=== PATIENT | female | born 1935 | race Caucasian/White ===

== ENCOUNTER 2017-03-07 18:15 | Inpatient (IN) | payer MEDICARE ==
[~2017-03-07] VITALS: Ht 165.1 cm; Wt 61.4 kg
[2017-03-07 19:37] LABS: BASO # 0.1 x10^3/uL (0.0-0.2); BASO % 1 % (0-3); EOS # 0.1 x10^3/uL (0.0-0.7); EOS % 1 % (0-3); HEMATOCRIT 38.2 % (36.0-47.0); HEMOGLOBIN 12.9 g/dL (12.0-15.5); LYMPH # 2.4 x10^3/uL (1.0-4.8); LYMPH % 31 % (24-48); MEAN CORPUSCULAR HEMOGLOBIN 35 pg (25-35); MEAN CORPUSCULAR HGB CONC 34 g/dL (31-37); MEAN CORPUSCULAR VOLUME 104 fL (79-100); MONO # 0.8 x10^3/uL (0.0-1.1); MONO % 10 % (0-9); NEUT # 4.6 x10^3uL (1.8-7.7); NEUT % 57 % (31-73); PLATELET COUNT 200 x10^3/uL (140-400); RED BLOOD COUNT 3.67 x10^6/uL (3.50-5.40); RED CELL DISTRIBUTION WIDTH 13.4 % (11.5-14.5)
[2017-03-07 19:41] LABS: ALBUMIN 3.7 g/dL (3.4-5.0); CALCIUM 8.8 mg/dL (8.5-10.1); POTASSIUM 3.9 mmol/L (3.5-5.1); TOTAL BILIRUBIN 0.3 mg/dL (0.2-1.0); TOTAL PROTEIN 7.4 g/dL (6.4-8.2)
[2017-03-07 20:15] LABS: COLOR,URINE YELLOW
[2017-03-07] MEDS ORDERED: ACETAMINOPHEN 325 MG TABLET PO PRN ×2 (20:15→22:00)
[2017-03-07 20:16] LABS: BILIRUBIN,URINE NEG (NEG); CLARITY,URINE CLEAR; GLUCOSE,URINE NEG (NEG); NITRITE,URINE NEG (NEG); UROBILINOGEN,URINE 0.2 mg/dL (0.2 mg/dL)
[2017-03-07 20:23] LABS: BACTERIA,URINE FEW /HPF (0-FEW); HYALINE CASTS, URINE OCC /HPF; RBC,URINE OCC /HPF (0-2); SQUAMOUS EPITHELIAL CELL,UR OCC /LPF; WBC,URINE OCC /HPF (0-4)
[2017-03-07] MEDS ORDERED: DONEPEZIL PO (21:42)
[2017-03-07] MEDS ORDERED: METO50TA4 PO (21:42)
[2017-03-07] MEDS ORDERED: ACET325T21 PO (21:42)
[2017-03-07] MEDS ORDERED: ALEN70TA5 PO (21:42)
[2017-03-07] MEDS ORDERED: CHOL20009 PO (21:42)
[2017-03-07] MEDS ORDERED: CYAN10002 IM (21:42)
[2017-03-07] MEDS ORDERED: LEVO150T5 PO (21:42)
[2017-03-07] MEDS ORDERED: SERT50TA PO (21:42)
[2017-03-07] MEDS ORDERED: OLAN5TAB5 PO (21:42)
[2017-03-07] MEDS ORDERED: QUET25TA5 PO (21:42)
[2017-03-07] MEDS ORDERED: ASCO10002 PO (21:42)
[2017-03-07] MEDS ORDERED: AMLO5TAB4 PO (21:42)
[2017-03-07] MEDS ORDERED: ABH CREAM TD (21:42)
[2017-03-07] MEDS ORDERED: MEMA28CA PO (21:42)
[2017-03-07] MEDS ORDERED: CALC-112 PO (21:42)
[2017-03-07] MEDS ORDERED: LOPE2TAB27 PO (21:47)
[2017-03-07] MEDS ORDERED: METHYL SALICYLATE/MENTHOL TOPICAL OINTMENT 29GM TUBE. TP PRN (22:00)
[2017-03-07] MEDS ORDERED: MAGNESIUM HYDROXIDE 2,400 MG/30 ML ORAL.SUSP. PO PRN (22:00)
[2017-03-07] MEDS ORDERED: MAG HYDROX/AL HYDROX/SIMETH 30 ML ORAL.SUSP PO PRN (22:00)
[2017-03-07 22:07] VITALS: BP 160/85
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
--- NOTE | 2017-03-08 00:10 | EKG ---
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
[2017-03-08] MEDS ORDERED: ABH TD PRN (06:00)
[2017-03-08] MEDS ORDERED: ACETAMINOPHEN 325 MG TABLET PO PRN (06:00)
[2017-03-08 06:02] VITALS: BP 129/80
[2017-03-08] MEDS ORDERED: LOPERAMIDE 2 MG CAPSULE PO PRN (07:30)
[2017-03-08] MEDS: CHOLECALCIFEROL (VITAMIN D3) 1,000 UNIT TABLET PO SCH ×2 (07:52→09:00)
[2017-03-08] MEDS: SERTRALINE 50 MG TABLET. PO SCH (07:53)
[2017-03-08] MEDS: ASCORBIC ACID 500 MG TABLET PO SCH ×2 (07:53→09:00)
[2017-03-08] MEDS: amLODIPine BESYLATE 5 MG TABLET PO SCH (07:53)
[2017-03-08] MEDS: CALCIUM CARB/VIT D3 500/200 TABLET PO SCH ×2 (07:53→09:00)
[2017-03-08] MEDS: MEMANTINE 10 MG TABLET. PO SCH ×2 (07:54→20:21)
[2017-03-08] MEDS: LEVOTHYROXINE 150 MCG TABLET PO SCH (07:54)
[2017-03-08] MEDS: METOPROLOL SUCC 24HR ER 50 MG TAB.ER.24H. PO SCH ×2 (07:54→09:00)
[2017-03-08] MEDS: QUEtiapine 25 MG TABLET. PO SCH ×3 (07:54→20:22)
[2017-03-08] MEDS ORDERED: CYANOCOBALAMIN (VITAMIN B-12) 1,000 MCG/ML VIAL IM SCH (09:00)
--- NOTE | 2017-03-08 11:27 | PDOC ---
Exam Note: Brenden Note: Please also refer to the separate dictated note~for this date of service dictated separately.~Patient seen individually. Discussed the patient with Nursing staff reviewed the chart.~Reviewed interim history and current functioning. Reviewed vital signs,~Labs/ Radiology~and current medications noted below. Continue current treatment with the changes noted in the dictated addendum note Assessment: Vital Signs: Vital Signs Date Time Temp Pulse Resp B/P (MAP) Pulse Ox O2 Delivery O2 Flow Rate FiO2 03/08/17 07:54 64 129/80 03/08/17 06:02 98.2 18 93 03/07/17 18:23 Room Air Labs: Laboratory Tests Test 03/07/17 19:00 03/07/17 20:00 White Blood Count 8.0 x10^3/uL (4.0-11.0) Red Blood Count 3.67 x10^6/uL (3.50-5.40) Hemoglobin 12.9 g/dL (12.0-15.5) Hematocrit 38.2 % (36.0-47.0) Mean Corpuscular Volume 104 fL (79-100) H Mean Corpuscular Hemoglobin 35 pg (25-35) Mean Corpuscular Hemoglobin Concent 34 g/dL (31-37) Red Cell Distribution Width 13.4 % (11.5-14.5) Platelet Count 200 x10^3/uL (140-400) Neutrophils (%) (Auto) 57 % (31-73) Lymphocytes (%) (Auto) 31 % (24-48) Monocytes (%) (Auto) 10 % (0-9) H Eosinophils (%) (Auto) 1 % (0-3) Basophils (%) (Auto) 1 % (0-3) Neutrophils # (Auto) 4.6 x10^3uL (1.8-7.7) Lymphocytes # (Auto) 2.4 x10^3/uL (1.0-4.8) Monocytes # (Auto) 0.8 x10^3/uL (0.0-1.1) Eosinophils # (Auto) 0.1 x10^3/uL (0.0-0.7) Basophils # (Auto) 0.1 x10^3/uL (0.0-0.2) Sodium Level 143 mmol/L (136-145) Potassium Level 3.9 mmol/L (3.5-5.1) Chloride Level 106 mmol/L (98-107) Carbon Dioxide Level 28 mmol/L (21-32) Anion Gap 9 (6-14) Blood Urea Nitrogen 12 mg/dL (7-20) Creatinine 1.0 mg/dL (0.6-1.0) Estimated GFR (Cockcroft-Gault) 53.0 BUN/Creatinine Ratio 12 (6-20) Glucose Level 75 mg/dL (70-99) Calcium Level 8.8 mg/dL (8.5-10.1) Magnesium Level 2.0 mg/dL (1.8-2.4) Total Bilirubin 0.3 mg/dL (0.2-1.0) Aspartate Amino Transferase (AST) 19 U/L (15-37) Alanine Aminotransferase (ALT) 21 U/L (14-59) Alkaline Phosphatase 59 U/L (46-116) Total Protein 7.4 g/dL (6.4-8.2) Albumin 3.7 g/dL (3.4-5.0) Albumin/Globulin Ratio 1.0 (1.0-1.7) Urine Collection Type Void Urine Color Yellow Urine Clarity Clear Urine pH 6.0 Urine Specific [place] 1.020 Urine Protein Neg (NEG-TRACE) Urine Glucose (UA) Neg mg/dL (NEG) Urine Ketones (Stick) Trace mg/dL (NEG) Urine Blood Neg (NEG) Urine Nitrite Neg (NEG) Urine Bilirubin Neg (NEG) Urine Urobilinogen Dipstick 0.2 mg/dL (0.2 mg/dL) Urine Leukocyte Esterase Neg (NEG) Urine RBC Occ /HPF (0-2) Urine WBC Occ /HPF (0-4) Urine Squamous Epithelial Cells Occ /LPF Urine Bacteria Few /HPF (0-FEW) Urine Hyaline Casts Occ /HPF Urine Mucus Slight /LPF Current Medications: Meds: Current Medications Acetaminophen (Tylenol) 650 mg PRN Q6HRS PRN PO PAIN / TEMP; Start 03/07/17 at 20:15; Stop 03/07/17 at 22:01; Status DC Acetaminophen (Tylenol) 650 mg PRN Q6HRS PRN PO PAIN / TEMP; Start 03/07/17 at 22:00 Multi-Ingredient Ointment (Analgesic [place]) 1 pillo PRN QID PRN TP MUSCLE PAIN; Start 03/07/17 at 22:00 Al Hydroxide/Mg Hydroxide (Mylanta Plus Xs) 15 ml PRN AFTMEALHC PRN PO DYSPEPSIA; Start 03/07/17 at 22:00 Magnesium Hydroxide (Milk Of Magnesia) 2,400 mg PRN QHS PRN PO CONSTIPATION; Start 03/07/17 at 22:00 Olanzapine (ZyPREXA ZYDIS) 2.5 mg PRN Q2HR PRN PO PSYCHOSIS Last administered on 03/08/17at 06:36; Start 03/07/17 at 22:15 Quetiapine Fumarate (SEROquel) 25 mg TID PO Last administered on 03/08/17at 07: 54; Start 03/08/17 at 09:00 Sertraline HCl (Zoloft) 50 mg DAILY PO Last administered on 03/08/17at 07:53; Start 03/08/17 at 09:00 Acetaminophen (Tylenol) 325 mg PRN Q6HRS PRN PO PAIN / TEMP; Start 03/08/17 at 06:00 Amlodipine Besylate (Norvasc) 5 mg DAILY PO Last administered on 03/08/17at 07: 53; Start 03/08/17 at 09:00 Cyanocobalamin (Vitamin B-12) 1,000 mcg QMONTH IM ; Start 03/08/17 at 09:00 Levothyroxine Sodium (Synthroid) 150 mcg DAILY06 PO Last administered on at 07:54; Start 03/08/17 at 07:30 Metoprolol Succinate (Toprol Xl) 50 mg DAILY PO Last administered on 03/08/17at 07:54; Start 03/08/17 at 09:00 Alendronate Sodium (Fosamax) 70 mg Q7D PO ; Start 03/09/17 at 06:00 Ascorbic Acid (Vitamin C) 1,000 mg DAILY PO Last administered on 03/08/17at 07: 53; Start 03/08/17 at 09:00 Calcium/Vitamin D (Oscal D 500mg/ 200uts) 1 tab DAILY PO Last administered on at 07:53; Start 03/08/17 at 09:00 Vitamin D (Vitamin D3) 2,000 unit DAILY PO Last administered on 03/08/17at 07:52 ; Start 03/08/17 at 09:00 Loperamide HCl (Imodium) 4 mg PRN DAILY PRN PO LOOSE STOOL; Start 03/08/17 at 07:30 Memantine (Namenda) 10 mg BID PO Last administered on 03/08/17at 07:54; Start at 09:00 Non-Formulary Medication 1 ml PRN TID PRN TD ANXIETY / AGITATION; Start at 06:00; Status UNV Donepezil HCl (Aricept) 23 mg QHS PO ; Start 03/08/17 at 21:00 Active Scripts Active Reported Loperamide (Loperamide Hcl) 2 Mg Tablet 4 Mg PO PRN DAILY PRN Acetaminophen 325 Mg Tablet 325 Mg PO PRN Q6HRS PRN [Abh Cream] 1 Ml TD PRN TID PRN Vitamin D3 (Cholecalciferol (Vitamin D3)) 2,000 Unit Capsule 2,000 Unit PO DAILY Vitamin C (Ascorbic Acid) 1,000 Mg Tablet 1,000 Mg PO DAILY Zoloft (Sertraline Hcl) 50 Mg Tablet 50 Mg PO DAILY Seroquel (Quetiapine Fumarate) 25 Mg Tablet 25 Mg PO TID Namenda Xr (Memantine Hcl) 28 Mg Cap.spr.24 28 Mg PO DAILY Toprol Xl (Metoprolol Succinate) 50 Mg Tab.er.24h 50 Mg PO DAILY Levothyroxine Sodium 150 Mcg Tablet 150 Mcg PO DAILYAC Zyprexa Zydis (Olanzapine) 5 Mg Tab.rapdis 2.5 Mg PO PRN Q2HR PRN MDD 7.5 [Donepezil] 23 Mg PO QHS Cyanocobalamin Injection (Cyanocobalamin (Vitamin B-12)) 1,000 Mcg/1 Ml Vial 1, 000 Mcg IJ QMONTH Citracal + D Er Tablet (Calcium Carb & Cit/Vitamin D3) 1 Each Tablet.er 1 Each PO DAILY Norvasc (Amlodipine Besylate) 5 Mg Tablet 5 Mg PO DAILY Alendronate Sodium 70 Mg Tablet 70 Mg PO QFR I have reviewed the current psychotropics carefully including drug interactions. Risk benefit ratio favors no change other than as noted in my dictated progress note. Diagnosis: Problems: (1) Anxiety disorder (2) Dementia in Alzheimer's disease with delusions (3) Dementia in Alzheimer's disease with depression (4) Dementia, vascular, with delusions (5) Dementia, vascular, with depression (6) Impulse control disorder FALGUNI RUBIO MD Mar 08, 2017 11:27
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
[2017-03-08 12:44] LABS: THYROID STIM HORMONE (TSH) 69.972 uIU/mL (0.358-3.740)
--- NOTE | 2017-03-08 14:33 | HP ---
ADMIT DATE: 03/07/2017 PSYCHIATRIC ADMISSION HISTORY AND EVALUATION This note covers the elements not covered in my initial note of 03/08/2017. This patient is at [facility], but the telephone line is down at the hospital and I am dictating at the [facility] system. IDENTIFYING DATA: The patient is an 81-year-old female referred to us from [facility] in [place], [place] by Dr. Asif Sanders, her primary care physician, on account of worsening confusion, violent outbursts, being destructive to property, combative with staff and making suicidal statements and exit seeking. She has also been aggressive and combative with patience. She has failed outpatient psychiatric interventions, referred for inpatient psychiatric stabilization. CHIEF COMPLAINT: "No, I won't do that". The patient is quite disorganized, walking up and down the hallway, paranoid about anything I talk to her, refused her physical exam with Dr. Beauchamp. Nursing staff informed me earlier in the day that they already had to administer Zyprexa p.r.n. on 2 or 3 occasions on account of her agitation and psychosis. HISTORY OF PRESENT ILLNESS: The patient has a history of dementia and Alzheimer's, vascular type. She has been residing at the above group home for some time, but over the recent past, she has been extremely agitated, aggressive, paranoid and delusional. She presented to the Emergency Room at [facility] and the code pope had to be called in the Emergency Room and the patient had arrived in restraints. She was agitated, irritable with marked mood lability. No clear history of bipolar disorder or homicidal ideation. She is disorganized, unable to describe to me any specific suicidal plans. PAST PSYCHIATRIC HISTORY: As above. PAST MEDICAL HISTORY: Hypothyroidism and hypertension. ALLERGIES: SULFA. CODE STATUS: Full. ACCU-CHEKS: None. DIET: Regular. Takes her medications hidden, ambulates ad olya. U/A is negative. CURRENT PSYCHOTROPICS: Aricept 23 mg p.o. at bedtime, Namenda XR 28 mg a day, Seroquel 25 mg 3 times a day, Zoloft 50 mg a day, Ativan, Benadryl, haloperidol cream 1 mL a.m. and p.r.n. Zyprexa p.r.n. was added. FAMILY HISTORY: Noncontributory. SOCIAL HISTORY: No history of alcohol or drug abuse. No physical, sexual or elder abuse history is noted. Not known to be a perpetrator. MENTAL STATUS EXAMINATION: The patient was seen individually on the morning of 03/08/2017. She is ambulating up and down the hallway, quite paranoid, suspicious, confused. Insight, judgment, recent and remote memory, attention, concentration and fund of knowledge poor, consistent with her diagnosis. REACTION TO HOSPITALIZATION: The patient is oblivious of this. ASSETS: Stable living at the above group home. IMPRESSION: Major neurocognitive disorder; Alzheimer, vascular with depression, delusion and behavioral disturbance; anxiety disorder, unspecified and impulse control disorder, unspecified. Rest diagnoses as above. PLAN: Admit to Geropsychiatry Unit at [facility]. I will see the patient daily individually. Request medical followup with Dr. Beauchamp/Dr. Canales. Change the Namenda XR 28 mg a day to Namenda 10 mg twice a day, though I am not sure what benefit she would have with Aricept and Namenda at this stage of dementia, and we will reassess this. Maintain Seroquel and Zoloft and we do not have the ABH cream; we will use Zyprexa instead. Consider Depakote as a mood stabilizer, but I would like to give it another day for assessment before deciding. MAN Minna RUBIO MD DR: JAMEE/rachael JOB#: [id number] / [id number]
[2017-03-08 15:49] VITALS: BP 159/81
--- NOTE | 2017-03-08 20:00 | PDOC ---
Exam Note: Brenden Note: Please also refer to the separate dictated note~for this date of service dictated separately.~Patient seen individually. Discussed the patient with Nursing staff reviewed the chart.~Reviewed interim history and current functioning. Reviewed vital signs,~Labs/ Radiology~and current medications noted below. Continue current treatment with the changes noted in the dictated addendum note Assessment: Vital Signs: Vital Signs Date Time Temp Pulse Resp B/P (MAP) Pulse Ox O2 Delivery O2 Flow Rate FiO2 03/08/17 15:49 97.8 81 16 159/81 (107) 96 03/07/17 18:23 Room Air Current Medications: Meds: Current Medications Acetaminophen (Tylenol) 650 mg PRN Q6HRS PRN PO PAIN / TEMP; Start 03/07/17 at 20:15; Stop 03/07/17 at 22:01; Status DC Acetaminophen (Tylenol) 650 mg PRN Q6HRS PRN PO PAIN / TEMP; Start 03/07/17 at 22:00 Multi-Ingredient Ointment (Analgesic [place]) 1 pillo PRN QID PRN TP MUSCLE PAIN; Start 03/07/17 at 22:00 Al Hydroxide/Mg Hydroxide (Mylanta Plus Xs) 15 ml PRN AFTMEALHC PRN PO DYSPEPSIA; Start 03/07/17 at 22:00 Magnesium Hydroxide (Milk Of Magnesia) 2,400 mg PRN QHS PRN PO CONSTIPATION; Start 03/07/17 at 22:00 Olanzapine (ZyPREXA ZYDIS) 2.5 mg PRN Q2HR PRN PO PSYCHOSIS Last administered on 03/08/17at 06:36; Start 03/07/17 at 22:15 Quetiapine Fumarate (SEROquel) 25 mg TID PO Last administered on 03/08/17at 15: 31; Start 03/08/17 at 09:00 Sertraline HCl (Zoloft) 50 mg DAILY PO Last administered on 03/08/17at 07:53; Start 03/08/17 at 09:00 Acetaminophen (Tylenol) 325 mg PRN Q6HRS PRN PO PAIN / TEMP; Start 03/08/17 at 06:00 Amlodipine Besylate (Norvasc) 5 mg DAILY PO Last administered on 03/08/17at 07: 53; Start 03/08/17 at 09:00 Cyanocobalamin (Vitamin B-12) 1,000 mcg QMONTH IM ; Start 03/08/17 at 09:00; Stop 03/08/17 at 11:44; Status DC Levothyroxine Sodium (Synthroid) 150 mcg DAILY06 PO Last administered on at 07:54; Start 03/08/17 at 07:30 Metoprolol Succinate (Toprol Xl) 50 mg DAILY PO ; Start 03/08/17 at 09:00 Alendronate Sodium (Fosamax) 70 mg Q7D PO ; Start 03/09/17 at 06:00 Ascorbic Acid (Vitamin C) 1,000 mg DAILY PO ; Start 03/08/17 at 09:00 Calcium/Vitamin D (Oscal D 500mg/ 200uts) 1 tab DAILY PO ; Start 03/08/17 at 09: 00 Vitamin D (Vitamin D3) 2,000 unit DAILY PO ; Start 03/08/17 at 09:00 Loperamide HCl (Imodium) 4 mg PRN DAILY PRN PO LOOSE STOOL; Start 03/08/17 at 07:30 Memantine (Namenda) 10 mg BID PO Last administered on 03/08/17at 07:54; Start at 09:00 Non-Formulary Medication 1 ml PRN TID PRN TD ANXIETY / AGITATION; Start at 06:00; Stop 03/08/17 at 16:34; Status DC Donepezil HCl (Aricept) 23 mg QHS PO ; Start 03/08/17 at 21:00 Cyanocobalamin (Vitamin B-12) 1,000 mcg QMONTH IM ; Start 03/17/17 at 09:00 Active Scripts Active Reported Loperamide (Loperamide Hcl) 2 Mg Tablet 4 Mg PO PRN DAILY PRN Acetaminophen 325 Mg Tablet 325 Mg PO PRN Q6HRS PRN [Abh Cream] 1 Ml TD PRN TID PRN Vitamin D3 (Cholecalciferol (Vitamin D3)) 2,000 Unit Capsule 2,000 Unit PO DAILY Vitamin C (Ascorbic Acid) 1,000 Mg Tablet 1,000 Mg PO DAILY Zoloft (Sertraline Hcl) 50 Mg Tablet 50 Mg PO DAILY Seroquel (Quetiapine Fumarate) 25 Mg Tablet 25 Mg PO TID Namenda Xr (Memantine Hcl) 28 Mg Cap.spr.24 28 Mg PO DAILY Toprol Xl (Metoprolol Succinate) 50 Mg Tab.er.24h 50 Mg PO DAILY Levothyroxine Sodium 150 Mcg Tablet 150 Mcg PO DAILYAC Zyprexa Zydis (Olanzapine) 5 Mg Tab.rapdis 2.5 Mg PO PRN Q2HR PRN MDD 7.5 [Donepezil] 23 Mg PO QHS Cyanocobalamin Injection (Cyanocobalamin (Vitamin B-12)) 1,000 Mcg/1 Ml Vial 1, 000 Mcg IJ QMONTH Citracal + D Er Tablet (Calcium Carb & Cit/Vitamin D3) 1 Each Tablet.er 1 Each PO DAILY Norvasc (Amlodipine Besylate) 5 Mg Tablet 5 Mg PO DAILY Alendronate Sodium 70 Mg Tablet 70 Mg PO QFR I have reviewed the current psychotropics carefully including drug interactions. Risk benefit ratio favors no change other than as noted in my dictated progress note. Diagnosis: Problems: (1) Dementia with behavioral disturbance (2) Anxiety disorder (3) Impulse control disorder (4) Dementia, vascular, with depression (5) Dementia, vascular, with delusions (6) Dementia in Alzheimer's disease with depression (7) Dementia in Alzheimer's disease with delusions (8) Suicidal ideation FALGUNI RUBIO MD Mar 08, 2017 20:00
[2017-03-08] MEDS: DONEPEZIL 23 MG TABLET PO SCH (20:22)
[2017-03-08 22:11] LABS: T3 TOTAL 67 ng/dL (71-180); THYROXINE 3.3 ug/dL (4.5-12.0)
[2017-03-09 02:08] LABS: HEMOGLOBIN A1C 5.2 % (4.8-5.6)
[2017-03-09] MEDS: LEVOTHYROXINE 150 MCG TABLET PO SCH (06:27)
[2017-03-09] MEDS: ALENDRONATE SODIUM 35 MG TABLET PO SCH (06:32)
[2017-03-09] MEDS: METOPROLOL SUCC 24HR ER 50 MG TAB.ER.24H. PO SCH (08:17)
[2017-03-09] MEDS: QUEtiapine 25 MG TABLET. PO SCH ×3 (08:17→19:48)
[2017-03-09] MEDS: amLODIPine BESYLATE 5 MG TABLET PO SCH (08:17)
[2017-03-09] MEDS: CALCIUM CARB/VIT D3 500/200 TABLET PO SCH (08:17)
[2017-03-09] MEDS: ASCORBIC ACID 500 MG TABLET PO SCH (08:17)
[2017-03-09] MEDS: MEMANTINE 10 MG TABLET. PO SCH ×2 (08:17→19:48)
[2017-03-09] MEDS: SERTRALINE 50 MG TABLET. PO SCH (08:17)
[2017-03-09] MEDS: CHOLECALCIFEROL (VITAMIN D3) 1,000 UNIT TABLET PO SCH (08:18)
[2017-03-09 15:58] VITALS: BP 114/63
[2017-03-09] MEDS: DONEPEZIL 23 MG TABLET PO SCH (19:48)
--- NOTE | 2017-03-09 20:01 | PDOC ---
Exam Note: Brenden Note: Please also refer to the separate dictated note~for this date of service dictated separately.~Patient seen individually. Discussed the patient with Nursing staff reviewed the chart.~Reviewed interim history and current functioning. Reviewed vital signs,~Labs/ Radiology~and current medications noted below. Continue current treatment with the changes noted in the dictated addendum note Assessment: Vital Signs: Vital Signs Date Time Temp Pulse Resp B/P (MAP) Pulse Ox O2 Delivery O2 Flow Rate FiO2 03/09/17 15:58 98.3 83 20 114/63 (80) 03/08/17 15:49 96 03/07/17 18:23 Room Air I&O Intake and Output 03/09/17 07:00 Intake Total 1200 ml Balance 1200 ml Intake Oral 1200 ml Current Medications: Meds: Current Medications Acetaminophen (Tylenol) 650 mg PRN Q6HRS PRN PO PAIN / TEMP; Start 03/07/17 at 20:15; Stop 03/07/17 at 22:01; Status DC Acetaminophen (Tylenol) 650 mg PRN Q6HRS PRN PO PAIN / TEMP; Start 03/07/17 at 22:00 Multi-Ingredient Ointment (Analgesic [place]) 1 pillo PRN QID PRN TP MUSCLE PAIN; Start 03/07/17 at 22:00 Al Hydroxide/Mg Hydroxide (Mylanta Plus Xs) 15 ml PRN AFTMEALHC PRN PO DYSPEPSIA; Start 03/07/17 at 22:00 Magnesium Hydroxide (Milk Of Magnesia) 2,400 mg PRN QHS PRN PO CONSTIPATION; Start 03/07/17 at 22:00 Olanzapine (ZyPREXA ZYDIS) 2.5 mg PRN Q2HR PRN PO PSYCHOSIS Last administered on 03/09/17at 15:05; Start 03/07/17 at 22:15 Quetiapine Fumarate (SEROquel) 25 mg TID PO Last administered on 03/09/17at 13: 15; Start 03/08/17 at 09:00; Stop 03/09/17 at 18:21; Status DC Sertraline HCl (Zoloft) 50 mg DAILY PO Last administered on 03/09/17at 08:17; Start 03/08/17 at 09:00 Acetaminophen (Tylenol) 325 mg PRN Q6HRS PRN PO PAIN / TEMP; Start 03/08/17 at 06:00 Amlodipine Besylate (Norvasc) 5 mg DAILY PO Last administered on 03/09/17at 08: 17; Start 03/08/17 at 09:00 Cyanocobalamin (Vitamin B-12) 1,000 mcg QMONTH IM ; Start 03/08/17 at 09:00; Stop 03/08/17 at 11:44; Status DC Levothyroxine Sodium (Synthroid) 150 mcg DAILY06 PO Last administered on at 06:27; Start 03/08/17 at 07:30 Metoprolol Succinate (Toprol Xl) 50 mg DAILY PO Last administered on 03/09/17at 08:17; Start 03/08/17 at 09:00 Alendronate Sodium (Fosamax) 70 mg Q7D PO Last administered on 03/09/17at 06:32 ; Start 03/09/17 at 06:00 Ascorbic Acid (Vitamin C) 1,000 mg DAILY PO Last administered on 03/09/17at 08: 17; Start 03/08/17 at 09:00 Calcium/Vitamin D (Oscal D 500mg/ 200uts) 1 tab DAILY PO Last administered on 08:17; Start 03/08/17 at 09:00 Vitamin D (Vitamin D3) 2,000 unit DAILY PO Last administered on 03/09/17at 08:18 ; Start 03/08/17 at 09:00 Loperamide HCl (Imodium) 4 mg PRN DAILY PRN PO LOOSE STOOL; Start 03/08/17 at 07:30 Memantine (Namenda) 10 mg BID PO Last administered on 03/09/17at 19:48; Start at 09:00 Non-Formulary Medication 1 ml PRN TID PRN TD ANXIETY / AGITATION; Start at 06:00; Stop 03/08/17 at 16:34; Status DC Donepezil HCl (Aricept) 23 mg QHS PO Last administered on 03/09/17at 19:48; Start 03/08/17 at 21:00 Cyanocobalamin (Vitamin B-12) 1,000 mcg QMONTH IM ; Start 03/17/17 at 09:00 Quetiapine Fumarate (SEROquel) 37.5 mg TID PO Last administered on 03/09/17at 19 :48; Start 03/09/17 at 21:00 Active Scripts Active Reported Loperamide (Loperamide Hcl) 2 Mg Tablet 4 Mg PO PRN DAILY PRN Acetaminophen 325 Mg Tablet 325 Mg PO PRN Q6HRS PRN [Abh Cream] 1 Ml TD PRN TID PRN Vitamin D3 (Cholecalciferol (Vitamin D3)) 2,000 Unit Capsule 2,000 Unit PO DAILY Vitamin C (Ascorbic Acid) 1,000 Mg Tablet 1,000 Mg PO DAILY Zoloft (Sertraline Hcl) 50 Mg Tablet 50 Mg PO DAILY Seroquel (Quetiapine Fumarate) 25 Mg Tablet 25 Mg PO TID Namenda Xr (Memantine Hcl) 28 Mg Cap.spr.24 28 Mg PO DAILY Toprol Xl (Metoprolol Succinate) 50 Mg Tab.er.24h 50 Mg PO DAILY Levothyroxine Sodium 150 Mcg Tablet 150 Mcg PO DAILYAC Zyprexa Zydis (Olanzapine) 5 Mg Tab.rapdis 2.5 Mg PO PRN Q2HR PRN MDD 7.5 [Donepezil] 23 Mg PO QHS Cyanocobalamin Injection (Cyanocobalamin (Vitamin B-12)) 1,000 Mcg/1 Ml Vial 1, 000 Mcg IJ QMONTH Citracal + D Er Tablet (Calcium Carb & Cit/Vitamin D3) 1 Each Tablet.er 1 Each PO DAILY Norvasc (Amlodipine Besylate) 5 Mg Tablet 5 Mg PO DAILY Alendronate Sodium 70 Mg Tablet 70 Mg PO QFR I have reviewed the current psychotropics carefully including drug interactions. Risk benefit ratio favors no change other than as noted in my dictated progress note. Diagnosis: Problems: (1) Anxiety disorder (2) Impulse control disorder (3) Dementia, vascular, with depression (4) Dementia, vascular, with delusions (5) Dementia in Alzheimer's disease with depression (6) Dementia in Alzheimer's disease with delusions (7) Suicidal ideation (8) Dementia with behavioral disturbance FALGUNI RUBIO MD Mar 09, 2017 20:01
[2017-03-10] MEDS: LEVOTHYROXINE 150 MCG TABLET PO SCH (05:15)
[2017-03-10] MEDS: CALCIUM CARB/VIT D3 500/200 TABLET PO SCH (07:40)
[2017-03-10] MEDS: QUEtiapine 25 MG TABLET. PO SCH ×3 (07:40→19:36)
[2017-03-10] MEDS: CHOLECALCIFEROL (VITAMIN D3) 1,000 UNIT TABLET PO SCH (07:40)
[2017-03-10] MEDS: amLODIPine BESYLATE 5 MG TABLET PO SCH (07:41)
[2017-03-10] MEDS: MEMANTINE 10 MG TABLET. PO SCH ×2 (07:41→19:35)
[2017-03-10] MEDS: SERTRALINE 50 MG TABLET. PO SCH (07:41)
[2017-03-10] MEDS: METOPROLOL SUCC 24HR ER 50 MG TAB.ER.24H. PO SCH (07:42)
[2017-03-10] MEDS: ASCORBIC ACID 500 MG TABLET PO SCH (07:42)
[2017-03-10 15:43] VITALS: BP 112/67
[2017-03-10] MEDS: DONEPEZIL 23 MG TABLET PO SCH (19:35)
--- NOTE | 2017-03-10 20:04 | PDOC ---
Exam Note: Brenden Note: Please also refer to the separate dictated note~for this date of service dictated separately.~Patient seen individually. Discussed the patient with Nursing staff reviewed the chart.~Reviewed interim history and current functioning. Reviewed vital signs,~Labs/ Radiology~and current medications noted below. Continue current treatment with the changes noted in the dictated addendum note Assessment: Vital Signs: Vital Signs Date Time Temp Pulse Resp B/P (MAP) Pulse Ox O2 Delivery O2 Flow Rate FiO2 03/10/17 15:43 96.8 67 18 112/67 (82) 96 03/07/17 18:23 Room Air I&O Intake and Output 03/10/17 07:00 Intake Total 600 ml Balance 600 ml Intake Oral 600 ml Current Medications: Meds: Current Medications Acetaminophen (Tylenol) 650 mg PRN Q6HRS PRN PO PAIN / TEMP; Start 03/07/17 at 20:15; Stop 03/07/17 at 22:01; Status DC Acetaminophen (Tylenol) 650 mg PRN Q6HRS PRN PO PAIN / TEMP; Start 03/07/17 at 22:00 Multi-Ingredient Ointment (Analgesic [place]) 1 pillo PRN QID PRN TP MUSCLE PAIN; Start 03/07/17 at 22:00 Al Hydroxide/Mg Hydroxide (Mylanta Plus Xs) 15 ml PRN AFTMEALHC PRN PO DYSPEPSIA; Start 03/07/17 at 22:00 Magnesium Hydroxide (Milk Of Magnesia) 2,400 mg PRN QHS PRN PO CONSTIPATION; Start 03/07/17 at 22:00 Olanzapine (ZyPREXA ZYDIS) 2.5 mg PRN Q2HR PRN PO PSYCHOSIS Last administered on 03/10/17at 19:38; Start 03/07/17 at 22:15 Quetiapine Fumarate (SEROquel) 25 mg TID PO Last administered on 03/09/17at 13: 15; Start 03/08/17 at 09:00; Stop 03/09/17 at 18:21; Status DC Sertraline HCl (Zoloft) 50 mg DAILY PO Last administered on 03/10/17at 07:41; Start 03/08/17 at 09:00 Acetaminophen (Tylenol) 325 mg PRN Q6HRS PRN PO PAIN / TEMP; Start 03/08/17 at 06:00; Stop 03/10/17 at 14:41; Status DC Amlodipine Besylate (Norvasc) 5 mg DAILY PO Last administered on 03/10/17at 07: 41; Start 03/08/17 at 09:00 Cyanocobalamin (Vitamin B-12) 1,000 mcg QMONTH IM ; Start 03/08/17 at 09:00; Stop 03/08/17 at 11:44; Status DC Levothyroxine Sodium (Synthroid) 150 mcg DAILY06 PO Last administered on at 05:15; Start 03/08/17 at 07:30 Metoprolol Succinate (Toprol Xl) 50 mg DAILY PO Last administered on 03/10/17at 07:42; Start 03/08/17 at 09:00 Alendronate Sodium (Fosamax) 70 mg Q7D PO Last administered on 03/09/17at 06:32 ; Start 03/09/17 at 06:00 Ascorbic Acid (Vitamin C) 1,000 mg DAILY PO Last administered on 03/10/17at 07: 42; Start 03/08/17 at 09:00 Calcium/Vitamin D (Oscal D 500mg/ 200uts) 1 tab DAILY PO Last administered on at 07:40; Start 03/08/17 at 09:00 Vitamin D (Vitamin D3) 2,000 unit DAILY PO Last administered on 03/10/17at 07:40 ; Start 03/08/17 at 09:00 Loperamide HCl (Imodium) 4 mg PRN DAILY PRN PO LOOSE STOOL; Start 03/08/17 at 07:30 Memantine (Namenda) 10 mg BID PO Last administered on 03/10/17at 19:35; Start at 09:00 Non-Formulary Medication 1 ml PRN TID PRN TD ANXIETY / AGITATION; Start at 06:00; Stop 03/08/17 at 16:34; Status DC Donepezil HCl (Aricept) 23 mg QHS PO Last administered on 03/10/17at 19:35; Start 03/08/17 at 21:00 Cyanocobalamin (Vitamin B-12) 1,000 mcg QMONTH IM ; Start 03/17/17 at 09:00 Quetiapine Fumarate (SEROquel) 37.5 mg TID PO Last administered on 03/10/17at 19 :36; Start 03/09/17 at 21:00 Active Scripts Active Reported Loperamide (Loperamide Hcl) 2 Mg Tablet 4 Mg PO PRN DAILY PRN Acetaminophen 325 Mg Tablet 325 Mg PO PRN Q6HRS PRN [Abh Cream] 1 Ml TD PRN TID PRN Vitamin D3 (Cholecalciferol (Vitamin D3)) 2,000 Unit Capsule 2,000 Unit PO DAILY Vitamin C (Ascorbic Acid) 1,000 Mg Tablet 1,000 Mg PO DAILY Zoloft (Sertraline Hcl) 50 Mg Tablet 50 Mg PO DAILY Seroquel (Quetiapine Fumarate) 25 Mg Tablet 25 Mg PO TID Namenda Xr (Memantine Hcl) 28 Mg Cap.spr.24 28 Mg PO DAILY Toprol Xl (Metoprolol Succinate) 50 Mg Tab.er.24h 50 Mg PO DAILY Levothyroxine Sodium 150 Mcg Tablet 150 Mcg PO DAILYAC Zyprexa Zydis (Olanzapine) 5 Mg Tab.rapdis 2.5 Mg PO PRN Q2HR PRN MDD 7.5 [Donepezil] 23 Mg PO QHS Cyanocobalamin Injection (Cyanocobalamin (Vitamin B-12)) 1,000 Mcg/1 Ml Vial 1, 000 Mcg IJ QMONTH Citracal + D Er Tablet (Calcium Carb & Cit/Vitamin D3) 1 Each Tablet.er 1 Each PO DAILY Norvasc (Amlodipine Besylate) 5 Mg Tablet 5 Mg PO DAILY Alendronate Sodium 70 Mg Tablet 70 Mg PO QFR I have reviewed the current psychotropics carefully including drug interactions. Risk benefit ratio favors no change other than as noted in my dictated progress note. Diagnosis: Problems: (1) Anxiety disorder (2) Impulse control disorder (3) Dementia, vascular, with depression (4) Dementia, vascular, with delusions (5) Dementia in Alzheimer's disease with depression (6) Dementia in Alzheimer's disease with delusions (7) Suicidal ideation (8) Dementia with behavioral disturbance FALGUNI RUBIO MD Mar 10, 2017 20:04
[2017-03-11] MEDS: CHOLECALCIFEROL (VITAMIN D3) 1,000 UNIT TABLET PO SCH (07:22)
[2017-03-11] MEDS: CALCIUM CARB/VIT D3 500/200 TABLET PO SCH (07:22)
[2017-03-11] MEDS: MEMANTINE 10 MG TABLET. PO SCH ×2 (07:22→19:39)
[2017-03-11] MEDS: SERTRALINE 50 MG TABLET. PO SCH (07:22)
[2017-03-11] MEDS: amLODIPine BESYLATE 5 MG TABLET PO SCH (07:22)
[2017-03-11] MEDS: METOPROLOL SUCC 24HR ER 50 MG TAB.ER.24H. PO SCH (07:23)
[2017-03-11] MEDS: LEVOTHYROXINE 150 MCG TABLET PO SCH (07:23)
[2017-03-11] MEDS: QUEtiapine 25 MG TABLET. PO SCH ×3 (07:24→19:39)
[2017-03-11] MEDS: ASCORBIC ACID 500 MG TABLET PO SCH (07:24)
[2017-03-11] MEDS: hydrOXYzine HCL 25 MG TABLET PO PRN ×2 (15:19→19:42)
[2017-03-11 16:45] VITALS: BP 107/58
[2017-03-11] MEDS: DONEPEZIL 23 MG TABLET PO SCH (19:39)
--- NOTE | 2017-03-11 19:49 | PDOC ---
Exam Note: Brenden Note: Please also refer to the separate dictated note~for this date of service dictated separately.~Patient seen individually. Discussed the patient with Nursing staff reviewed the chart.~Reviewed interim history and current functioning. Reviewed vital signs,~Labs/ Radiology~and current medications noted below. Continue current treatment with the changes noted in the dictated addendum note Assessment: Vital Signs: Vital Signs Date Time Temp Pulse Resp B/P (MAP) Pulse Ox O2 Delivery O2 Flow Rate FiO2 03/11/17 16:45 97.5 71 18 107/58 (74) 96 03/07/17 18:23 Room Air I&O Intake and Output 03/11/17 07:00 Intake Total 480 ml Balance 480 ml Intake Oral 480 ml Current Medications: Meds: Current Medications Acetaminophen (Tylenol) 650 mg PRN Q6HRS PRN PO PAIN / TEMP; Start 03/07/17 at 20:15; Stop 03/07/17 at 22:01; Status DC Acetaminophen (Tylenol) 650 mg PRN Q6HRS PRN PO PAIN / TEMP; Start 03/07/17 at 22:00 Multi-Ingredient Ointment (Analgesic [place]) 1 pillo PRN QID PRN TP MUSCLE PAIN; Start 03/07/17 at 22:00 Al Hydroxide/Mg Hydroxide (Mylanta Plus Xs) 15 ml PRN AFTMEALHC PRN PO DYSPEPSIA; Start 03/07/17 at 22:00 Magnesium Hydroxide (Milk Of Magnesia) 2,400 mg PRN QHS PRN PO CONSTIPATION; Start 03/07/17 at 22:00 Olanzapine (ZyPREXA ZYDIS) 2.5 mg PRN Q2HR PRN PO PSYCHOSIS Last administered on 03/11/17at 19:42; Start 03/07/17 at 22:15 Quetiapine Fumarate (SEROquel) 25 mg TID PO Last administered on 03/09/17at 13: 15; Start 03/08/17 at 09:00; Stop 03/09/17 at 18:21; Status DC Sertraline HCl (Zoloft) 50 mg DAILY PO Last administered on 03/11/17at 07:22; Start 03/08/17 at 09:00 Acetaminophen (Tylenol) 325 mg PRN Q6HRS PRN PO PAIN / TEMP; Start 03/08/17 at 06:00; Stop 03/10/17 at 14:41; Status DC Amlodipine Besylate (Norvasc) 5 mg DAILY PO Last administered on 03/11/17at 07: 22; Start 03/08/17 at 09:00 Cyanocobalamin (Vitamin B-12) 1,000 mcg QMONTH IM ; Start 03/08/17 at 09:00; Stop 03/08/17 at 11:44; Status DC Levothyroxine Sodium (Synthroid) 150 mcg DAILY06 PO Last administered on at 07:23; Start 03/08/17 at 07:30 Metoprolol Succinate (Toprol Xl) 50 mg DAILY PO Last administered on 03/11/17at 07:23; Start 03/08/17 at 09:00 Alendronate Sodium (Fosamax) 70 mg Q7D PO Last administered on 03/09/17at 06:32 ; Start 03/09/17 at 06:00 Ascorbic Acid (Vitamin C) 1,000 mg DAILY PO Last administered on 03/11/17at 07: 24; Start 03/08/17 at 09:00 Calcium/Vitamin D (Oscal D 500mg/ 200uts) 1 tab DAILY PO Last administered on at 07:22; Start 03/08/17 at 09:00 Vitamin D (Vitamin D3) 2,000 unit DAILY PO Last administered on 03/11/17at 07:22 ; Start 03/08/17 at 09:00 Loperamide HCl (Imodium) 4 mg PRN DAILY PRN PO LOOSE STOOL; Start 03/08/17 at 07:30 Memantine (Namenda) 10 mg BID PO Last administered on 03/11/17at 19:39; Start at 09:00 Non-Formulary Medication 1 ml PRN TID PRN TD ANXIETY / AGITATION; Start at 06:00; Stop 03/08/17 at 16:34; Status DC Donepezil HCl (Aricept) 23 mg QHS PO Last administered on 03/11/17at 19:39; Start 03/08/17 at 21:00 Cyanocobalamin (Vitamin B-12) 1,000 mcg QMONTH IM ; Start 03/17/17 at 09:00 Quetiapine Fumarate (SEROquel) 37.5 mg TID PO Last administered on 03/11/17at 19 :39; Start 03/09/17 at 21:00 Hydroxyzine HCl (Atarax) 25 mg PRN TID PRN PO ANXIETY / AGITATION Last administered on 03/11/17at 19:42; Start 03/11/17 at 07:45 Lorazepam (Ativan) 0.25 mg PRN Q2HR PRN TP ANXIETY / AGITATION; Start 03/11/17 at 07:45; Status UNV Valproic Acid (Depakene) 125 mg BIDWMEALS PEG ; Start 03/12/17 at 08:00 Active Scripts Active Reported Loperamide (Loperamide Hcl) 2 Mg Tablet 4 Mg PO PRN DAILY PRN Acetaminophen 325 Mg Tablet 325 Mg PO PRN Q6HRS PRN [Abh Cream] 1 Ml TD PRN TID PRN Vitamin D3 (Cholecalciferol (Vitamin D3)) 2,000 Unit Capsule 2,000 Unit PO DAILY Vitamin C (Ascorbic Acid) 1,000 Mg Tablet 1,000 Mg PO DAILY Zoloft (Sertraline Hcl) 50 Mg Tablet 50 Mg PO DAILY Seroquel (Quetiapine Fumarate) 25 Mg Tablet 25 Mg PO TID Namenda Xr (Memantine Hcl) 28 Mg Cap.spr.24 28 Mg PO DAILY Toprol Xl (Metoprolol Succinate) 50 Mg Tab.er.24h 50 Mg PO DAILY Levothyroxine Sodium 150 Mcg Tablet 150 Mcg PO DAILYAC Zyprexa Zydis (Olanzapine) 5 Mg Tab.rapdis 2.5 Mg PO PRN Q2HR PRN MDD 7.5 [Donepezil] 23 Mg PO QHS Cyanocobalamin Injection (Cyanocobalamin (Vitamin B-12)) 1,000 Mcg/1 Ml Vial 1, 000 Mcg IJ QMONTH Citracal + D Er Tablet (Calcium Carb & Cit/Vitamin D3) 1 Each Tablet.er 1 Each PO DAILY Norvasc (Amlodipine Besylate) 5 Mg Tablet 5 Mg PO DAILY Alendronate Sodium 70 Mg Tablet 70 Mg PO QFR I have reviewed the current psychotropics carefully including drug interactions. Risk benefit ratio favors no change other than as noted in my dictated progress note. Diagnosis: Problems: (1) Anxiety disorder (2) Impulse control disorder (3) Dementia, vascular, with depression (4) Dementia, vascular, with delusions (5) Dementia in Alzheimer's disease with depression (6) Dementia in Alzheimer's disease with delusions (7) Suicidal ideation (8) Dementia with behavioral disturbance FALGUNI RUBIO MD Mar 11, 2017 19:49
--- NOTE | 2017-03-12 01:09 | PN ---
DATE: 03/09/2017 This is a late entry 03/09/2017 covers elements not covered in my initial note 03/09/2017. Met with the patient on the evening of 03/09/2017. The patient remains quite confused, spit out her medications at night. Took her meds and Boost on 03/09/2017, quite paranoid. No CV, , pulmonary, eye, ENT system symptoms on review. Reliability poor. MENTAL STATUS EXAM: Oriented to herself. Insight, judgment, recent and remote memory, attention, concentration, fund of knowledge poor, consistent with her diagnosis mentioned in my initial note. IMPRESSION: Major neurocognitive disorder, Alzheimer, vascular with depression, delusion, behavioral disturbance. PLAN: Increase Seroquel from 25 mg t.i.d. to 37.5 mg t.i.d. Continue rest psychotropics unchanged, Namenda, Aricept, Zoloft. FALGUNI RUBIO MD DR: JAMEE/rachael JOB#: [id number] / [id number]
--- NOTE | 2017-03-12 01:11 | PN ---
DATE: 03/10/2017 This note covers elements not covered in my initial note of 03/10/2017. I met with the patient in the evening of 03/10. The patient slept 6-3/4 hours previous evening, anxious, but less agitated. Her son came to visit and she did not follow him or get aggressive once he was leaving. REVIEW OF SYSTEMS: No CV, , pulmonary, eye, ENT system symptoms on review. Reliability poor. MENTAL STATUS EXAM: Oriented to herself. Insight, judgment, recent and remote memory, attention, concentration, fund of knowledge poor, consistent with her diagnosis mentioned in my initial note. IMPRESSION: Major neurocognitive disorder, Alzheimer, vascular with depression, delusion, behavioral disturbance. PLAN: Continue psychotropics mentioned in my initial note, Aricept, Namenda and Seroquel was increased and Zoloft for now. MAN Minna RUBIO MD DR: JAMEE/rachael JOB#: [id number] / [id number]
[2017-03-12] MEDS: LEVOTHYROXINE 150 MCG TABLET PO SCH (07:36)
[2017-03-12] MEDS: MEMANTINE 10 MG TABLET. PO SCH ×2 (07:37→20:29)
[2017-03-12] MEDS: CALCIUM CARB/VIT D3 500/200 TABLET PO SCH (07:37)
[2017-03-12] MEDS: ASCORBIC ACID 500 MG TABLET PO SCH (07:37)
[2017-03-12] MEDS: CHOLECALCIFEROL (VITAMIN D3) 1,000 UNIT TABLET PO SCH (07:37)
[2017-03-12] MEDS: QUEtiapine 25 MG TABLET. PO SCH ×3 (07:38→20:28)
[2017-03-12] MEDS: SERTRALINE 50 MG TABLET. PO SCH (07:39)
[2017-03-12] MEDS: VALPROATE ACID 250 MG/5 ML ORAL SOLUTION PEG SCH ×2 (07:45→17:00)
[2017-03-12 09:16] VITALS: BP 114/65
[2017-03-12] MEDS: METOPROLOL SUCC 24HR ER 50 MG TAB.ER.24H. PO SCH (09:43)
[2017-03-12] MEDS: amLODIPine BESYLATE 5 MG TABLET PO SCH (09:44)
[2017-03-12] MEDS: hydrOXYzine HCL 25 MG TABLET PO PRN (15:44)
[2017-03-12 16:02] VITALS: BP 130/65
--- NOTE | 2017-03-12 20:07 | PDOC ---
Exam Note: Brenden Note: Please also refer to the separate dictated note~for this date of service dictated separately.~Patient seen individually. Discussed the patient with Nursing staff reviewed the chart.~Reviewed interim history and current functioning. Reviewed vital signs,~Labs/ Radiology~and current medications noted below. Continue current treatment with the changes noted in the dictated addendum note Assessment: Vital Signs: Vital Signs Date Time Temp Pulse Resp B/P (MAP) Pulse Ox O2 Delivery O2 Flow Rate FiO2 03/12/17 16:02 98.1 76 18 130/65 (86) 99 03/12/17 09:16 Room Air I&O Intake and Output 03/12/17 07:00 Intake Total 720 ml Balance 720 ml Intake Oral 720 ml Current Medications: Meds: Current Medications Acetaminophen (Tylenol) 650 mg PRN Q6HRS PRN PO PAIN / TEMP; Start 03/07/17 at 20:15; Stop 03/07/17 at 22:01; Status DC Acetaminophen (Tylenol) 650 mg PRN Q6HRS PRN PO PAIN / TEMP; Start 03/07/17 at 22:00 Multi-Ingredient Ointment (Analgesic [place]) 1 pillo PRN QID PRN TP MUSCLE PAIN; Start 03/07/17 at 22:00 Al Hydroxide/Mg Hydroxide (Mylanta Plus Xs) 15 ml PRN AFTMEALHC PRN PO DYSPEPSIA; Start 03/07/17 at 22:00 Magnesium Hydroxide (Milk Of Magnesia) 2,400 mg PRN QHS PRN PO CONSTIPATION; Start 03/07/17 at 22:00 Olanzapine (ZyPREXA ZYDIS) 2.5 mg PRN Q2HR PRN PO PSYCHOSIS Last administered on 03/12/17at 15:44; Start 03/07/17 at 22:15 Quetiapine Fumarate (SEROquel) 25 mg TID PO Last administered on 03/09/17at 13: 15; Start 03/08/17 at 09:00; Stop 03/09/17 at 18:21; Status DC Sertraline HCl (Zoloft) 50 mg DAILY PO Last administered on 03/12/17at 07:39; Start 03/08/17 at 09:00 Acetaminophen (Tylenol) 325 mg PRN Q6HRS PRN PO PAIN / TEMP; Start 03/08/17 at 06:00; Stop 03/10/17 at 14:41; Status DC Amlodipine Besylate (Norvasc) 5 mg DAILY PO Last administered on 03/12/17at 09: 44; Start 03/08/17 at 09:00 Cyanocobalamin (Vitamin B-12) 1,000 mcg QMONTH IM ; Start 03/08/17 at 09:00; Stop 03/08/17 at 11:44; Status DC Levothyroxine Sodium (Synthroid) 150 mcg DAILY06 PO Last administered on at 07:36; Start 03/08/17 at 07:30 Metoprolol Succinate (Toprol Xl) 50 mg DAILY PO Last administered on 03/12/17at 09:43; Start 03/08/17 at 09:00 Alendronate Sodium (Fosamax) 70 mg Q7D PO Last administered on 03/09/17at 06:32 ; Start 03/09/17 at 06:00 Ascorbic Acid (Vitamin C) 1,000 mg DAILY PO Last administered on 03/12/17at 07: 37; Start 03/08/17 at 09:00 Calcium/Vitamin D (Oscal D 500mg/ 200uts) 1 tab DAILY PO Last administered on at 07:37; Start 03/08/17 at 09:00 Vitamin D (Vitamin D3) 2,000 unit DAILY PO Last administered on 03/12/17at 07:37 ; Start 03/08/17 at 09:00 Loperamide HCl (Imodium) 4 mg PRN DAILY PRN PO LOOSE STOOL; Start 03/08/17 at 07:30 Memantine (Namenda) 10 mg BID PO Last administered on 03/12/17at 07:37; Start at 09:00 Non-Formulary Medication 1 ml PRN TID PRN TD ANXIETY / AGITATION; Start at 06:00; Stop 03/08/17 at 16:34; Status DC Donepezil HCl (Aricept) 23 mg QHS PO Last administered on 03/11/17at 19:39; Start 03/08/17 at 21:00 Cyanocobalamin (Vitamin B-12) 1,000 mcg QMONTH IM ; Start 03/17/17 at 09:00 Quetiapine Fumarate (SEROquel) 37.5 mg TID PO Last administered on 03/12/17at 14 :00; Start 03/09/17 at 21:00 Hydroxyzine HCl (Atarax) 25 mg PRN TID PRN PO ANXIETY / AGITATION Last administered on 03/12/17at 15:44; Start 03/11/17 at 07:45 Lorazepam (Ativan) 0.25 mg PRN Q2HR PRN TP ANXIETY / AGITATION; Start 03/11/17 at 07:45 Valproic Acid (Depakene) 125 mg BIDWMEALS PEG Last administered on 03/12/17at 17 :00; Start 03/12/17 at 08:00 Active Scripts Active Reported Loperamide (Loperamide Hcl) 2 Mg Tablet 4 Mg PO PRN DAILY PRN Acetaminophen 325 Mg Tablet 325 Mg PO PRN Q6HRS PRN [Abh Cream] 1 Ml TD PRN TID PRN Vitamin D3 (Cholecalciferol (Vitamin D3)) 2,000 Unit Capsule 2,000 Unit PO DAILY Vitamin C (Ascorbic Acid) 1,000 Mg Tablet 1,000 Mg PO DAILY Zoloft (Sertraline Hcl) 50 Mg Tablet 50 Mg PO DAILY Seroquel (Quetiapine Fumarate) 25 Mg Tablet 25 Mg PO TID Namenda Xr (Memantine Hcl) 28 Mg Cap.spr.24 28 Mg PO DAILY Toprol Xl (Metoprolol Succinate) 50 Mg Tab.er.24h 50 Mg PO DAILY Levothyroxine Sodium 150 Mcg Tablet 150 Mcg PO DAILYAC Zyprexa Zydis (Olanzapine) 5 Mg Tab.rapdis 2.5 Mg PO PRN Q2HR PRN MDD 7.5 [Donepezil] 23 Mg PO QHS Cyanocobalamin Injection (Cyanocobalamin (Vitamin B-12)) 1,000 Mcg/1 Ml Vial 1, 000 Mcg IJ QMONTH Citracal + D Er Tablet (Calcium Carb & Cit/Vitamin D3) 1 Each Tablet.er 1 Each PO DAILY Norvasc (Amlodipine Besylate) 5 Mg Tablet 5 Mg PO DAILY Alendronate Sodium 70 Mg Tablet 70 Mg PO QFR I have reviewed the current psychotropics carefully including drug interactions. Risk benefit ratio favors no change other than as noted in my dictated progress note. Diagnosis: Problems: (1) Anxiety disorder (2) Impulse control disorder (3) Dementia, vascular, with depression (4) Dementia, vascular, with delusions (5) Dementia in Alzheimer's disease with depression (6) Dementia in Alzheimer's disease with delusions (7) Suicidal ideation (8) Dementia with behavioral disturbance FALGUNI RUBIO MD Mar 12, 2017 20:07
[2017-03-12] MEDS: DONEPEZIL 23 MG TABLET PO SCH (20:28)
[2017-03-13] MEDS: LEVOTHYROXINE 150 MCG TABLET PO SCH (06:28)
[2017-03-13 06:37] VITALS: BP 151/63
[2017-03-13] MEDS: VALPROATE ACID 250 MG/5 ML ORAL SOLUTION PEG SCH ×2 (07:43→16:46)
[2017-03-13] MEDS: MEMANTINE 10 MG TABLET. PO SCH ×2 (07:43→20:20)
[2017-03-13] MEDS: SERTRALINE 50 MG TABLET. PO SCH (07:43)
[2017-03-13] MEDS: QUEtiapine 25 MG TABLET. PO SCH ×2 (07:44→13:14)
[2017-03-13] MEDS: METOPROLOL SUCC 24HR ER 50 MG TAB.ER.24H. PO SCH (07:44)
[2017-03-13] MEDS: amLODIPine BESYLATE 5 MG TABLET PO SCH (07:44)
[2017-03-13] MEDS: CHOLECALCIFEROL (VITAMIN D3) 1,000 UNIT TABLET PO SCH (08:45)
[2017-03-13] MEDS: CALCIUM CARB/VIT D3 500/200 TABLET PO SCH (08:45)
[2017-03-13] MEDS: ASCORBIC ACID 500 MG TABLET PO SCH (08:45)
[2017-03-13] MEDS: QUEtiapine 50 MG TABLET. PO SCH ×2 (14:00→20:20)
[2017-03-13 16:19] VITALS: BP 106/57
--- NOTE | 2017-03-13 20:08 | PDOC ---
Exam Note: Brenden Note: Please also refer to the separate dictated note~for this date of service dictated separately.~Patient seen individually. Discussed the patient with Nursing staff reviewed the chart.~Reviewed interim history and current functioning. Reviewed vital signs,~Labs/ Radiology~and current medications noted below. Continue current treatment with the changes noted in the dictated addendum note Assessment: Vital Signs: Vital Signs Date Time Temp Pulse Resp B/P (MAP) Pulse Ox O2 Delivery O2 Flow Rate FiO2 03/13/17 16:19 98.1 61 20 106/57 (73) 98 03/12/17 09:16 Room Air I&O Intake and Output 03/13/17 07:00 Intake Total 920 ml Balance 920 ml Intake Oral 920 ml # Bowel Movements 2 Current Medications: Meds: Current Medications Acetaminophen (Tylenol) 650 mg PRN Q6HRS PRN PO PAIN / TEMP; Start 03/07/17 at 20:15; Stop 03/07/17 at 22:01; Status DC Acetaminophen (Tylenol) 650 mg PRN Q6HRS PRN PO PAIN / TEMP; Start 03/07/17 at 22:00 Multi-Ingredient Ointment (Analgesic [place]) 1 pillo PRN QID PRN TP MUSCLE PAIN; Start 03/07/17 at 22:00 Al Hydroxide/Mg Hydroxide (Mylanta Plus Xs) 15 ml PRN AFTMEALHC PRN PO DYSPEPSIA; Start 03/07/17 at 22:00 Magnesium Hydroxide (Milk Of Magnesia) 2,400 mg PRN QHS PRN PO CONSTIPATION; Start 03/07/17 at 22:00 Olanzapine (ZyPREXA ZYDIS) 2.5 mg PRN Q2HR PRN PO PSYCHOSIS Last administered on 03/12/17at 15:44; Start 03/07/17 at 22:15 Quetiapine Fumarate (SEROquel) 25 mg TID PO Last administered on 03/09/17at 13: 15; Start 03/08/17 at 09:00; Stop 03/09/17 at 18:21; Status DC Sertraline HCl (Zoloft) 50 mg DAILY PO Last administered on 03/13/17at 07:43; Start 03/08/17 at 09:00 Acetaminophen (Tylenol) 325 mg PRN Q6HRS PRN PO PAIN / TEMP; Start 03/08/17 at 06:00; Stop 03/10/17 at 14:41; Status DC Amlodipine Besylate (Norvasc) 5 mg DAILY PO Last administered on 03/13/17at 07: 44; Start 03/08/17 at 09:00 Cyanocobalamin (Vitamin B-12) 1,000 mcg QMONTH IM ; Start 03/08/17 at 09:00; Stop 03/08/17 at 11:44; Status DC Levothyroxine Sodium (Synthroid) 150 mcg DAILY06 PO Last administered on at 06:28; Start 03/08/17 at 07:30 Metoprolol Succinate (Toprol Xl) 50 mg DAILY PO Last administered on 03/13/17at 07:44; Start 03/08/17 at 09:00 Alendronate Sodium (Fosamax) 70 mg Q7D PO Last administered on 03/09/17at 06:32 ; Start 03/09/17 at 06:00 Ascorbic Acid (Vitamin C) 1,000 mg DAILY PO Last administered on 03/13/17at 08: 45; Start 03/08/17 at 09:00 Calcium/Vitamin D (Oscal D 500mg/ 200uts) 1 tab DAILY PO Last administered on at 08:45; Start 03/08/17 at 09:00 Vitamin D (Vitamin D3) 2,000 unit DAILY PO Last administered on 03/13/17at 08:45 ; Start 03/08/17 at 09:00 Loperamide HCl (Imodium) 4 mg PRN DAILY PRN PO LOOSE STOOL; Start 03/08/17 at 07:30 Memantine (Namenda) 10 mg BID PO Last administered on 03/13/17at 07:43; Start at 09:00 Non-Formulary Medication 1 ml PRN TID PRN TD ANXIETY / AGITATION; Start at 06:00; Stop 03/08/17 at 16:34; Status DC Donepezil HCl (Aricept) 23 mg QHS PO Last administered on 03/12/17at 20:28; Start 03/08/17 at 21:00 Cyanocobalamin (Vitamin B-12) 1,000 mcg QMONTH IM ; Start 03/17/17 at 09:00 Quetiapine Fumarate (SEROquel) 37.5 mg TID PO Last administered on 03/13/17at 13 :14; Start 03/09/17 at 21:00; Stop 03/13/17 at 13:55; Status DC Hydroxyzine HCl (Atarax) 25 mg PRN TID PRN PO ANXIETY / AGITATION Last administered on 03/12/17at 15:44; Start 03/11/17 at 07:45 Lorazepam (Ativan) 0.25 mg PRN Q2HR PRN TP ANXIETY / AGITATION; Start 03/11/17 at 07:45 Valproic Acid (Depakene) 125 mg BIDWMEALS PEG Last administered on 03/13/17at 16 :46; Start 03/12/17 at 08:00 Quetiapine Fumarate (SEROquel) 50 mg TID PO ; Start 03/13/17 at 14:00 Mirtazapine (Remeron) 7.5 mg QHS PO ; Start 03/13/17 at 21:00 Active Scripts Active Reported Loperamide (Loperamide Hcl) 2 Mg Tablet 4 Mg PO PRN DAILY PRN Acetaminophen 325 Mg Tablet 325 Mg PO PRN Q6HRS PRN [Abh Cream] 1 Ml TD PRN TID PRN Vitamin D3 (Cholecalciferol (Vitamin D3)) 2,000 Unit Capsule 2,000 Unit PO DAILY Vitamin C (Ascorbic Acid) 1,000 Mg Tablet 1,000 Mg PO DAILY Zoloft (Sertraline Hcl) 50 Mg Tablet 50 Mg PO DAILY Seroquel (Quetiapine Fumarate) 25 Mg Tablet 25 Mg PO TID Namenda Xr (Memantine Hcl) 28 Mg Cap.spr.24 28 Mg PO DAILY Toprol Xl (Metoprolol Succinate) 50 Mg Tab.er.24h 50 Mg PO DAILY Levothyroxine Sodium 150 Mcg Tablet 150 Mcg PO DAILYAC Zyprexa Zydis (Olanzapine) 5 Mg Tab.rapdis 2.5 Mg PO PRN Q2HR PRN MDD 7.5 [Donepezil] 23 Mg PO QHS Cyanocobalamin Injection (Cyanocobalamin (Vitamin B-12)) 1,000 Mcg/1 Ml Vial 1, 000 Mcg IJ QMONTH Citracal + D Er Tablet (Calcium Carb & Cit/Vitamin D3) 1 Each Tablet.er 1 Each PO DAILY Norvasc (Amlodipine Besylate) 5 Mg Tablet 5 Mg PO DAILY Alendronate Sodium 70 Mg Tablet 70 Mg PO QFR I have reviewed the current psychotropics carefully including drug interactions. Risk benefit ratio favors no change other than as noted in my dictated progress note. Diagnosis: Problems: (1) Anxiety disorder (2) Impulse control disorder (3) Dementia, vascular, with depression (4) Dementia, vascular, with delusions (5) Dementia in Alzheimer's disease with depression (6) Dementia in Alzheimer's disease with delusions (7) Suicidal ideation (8) Dementia with behavioral disturbance FALGUNI RUBIO MD Mar 13, 2017 20:08
[2017-03-13] MEDS: DONEPEZIL 23 MG TABLET PO SCH (20:20)
[2017-03-13] MEDS: MIRTAZAPINE 7.5 MG TABLET. PO SCH (20:22)
--- NOTE | 2017-03-14 03:06 | PN ---
DATE: 03/11/2017 SUBJECTIVE: This note covers elements not covered in my initial note, 03/11, seen individually evening of 03/11. Per nursing report, the patient had a "bad night." She was agitated, aggressive, disruptive, had to be in a hold. As nursing staff tried to contain her, she was screaming. She woke up around 10:00 a.m. Quite labile in her mood, confused. Nursing staff had called me as an emergency. We did add hydroxyzine p.r.n. for anxiety. REVIEW OF SYSTEMS: No CV, , pulmonary, eye, ENT system symptoms on review. RELIABILITY: Poor. MENTAL STATUS EXAMINATION: Oriented to herself. Insight, judgment, recent and remote memory, attention, concentration, fund of knowledge poor, consistent with her diagnosis mentioned in my initial note. IMPRESSION: Major neurocognitive disorder, Alzheimer's, vascular with depression, delusion, behavioral disturbance. Rest unchanged. PLAN: Start Depakote Sprinkles 125 mg b.i.d. Check CBC, CMP, valproic acid level in 3 days. Continue rest of the psychotropics unchanged. MAN Minna RUBIO MD DR: JAMEE/rachael JOB#: [id number] / [id number]
--- NOTE | 2017-03-14 05:57 | PN ---
DATE: 03/12/2017 This late entry 03/12/2017 covers elements not covered in my initial note 03/12/2017, met with the patient evening of 03/12/2017. The patient was combative with ADLs on night filler, was hitting, scratching biting, combative with day staff as she was being escorted to the shower, calmer at breakfast: Major outburst after lunch. PRNs given. She was placed in the West hallway in a quiet area. She is quiet and calm for dinner. Slept 5 hours in quiet room. REVIEW OF SYSTEMS: No CV, , pulmonary, eye, ENT system symptoms on review. Reliability poor. MENTAL STATUS EXAM: Oriented to herself. Insight, judgment, recent and remote memory, attention, concentration, fund of knowledge poor, consistent with her diagnosis mentioned in my initial note. IMPRESSION: Major neurocognitive disorder, Alzheimer, vascular with depression, delusion, behavioral disturbance. PLAN: Continue psychotropics mentioned in my initial note, Aricept, Namenda, Seroquel, Zoloft, Ativan p.r.n., Depakene is 125 mg twice a day. Check CBC, CMP, valproic acid level on 03/15/2017. Adjust to reach a therapeutic level thereafter. Seroquel is 37.5 mg t.i.d. given her marked mood lability. We will increase it to 50 mg t.i.d. to help with anxiety, irritability psychotic symptoms and aggression. FALGUNI RUBIO MD DR: JAMEE/rachael JOB#: [id number] / [id number]
[2017-03-14 06:03] VITALS: BP 161/93
[2017-03-14] MEDS: LEVOTHYROXINE 150 MCG TABLET PO SCH (06:09)
[2017-03-14] MEDS: SERTRALINE 50 MG TABLET. PO SCH (07:32)
[2017-03-14] MEDS: VALPROATE ACID 250 MG/5 ML ORAL SOLUTION PEG SCH ×2 (07:32→16:48)
[2017-03-14] MEDS: METOPROLOL SUCC 24HR ER 50 MG TAB.ER.24H. PO SCH (07:32)
[2017-03-14] MEDS: ASCORBIC ACID 500 MG TABLET PO SCH (07:33)
[2017-03-14] MEDS: amLODIPine BESYLATE 5 MG TABLET PO SCH (07:33)
[2017-03-14] MEDS: QUEtiapine 50 MG TABLET. PO SCH ×3 (07:33→21:04)
[2017-03-14] MEDS: MEMANTINE 10 MG TABLET. PO SCH ×2 (07:33→21:02)
[2017-03-14] MEDS: CALCIUM CARB/VIT D3 500/200 TABLET PO SCH (07:34)
[2017-03-14] MEDS: CHOLECALCIFEROL (VITAMIN D3) 1,000 UNIT TABLET PO SCH (07:34)
[2017-03-14] MEDS: hydrOXYzine HCL 25 MG TABLET PO PRN ×2 (09:23→16:10)
[2017-03-14 15:54] VITALS: BP 188/75
--- NOTE | 2017-03-14 19:59 | PDOC ---
Exam Note: Brenden Note: Please also refer to the separate dictated note~for this date of service dictated separately.~Patient seen individually. Discussed the patient with Nursing staff reviewed the chart.~Reviewed interim history and current functioning. Reviewed vital signs,~Labs/ Radiology~and current medications noted below. Continue current treatment with the changes noted in the dictated addendum note Assessment: Vital Signs: Vital Signs Date Time Temp Pulse Resp B/P (MAP) Pulse Ox O2 Delivery O2 Flow Rate FiO2 03/14/17 15:54 97.1 64 18 188/75 (112) 97 Room Air I&O Intake and Output 03/14/17 07:00 Intake Total 1280 ml Balance 1280 ml Intake Oral 1280 ml # Voids 1 Current Medications: Meds: Current Medications Acetaminophen (Tylenol) 650 mg PRN Q6HRS PRN PO PAIN / TEMP; Start 03/07/17 at 20:15; Stop 03/07/17 at 22:01; Status DC Acetaminophen (Tylenol) 650 mg PRN Q6HRS PRN PO PAIN / TEMP; Start 03/07/17 at 22:00 Multi-Ingredient Ointment (Analgesic [place]) 1 pillo PRN QID PRN TP MUSCLE PAIN; Start 03/07/17 at 22:00 Al Hydroxide/Mg Hydroxide (Mylanta Plus Xs) 15 ml PRN AFTMEALHC PRN PO DYSPEPSIA; Start 03/07/17 at 22:00 Magnesium Hydroxide (Milk Of Magnesia) 2,400 mg PRN QHS PRN PO CONSTIPATION; Start 03/07/17 at 22:00 Olanzapine (ZyPREXA ZYDIS) 2.5 mg PRN Q2HR PRN PO PSYCHOSIS Last administered on 03/14/17at 16:10; Start 03/07/17 at 22:15 Quetiapine Fumarate (SEROquel) 25 mg TID PO Last administered on 03/09/17at 13: 15; Start 03/08/17 at 09:00; Stop 03/09/17 at 18:21; Status DC Sertraline HCl (Zoloft) 50 mg DAILY PO Last administered on 03/14/17at 07:32; Start 03/08/17 at 09:00 Acetaminophen (Tylenol) 325 mg PRN Q6HRS PRN PO PAIN / TEMP; Start 03/08/17 at 06:00; Stop 03/10/17 at 14:41; Status DC Amlodipine Besylate (Norvasc) 5 mg DAILY PO Last administered on 03/14/17at 07: 33; Start 03/08/17 at 09:00 Cyanocobalamin (Vitamin B-12) 1,000 mcg QMONTH IM ; Start 03/08/17 at 09:00; Stop 03/08/17 at 11:44; Status DC Levothyroxine Sodium (Synthroid) 150 mcg DAILY06 PO Last administered on at 06:09; Start 03/08/17 at 07:30 Metoprolol Succinate (Toprol Xl) 50 mg DAILY PO Last administered on 03/14/17at 07:32; Start 03/08/17 at 09:00 Alendronate Sodium (Fosamax) 70 mg Q7D PO Last administered on 03/09/17at 06:32 ; Start 03/09/17 at 06:00 Ascorbic Acid (Vitamin C) 1,000 mg DAILY PO Last administered on 03/14/17at 07: 33; Start 03/08/17 at 09:00 Calcium/Vitamin D (Oscal D 500mg/ 200uts) 1 tab DAILY PO Last administered on at 07:34; Start 03/08/17 at 09:00 Vitamin D (Vitamin D3) 2,000 unit DAILY PO Last administered on 03/14/17at 07:34 ; Start 03/08/17 at 09:00 Loperamide HCl (Imodium) 4 mg PRN DAILY PRN PO LOOSE STOOL; Start 03/08/17 at 07:30 Memantine (Namenda) 10 mg BID PO Last administered on 03/14/17at 07:33; Start at 09:00 Non-Formulary Medication 1 ml PRN TID PRN TD ANXIETY / AGITATION; Start at 06:00; Stop 03/08/17 at 16:34; Status DC Donepezil HCl (Aricept) 23 mg QHS PO Last administered on 03/13/17at 20:20; Start 03/08/17 at 21:00 Cyanocobalamin (Vitamin B-12) 1,000 mcg QMONTH IM ; Start 03/17/17 at 09:00 Quetiapine Fumarate (SEROquel) 37.5 mg TID PO Last administered on 03/13/17at 13 :14; Start 03/09/17 at 21:00; Stop 03/13/17 at 13:55; Status DC Hydroxyzine HCl (Atarax) 25 mg PRN TID PRN PO ANXIETY / AGITATION Last administered on 03/14/17at 16:10; Start 03/11/17 at 07:45 Lorazepam (Ativan) 0.25 mg PRN Q2HR PRN TP ANXIETY / AGITATION; Start 03/11/17 at 07:45 Valproic Acid (Depakene) 125 mg BIDWMEALS PEG Last administered on 03/14/17at 16 :48; Start 03/12/17 at 08:00 Quetiapine Fumarate (SEROquel) 50 mg TID PO Last administered on 03/14/17at 14: 55; Start 03/13/17 at 14:00; Stop 03/14/17 at 17:41; Status DC Mirtazapine (Remeron) 7.5 mg QHS PO Last administered on 03/13/17at 20:22; Start 03/13/17 at 21:00 Quetiapine Fumarate (SEROquel) 62.5 mg TID PO ; Start 03/14/17 at 21:00 Active Scripts Active Reported Loperamide (Loperamide Hcl) 2 Mg Tablet 4 Mg PO PRN DAILY PRN Acetaminophen 325 Mg Tablet 325 Mg PO PRN Q6HRS PRN [Abh Cream] 1 Ml TD PRN TID PRN Vitamin D3 (Cholecalciferol (Vitamin D3)) 2,000 Unit Capsule 2,000 Unit PO DAILY Vitamin C (Ascorbic Acid) 1,000 Mg Tablet 1,000 Mg PO DAILY Zoloft (Sertraline Hcl) 50 Mg Tablet 50 Mg PO DAILY Seroquel (Quetiapine Fumarate) 25 Mg Tablet 25 Mg PO TID Namenda Xr (Memantine Hcl) 28 Mg Cap.spr.24 28 Mg PO DAILY Toprol Xl (Metoprolol Succinate) 50 Mg Tab.er.24h 50 Mg PO DAILY Levothyroxine Sodium 150 Mcg Tablet 150 Mcg PO DAILYAC Zyprexa Zydis (Olanzapine) 5 Mg Tab.rapdis 2.5 Mg PO PRN Q2HR PRN MDD 7.5 [Donepezil] 23 Mg PO QHS Cyanocobalamin Injection (Cyanocobalamin (Vitamin B-12)) 1,000 Mcg/1 Ml Vial 1, 000 Mcg IJ QMONTH Citracal + D Er Tablet (Calcium Carb & Cit/Vitamin D3) 1 Each Tablet.er 1 Each PO DAILY Norvasc (Amlodipine Besylate) 5 Mg Tablet 5 Mg PO DAILY Alendronate Sodium 70 Mg Tablet 70 Mg PO QFR I have reviewed the current psychotropics carefully including drug interactions. Risk benefit ratio favors no change other than as noted in my dictated progress note. Diagnosis: Problems: (1) Anxiety disorder (2) Impulse control disorder (3) Dementia, vascular, with depression (4) Dementia, vascular, with delusions (5) Dementia in Alzheimer's disease with depression (6) Dementia in Alzheimer's disease with delusions (7) Suicidal ideation (8) Dementia with behavioral disturbance FALGUNI RUBIO MD Mar 14, 2017 19:59
[2017-03-14] MEDS: MIRTAZAPINE 7.5 MG TABLET. PO SCH (21:04)
[2017-03-14] MEDS: DONEPEZIL 23 MG TABLET PO SCH (21:04)
--- NOTE | 2017-03-15 03:26 | PN ---
DATE: 03/13/2017 PSYCHIATRIC PROGRESS NOTE This is a late entry on 03/13/2017, covers elements, not covered in my initial note 03/13/2017, met with the patient evening of 03/13/2017. The patient slept 4-3/4 hours previous evening. She has had a better day on 03/13/2017, less agitated. No PRNs noted. Takes her medications and some pudding, wandering,1 she has moments of clarity, smiling as I met with her. Otherwise, quite paranoid still. REVIEW OF SYSTEMS: No CV, , pulmonary, eye, ENT system symptoms on review. Reliability poor. MENTAL STATUS EXAM: Oriented to herself. Insight, judgment, recent and remote memory, attention, concentration, fund of knowledge poor, consistent with her diagnosis mentioned in my initial note. IMPRESSION: Major neurocognitive disorder, Alzheimer vascular, depression, delusion, behavioral disturbance. Rest unchanged. PLAN: Start Remeron 7.5 mg at bedtime, continue. Rest unchanged per the initial note. MAN Minna RUBIO MD DR: JAMEE/rachael JOB#: [id number] / [id number]
[2017-03-15 05:53] VITALS: BP 161/83
[2017-03-15] MEDS: LEVOTHYROXINE 150 MCG TABLET PO SCH (06:10)
[2017-03-15 07:42] LABS: BASO # 0.1 x10^3/uL (0.0-0.2); BASO % 1 % (0-3); EOS # 0.1 x10^3/uL (0.0-0.7); EOS % 1 % (0-3); HEMOGLOBIN 12.8 g/dL (12.0-15.5); LYMPH # 1.8 x10^3/uL (1.0-4.8); LYMPH % 27 % (24-48); MEAN CORPUSCULAR HEMOGLOBIN 35 pg (25-35); MEAN CORPUSCULAR HGB CONC 34 g/dL (31-37); MEAN CORPUSCULAR VOLUME 104 fL (79-100); MONO # 0.6 x10^3/uL (0.0-1.1); MONO % 9 % (0-9); NEUT # 4.3 x10^3uL (1.8-7.7); NEUT % 62 % (31-73); PLATELET COUNT 174 x10^3/uL (140-400); RED BLOOD COUNT 3.68 x10^6/uL (3.50-5.40); RED CELL DISTRIBUTION WIDTH 13.2 % (11.5-14.5); WHITE BLOOD COUNT 6.9 x10^3/uL (4.0-11.0)
[2017-03-15] MEDS: VALPROATE ACID 250 MG/5 ML ORAL SOLUTION PEG SCH (07:57)
[2017-03-15] MEDS: CHOLECALCIFEROL (VITAMIN D3) 1,000 UNIT TABLET PO SCH (07:58)
[2017-03-15] MEDS: SERTRALINE 50 MG TABLET. PO SCH (07:58)
[2017-03-15] MEDS: QUEtiapine 50 MG TABLET. PO SCH ×3 (07:58→20:44)
[2017-03-15] MEDS: ASCORBIC ACID 500 MG TABLET PO SCH (07:58)
[2017-03-15 07:59] LABS: ALBUMIN 3.3 g/dL (3.4-5.0); ALBUMIN/GLOBULIN RATIO 0.8 (1.0-1.7); ALK PHOS 77 U/L (46-116); ALT (SGPT) 59 U/L (14-59); ANION GAP 8 (6-14); AST (SGOT) 66 U/L (15-37); BLOOD UREA NITROGEN 21 mg/dL (7-20); BUN/CREATININE RATIO 30 (6-20); CALCIUM 8.8 mg/dL (8.5-10.1); CARBON DIOXIDE 30 mmol/L (21-32); CHLORIDE 107 mmol/L (98-107); CREATININE 0.7 mg/dL (0.6-1.0); GFR 79.9; GLUCOSE 85 mg/dL (70-99); SODIUM 145 mmol/L (136-145); TOTAL BILIRUBIN 0.4 mg/dL (0.2-1.0); TOTAL PROTEIN 7.2 g/dL (6.4-8.2)
[2017-03-15] MEDS: MEMANTINE 10 MG TABLET. PO SCH ×2 (07:59→20:45)
[2017-03-15] MEDS: amLODIPine BESYLATE 5 MG TABLET PO SCH (07:59)
[2017-03-15] MEDS: CALCIUM CARB/VIT D3 500/200 TABLET PO SCH (07:59)
[2017-03-15] MEDS: METOPROLOL SUCC 24HR ER 50 MG TAB.ER.24H. PO SCH (07:59)
[2017-03-15 08:43] LABS: VAL ACID 26 mcg/mL (50-100)
[2017-03-15 15:57] VITALS: BP 111/62
[2017-03-15] MEDS: VALPROATE ACID 250 MG/5 ML ORAL SOLUTION PO SCH ×2 (17:14→20:57)
--- NOTE | 2017-03-15 20:15 | PDOC ---
Exam Note: Brenden Note: Please also refer to the separate dictated note~for this date of service dictated separately.~Patient seen individually. Discussed the patient with Nursing staff reviewed the chart.~Reviewed interim history and current functioning. Reviewed vital signs,~Labs/ Radiology~and current medications noted below. Continue current treatment with the changes noted in the dictated addendum note Assessment: Vital Signs: Vital Signs Date Time Temp Pulse Resp B/P (MAP) Pulse Ox O2 Delivery O2 Flow Rate FiO2 03/15/17 15:57 97.8 67 20 111/62 (78) 97 Room Air I&O Intake and Output 03/15/17 07:00 Intake Total 1080 ml Balance 1080 ml Intake Oral 1080 ml # Bowel Movements 1 Labs: Laboratory Tests Test 03/15/17 07:21 White Blood Count 6.9 x10^3/uL (4.0-11.0) Red Blood Count 3.68 x10^6/uL (3.50-5.40) Hemoglobin 12.8 g/dL (12.0-15.5) Hematocrit 38.0 % (36.0-47.0) Mean Corpuscular Volume 104 fL (79-100) H Mean Corpuscular Hemoglobin 35 pg (25-35) Mean Corpuscular Hemoglobin Concent 34 g/dL (31-37) Red Cell Distribution Width 13.2 % (11.5-14.5) Platelet Count 174 x10^3/uL (140-400) Neutrophils (%) (Auto) 62 % (31-73) Lymphocytes (%) (Auto) 27 % (24-48) Monocytes (%) (Auto) 9 % (0-9) Eosinophils (%) (Auto) 1 % (0-3) Basophils (%) (Auto) 1 % (0-3) Neutrophils # (Auto) 4.3 x10^3uL (1.8-7.7) Lymphocytes # (Auto) 1.8 x10^3/uL (1.0-4.8) Monocytes # (Auto) 0.6 x10^3/uL (0.0-1.1) Eosinophils # (Auto) 0.1 x10^3/uL (0.0-0.7) Basophils # (Auto) 0.1 x10^3/uL (0.0-0.2) Sodium Level 145 mmol/L (136-145) Potassium Level 4.0 mmol/L (3.5-5.1) Chloride Level 107 mmol/L (98-107) Carbon Dioxide Level 30 mmol/L (21-32) Anion Gap 8 (6-14) Blood Urea Nitrogen 21 mg/dL (7-20) H Creatinine 0.7 mg/dL (0.6-1.0) Estimated GFR (Cockcroft-Gault) 79.9 BUN/Creatinine Ratio 30 (6-20) H Glucose Level 85 mg/dL (70-99) Calcium Level 8.8 mg/dL (8.5-10.1) Total Bilirubin 0.4 mg/dL (0.2-1.0) Aspartate Amino Transferase (AST) 66 U/L (15-37) H Alanine Aminotransferase (ALT) 59 U/L (14-59) Alkaline Phosphatase 77 U/L (46-116) Total Protein 7.2 g/dL (6.4-8.2) Albumin 3.3 g/dL (3.4-5.0) L Albumin/Globulin Ratio 0.8 (1.0-1.7) L Valproic Acid Level 26 mcg/mL (50-100) L Valproic Acid Last Dose Date 03/14/17 Valproic Acid Last Dose Time 2100 Current Medications: Meds: Current Medications Acetaminophen (Tylenol) 650 mg PRN Q6HRS PRN PO PAIN / TEMP; Start 03/07/17 at 20:15; Stop 03/07/17 at 22:01; Status DC Acetaminophen (Tylenol) 650 mg PRN Q6HRS PRN PO PAIN / TEMP; Start 03/07/17 at 22:00 Multi-Ingredient Ointment (Analgesic [place]) 1 pillo PRN QID PRN TP MUSCLE PAIN; Start 03/07/17 at 22:00 Al Hydroxide/Mg Hydroxide (Mylanta Plus Xs) 15 ml PRN AFTMEALHC PRN PO DYSPEPSIA; Start 03/07/17 at 22:00 Magnesium Hydroxide (Milk Of Magnesia) 2,400 mg PRN QHS PRN PO CONSTIPATION; Start 03/07/17 at 22:00 Olanzapine (ZyPREXA ZYDIS) 2.5 mg PRN Q2HR PRN PO PSYCHOSIS Last administered on 03/14/17at 16:10; Start 03/07/17 at 22:15 Quetiapine Fumarate (SEROquel) 25 mg TID PO Last administered on 03/09/17at 13: 15; Start 03/08/17 at 09:00; Stop 03/09/17 at 18:21; Status DC Sertraline HCl (Zoloft) 50 mg DAILY PO Last administered on 03/15/17at 07:58; Start 03/08/17 at 09:00 Acetaminophen (Tylenol) 325 mg PRN Q6HRS PRN PO PAIN / TEMP; Start 03/08/17 at 06:00; Stop 03/10/17 at 14:41; Status DC Amlodipine Besylate (Norvasc) 5 mg DAILY PO Last administered on 03/15/17at 07: 59; Start 03/08/17 at 09:00 Cyanocobalamin (Vitamin B-12) 1,000 mcg QMONTH IM ; Start 03/08/17 at 09:00; Stop 03/08/17 at 11:44; Status DC Levothyroxine Sodium (Synthroid) 150 mcg DAILY06 PO Last administered on at 06:10; Start 03/08/17 at 07:30 Metoprolol Succinate (Toprol Xl) 50 mg DAILY PO Last administered on 03/15/17at 07:59; Start 03/08/17 at 09:00 Alendronate Sodium (Fosamax) 70 mg Q7D PO Last administered on 03/09/17at 06:32 ; Start 03/09/17 at 06:00 Ascorbic Acid (Vitamin C) 1,000 mg DAILY PO Last administered on 03/15/17at 07: 58; Start 03/08/17 at 09:00 Calcium/Vitamin D (Oscal D 500mg/ 200uts) 1 tab DAILY PO Last administered on at 07:59; Start 03/08/17 at 09:00 Vitamin D (Vitamin D3) 2,000 unit DAILY PO Last administered on 03/15/17at 07:58 ; Start 03/08/17 at 09:00 Loperamide HCl (Imodium) 4 mg PRN DAILY PRN PO LOOSE STOOL; Start 03/08/17 at 07:30 Memantine (Namenda) 10 mg BID PO Last administered on 03/15/17at 07:59; Start at 09:00 Non-Formulary Medication 1 ml PRN TID PRN TD ANXIETY / AGITATION; Start at 06:00; Stop 03/08/17 at 16:34; Status DC Donepezil HCl (Aricept) 23 mg QHS PO Last administered on 03/14/17at 21:04; Start 03/08/17 at 21:00 Cyanocobalamin (Vitamin B-12) 1,000 mcg QMONTH IM ; Start 03/17/17 at 09:00 Quetiapine Fumarate (SEROquel) 37.5 mg TID PO Last administered on 03/13/17at 13 :14; Start 03/09/17 at 21:00; Stop 03/13/17 at 13:55; Status DC Hydroxyzine HCl (Atarax) 25 mg PRN TID PRN PO ANXIETY / AGITATION Last administered on 03/14/17at 16:10; Start 03/11/17 at 07:45 Lorazepam (Ativan) 0.25 mg PRN Q2HR PRN TP ANXIETY / AGITATION; Start 03/11/17 at 07:45 Valproic Acid (Depakene) 125 mg BIDWMEALS PEG Last administered on 03/15/17at 07 :57; Start 03/12/17 at 08:00; Stop 03/15/17 at 11:10; Status DC Quetiapine Fumarate (SEROquel) 50 mg TID PO Last administered on 03/14/17at 14: 55; Start 03/13/17 at 14:00; Stop 03/14/17 at 17:41; Status DC Mirtazapine (Remeron) 7.5 mg QHS PO Last administered on 03/14/17at 21:04; Start 03/13/17 at 21:00 Quetiapine Fumarate (SEROquel) 62.5 mg TID PO Last administered on 03/15/17at 13 :56; Start 03/14/17 at 21:00 Valproic Acid (Depakene) 125 mg TID@0900,1700,2100 PO Last administered on 03/15at 17:14; Start 03/15/17 at 17:00 Active Scripts Active Reported Loperamide (Loperamide Hcl) 2 Mg Tablet 4 Mg PO PRN DAILY PRN Acetaminophen 325 Mg Tablet 325 Mg PO PRN Q6HRS PRN [Abh Cream] 1 Ml TD PRN TID PRN Vitamin D3 (Cholecalciferol (Vitamin D3)) 2,000 Unit Capsule 2,000 Unit PO DAILY Vitamin C (Ascorbic Acid) 1,000 Mg Tablet 1,000 Mg PO DAILY Zoloft (Sertraline Hcl) 50 Mg Tablet 50 Mg PO DAILY Seroquel (Quetiapine Fumarate) 25 Mg Tablet 25 Mg PO TID Namenda Xr (Memantine Hcl) 28 Mg Cap.spr.24 28 Mg PO DAILY Toprol Xl (Metoprolol Succinate) 50 Mg Tab.er.24h 50 Mg PO DAILY Levothyroxine Sodium 150 Mcg Tablet 150 Mcg PO DAILYAC Zyprexa Zydis (Olanzapine) 5 Mg Tab.rapdis 2.5 Mg PO PRN Q2HR PRN MDD 7.5 [Donepezil] 23 Mg PO QHS Cyanocobalamin Injection (Cyanocobalamin (Vitamin B-12)) 1,000 Mcg/1 Ml Vial 1, 000 Mcg IJ QMONTH Citracal + D Er Tablet (Calcium Carb & Cit/Vitamin D3) 1 Each Tablet.er 1 Each PO DAILY Norvasc (Amlodipine Besylate) 5 Mg Tablet 5 Mg PO DAILY Alendronate Sodium 70 Mg Tablet 70 Mg PO QFR I have reviewed the current psychotropics carefully including drug interactions. Risk benefit ratio favors no change other than as noted in my dictated progress note. Diagnosis: Problems: (1) Anxiety disorder (2) Impulse control disorder (3) Dementia, vascular, with depression (4) Dementia, vascular, with delusions (5) Dementia in Alzheimer's disease with depression (6) Dementia in Alzheimer's disease with delusions (7) Suicidal ideation (8) Dementia with behavioral disturbance FALGUNI RUBIO MD Mar 15, 2017 20:15
[2017-03-15] MEDS: MIRTAZAPINE 7.5 MG TABLET. PO SCH (20:43)
[2017-03-15] MEDS: DONEPEZIL 23 MG TABLET PO SCH (20:45)
[2017-03-16 05:46] VITALS: BP 143/67
[2017-03-16] MEDS: ALENDRONATE SODIUM 35 MG TABLET PO SCH (05:54)
[2017-03-16] MEDS: LEVOTHYROXINE 150 MCG TABLET PO SCH (05:55)
[2017-03-16] MEDS: CALCIUM CARB/VIT D3 500/200 TABLET PO SCH (07:27)
[2017-03-16] MEDS: VALPROATE ACID 250 MG/5 ML ORAL SOLUTION PO SCH ×3 (07:27→19:45)
[2017-03-16] MEDS: amLODIPine BESYLATE 5 MG TABLET PO SCH (07:27)
[2017-03-16] MEDS: SERTRALINE 50 MG TABLET. PO SCH (07:27)
[2017-03-16] MEDS: ASCORBIC ACID 500 MG TABLET PO SCH (07:27)
[2017-03-16] MEDS: METOPROLOL SUCC 24HR ER 50 MG TAB.ER.24H. PO SCH (07:28)
[2017-03-16] MEDS: QUEtiapine 50 MG TABLET. PO SCH ×3 (07:28→19:42)
[2017-03-16] MEDS: CHOLECALCIFEROL (VITAMIN D3) 1,000 UNIT TABLET PO SCH (07:28)
[2017-03-16] MEDS: MEMANTINE 10 MG TABLET. PO SCH ×2 (07:28→19:41)
[2017-03-16 16:12] VITALS: BP 110/51
[2017-03-16] MEDS: MIRTAZAPINE 7.5 MG TABLET. PO SCH (19:41)
[2017-03-16] MEDS: DONEPEZIL 23 MG TABLET PO SCH (19:42)
--- NOTE | 2017-03-16 20:11 | PDOC ---
Exam Note: Brenden Note: Please also refer to the separate dictated note~for this date of service dictated separately.~Patient seen individually. Discussed the patient with Nursing staff reviewed the chart.~Reviewed interim history and current functioning. Reviewed vital signs,~Labs/ Radiology~and current medications noted below. Continue current treatment with the changes noted in the dictated addendum note Assessment: Vital Signs: Vital Signs Date Time Temp Pulse Resp B/P (MAP) Pulse Ox O2 Delivery O2 Flow Rate FiO2 03/16/17 16:12 98.2 56 20 110/51 (70) 96 Room Air I&O Intake and Output 03/16/17 07:00 Intake Total 1280 ml Balance 1280 ml Intake Oral 1280 ml Current Medications: Meds: Current Medications Acetaminophen (Tylenol) 650 mg PRN Q6HRS PRN PO PAIN / TEMP; Start 03/07/17 at 20:15; Stop 03/07/17 at 22:01; Status DC Acetaminophen (Tylenol) 650 mg PRN Q6HRS PRN PO PAIN / TEMP; Start 03/07/17 at 22:00 Multi-Ingredient Ointment (Analgesic [place]) 1 pillo PRN QID PRN TP MUSCLE PAIN; Start 03/07/17 at 22:00 Al Hydroxide/Mg Hydroxide (Mylanta Plus Xs) 15 ml PRN AFTMEALHC PRN PO DYSPEPSIA; Start 03/07/17 at 22:00 Magnesium Hydroxide (Milk Of Magnesia) 2,400 mg PRN QHS PRN PO CONSTIPATION; Start 03/07/17 at 22:00 Olanzapine (ZyPREXA ZYDIS) 2.5 mg PRN Q2HR PRN PO PSYCHOSIS Last administered on 03/14/17at 16:10; Start 03/07/17 at 22:15 Quetiapine Fumarate (SEROquel) 25 mg TID PO Last administered on 03/09/17at 13: 15; Start 03/08/17 at 09:00; Stop 03/09/17 at 18:21; Status DC Sertraline HCl (Zoloft) 50 mg DAILY PO Last administered on 03/16/17at 07:27; Start 03/08/17 at 09:00 Acetaminophen (Tylenol) 325 mg PRN Q6HRS PRN PO PAIN / TEMP; Start 03/08/17 at 06:00; Stop 03/10/17 at 14:41; Status DC Amlodipine Besylate (Norvasc) 5 mg DAILY PO Last administered on 03/16/17at 07: 27; Start 03/08/17 at 09:00 Cyanocobalamin (Vitamin B-12) 1,000 mcg QMONTH IM ; Start 03/08/17 at 09:00; Stop 03/08/17 at 11:44; Status DC Levothyroxine Sodium (Synthroid) 150 mcg DAILY06 PO Last administered on at 05:55; Start 03/08/17 at 07:30 Metoprolol Succinate (Toprol Xl) 50 mg DAILY PO Last administered on 03/16/17at 07:28; Start 03/08/17 at 09:00 Alendronate Sodium (Fosamax) 70 mg Q7D PO Last administered on 03/16/17at 05:54 ; Start 03/09/17 at 06:00 Ascorbic Acid (Vitamin C) 1,000 mg DAILY PO Last administered on 03/16/17at 07: 27; Start 03/08/17 at 09:00 Calcium/Vitamin D (Oscal D 500mg/ 200uts) 1 tab DAILY PO Last administered on 07:27; Start 03/08/17 at 09:00 Vitamin D (Vitamin D3) 2,000 unit DAILY PO Last administered on 03/16/17at 07:28 ; Start 03/08/17 at 09:00 Loperamide HCl (Imodium) 4 mg PRN DAILY PRN PO LOOSE STOOL; Start 03/08/17 at 07:30 Memantine (Namenda) 10 mg BID PO Last administered on 03/16/17at 19:41; Start at 09:00 Non-Formulary Medication 1 ml PRN TID PRN TD ANXIETY / AGITATION; Start at 06:00; Stop 03/08/17 at 16:34; Status DC Donepezil HCl (Aricept) 23 mg QHS PO Last administered on 03/16/17at 19:42; Start 03/08/17 at 21:00 Cyanocobalamin (Vitamin B-12) 1,000 mcg QMONTH IM ; Start 03/17/17 at 09:00 Quetiapine Fumarate (SEROquel) 37.5 mg TID PO Last administered on 03/13/17at 13 :14; Start 03/09/17 at 21:00; Stop 03/13/17 at 13:55; Status DC Hydroxyzine HCl (Atarax) 25 mg PRN TID PRN PO ANXIETY / AGITATION Last administered on 03/14/17at 16:10; Start 03/11/17 at 07:45 Lorazepam (Ativan) 0.25 mg PRN Q2HR PRN TP ANXIETY / AGITATION; Start 03/11/17 at 07:45 Valproic Acid (Depakene) 125 mg BIDWMEALS PEG Last administered on 03/15/17at 07 :57; Start 03/12/17 at 08:00; Stop 03/15/17 at 11:10; Status DC Quetiapine Fumarate (SEROquel) 50 mg TID PO Last administered on 03/14/17at 14: 55; Start 03/13/17 at 14:00; Stop 03/14/17 at 17:41; Status DC Mirtazapine (Remeron) 7.5 mg QHS PO Last administered on 03/16/17at 19:41; Start 03/13/17 at 21:00 Quetiapine Fumarate (SEROquel) 62.5 mg TID PO Last administered on 03/16/17at 19 :42; Start 03/14/17 at 21:00 Valproic Acid (Depakene) 125 mg TID@0900,1700,2100 PO Last administered on 03/16at 19:45; Start 03/15/17 at 17:00 Active Scripts Active Reported Loperamide (Loperamide Hcl) 2 Mg Tablet 4 Mg PO PRN DAILY PRN Acetaminophen 325 Mg Tablet 325 Mg PO PRN Q6HRS PRN [Abh Cream] 1 Ml TD PRN TID PRN Vitamin D3 (Cholecalciferol (Vitamin D3)) 2,000 Unit Capsule 2,000 Unit PO DAILY Vitamin C (Ascorbic Acid) 1,000 Mg Tablet 1,000 Mg PO DAILY Zoloft (Sertraline Hcl) 50 Mg Tablet 50 Mg PO DAILY Seroquel (Quetiapine Fumarate) 25 Mg Tablet 25 Mg PO TID Namenda Xr (Memantine Hcl) 28 Mg Cap.spr.24 28 Mg PO DAILY Toprol Xl (Metoprolol Succinate) 50 Mg Tab.er.24h 50 Mg PO DAILY Levothyroxine Sodium 150 Mcg Tablet 150 Mcg PO DAILYAC Zyprexa Zydis (Olanzapine) 5 Mg Tab.rapdis 2.5 Mg PO PRN Q2HR PRN MDD 7.5 [Donepezil] 23 Mg PO QHS Cyanocobalamin Injection (Cyanocobalamin (Vitamin B-12)) 1,000 Mcg/1 Ml Vial 1, 000 Mcg IJ QMONTH Citracal + D Er Tablet (Calcium Carb & Cit/Vitamin D3) 1 Each Tablet.er 1 Each PO DAILY Norvasc (Amlodipine Besylate) 5 Mg Tablet 5 Mg PO DAILY Alendronate Sodium 70 Mg Tablet 70 Mg PO QFR I have reviewed the current psychotropics carefully including drug interactions. Risk benefit ratio favors no change other than as noted in my dictated progress note. Diagnosis: Problems: (1) Anxiety disorder (2) Impulse control disorder (3) Dementia, vascular, with depression (4) Dementia, vascular, with delusions (5) Dementia in Alzheimer's disease with depression (6) Dementia in Alzheimer's disease with delusions (7) Suicidal ideation (8) Dementia with behavioral disturbance FALGUNI RUBIO MD Mar 16, 2017 20:11
--- NOTE | 2017-03-17 03:20 | PN ---
DATE: 03/14/2017 This is a late entry for 03/14/2017 covers elements not covered in my initial note of 03/14/2017. SUBJECTIVE: I met with the patient in the evening of 03/14/2017. The patient slept 5 hours previous evenings. No PRNs were given on 03/13/2017, but on 03/14/2017, she was anxious, agitated, restless, somewhat delusional, received Atarax and Zyprexa at 09:00 a.m. and 04:00 p.m. Takes her medications crushed in pudding, exit seeking, anxious, shaking the door, handles, rattling the doors, was quite agitated during shower time. REVIEW OF SYSTEMS: No CV, , pulmonary, eye, ENT system symptoms on review. Reliability poor. MENTAL STATUS EXAM: Oriented to herself. Insight, judgment, recent and remote memory, attention, concentration, fund of knowledge poor, consistent with her diagnosis mentioned in my initial note. IMPRESSION: Major neurocognitive disorder, Alzheimer, vascular with depression, delusion, behavioral disturbance. Rest unchanged. PLAN: Seroquel is currently 50 mg t.i.d. We will increase it to 62.5 mg 3 times a day. Maintain rest of the psychotropics mentioned in my initial note for now. FALGUNI RUBIO MD DR: JAMEE/rachael JOB#: [id number] / [id number]
[2017-03-17] MEDS: LEVOTHYROXINE 150 MCG TABLET PO SCH (05:39)
[2017-03-17] MEDS: CALCIUM CARB/VIT D3 500/200 TABLET PO SCH (08:02)
[2017-03-17] MEDS: VALPROATE ACID 250 MG/5 ML ORAL SOLUTION PO SCH ×3 (08:02→19:31)
[2017-03-17] MEDS: CHOLECALCIFEROL (VITAMIN D3) 1,000 UNIT TABLET PO SCH (08:02)
[2017-03-17] MEDS: QUEtiapine 50 MG TABLET. PO SCH ×3 (08:03→19:32)
[2017-03-17] MEDS: SERTRALINE 50 MG TABLET. PO SCH (08:03)
[2017-03-17] MEDS: ASCORBIC ACID 500 MG TABLET PO SCH (08:03)
[2017-03-17] MEDS: MEMANTINE 10 MG TABLET. PO SCH ×2 (08:03→19:32)
[2017-03-17] MEDS: amLODIPine BESYLATE 5 MG TABLET PO SCH (08:04)
[2017-03-17] MEDS: METOPROLOL SUCC 24HR ER 50 MG TAB.ER.24H. PO SCH (08:04)
[2017-03-17] MEDS ORDERED: CYANOCOBALAMIN (VITAMIN B-12) 1,000 MCG/ML VIAL IM SCH (09:00)
--- NOTE | 2017-03-17 11:51 | PN ---
DATE: 03/15/2017 PSYCHIATRIC PROGRESS NOTE This late entry 03/15/2017 covers elements, not covered in my initial note of 03/15/2017. SUBJECTIVE: The patient was staffed at treatment team meeting with entire team morning of 03/15/2017, seen individually evening of 03/15/2017. She remains quite paranoid, suspicious at times, refused her Synthroid in the morning. At the treatment team meeting, reviewed her history, diagnosis, progress at some length, took meds whole in the morning, ate her breakfast, at times noncompliant. REVIEW OF SYSTEMS: No CV, , pulmonary, eye, ENT system symptoms on review. Reliability poor. MENTAL STATUS EXAM: Oriented to herself. Insight, judgment, recent and remote memory, attention, concentration, fund of knowledge poor, consistent with her diagnosis mentioned in my initial note. IMPRESSION: Major neurocognitive disorder, Alzheimer, vascular with depression, delusion, behavioral disturbance. Rest unchanged. PLAN: Continue current psychotropics. Increase Depakene from 125 mg b.i.d. to 125 mg 3 times a day. Check CBC, CMP, valproic acid level in 3 days. Continue rest unchanged. MAN Minna RUBIO MD DR: JAMEE/rachael JOB#: [id number] / [id number]
[2017-03-17 16:16] VITALS: BP 114/62
[2017-03-17] MEDS: DONEPEZIL 23 MG TABLET PO SCH (19:31)
[2017-03-17] MEDS: MIRTAZAPINE 7.5 MG TABLET. PO SCH (19:31)
--- NOTE | 2017-03-17 20:33 | PDOC ---
Exam Note: Brenden Note: Please also refer to the separate dictated note~for this date of service dictated separately.~Patient seen individually. Discussed the patient with Nursing staff reviewed the chart.~Reviewed interim history and current functioning. Reviewed vital signs,~Labs/ Radiology~and current medications noted below. Continue current treatment with the changes noted in the dictated addendum note Assessment: Vital Signs: Vital Signs Date Time Temp Pulse Resp B/P (MAP) Pulse Ox O2 Delivery O2 Flow Rate FiO2 03/17/17 16:16 98.4 62 18 114/62 (79) 97 03/16/17 16:12 Room Air I&O Intake and Output 03/17/17 07:00 Intake Total 960 ml Balance 960 ml Intake Oral 960 ml # Bowel Movements 2 Current Medications: Meds: Current Medications Acetaminophen (Tylenol) 650 mg PRN Q6HRS PRN PO PAIN / TEMP; Start 03/07/17 at 20:15; Stop 03/07/17 at 22:01; Status DC Acetaminophen (Tylenol) 650 mg PRN Q6HRS PRN PO PAIN / TEMP; Start 03/07/17 at 22:00 Multi-Ingredient Ointment (Analgesic [place]) 1 pillo PRN QID PRN TP MUSCLE PAIN; Start 03/07/17 at 22:00 Al Hydroxide/Mg Hydroxide (Mylanta Plus Xs) 15 ml PRN AFTMEALHC PRN PO DYSPEPSIA; Start 03/07/17 at 22:00 Magnesium Hydroxide (Milk Of Magnesia) 2,400 mg PRN QHS PRN PO CONSTIPATION; Start 03/07/17 at 22:00 Olanzapine (ZyPREXA ZYDIS) 2.5 mg PRN Q2HR PRN PO PSYCHOSIS Last administered on 03/14/17at 16:10; Start 03/07/17 at 22:15 Quetiapine Fumarate (SEROquel) 25 mg TID PO Last administered on 03/09/17at 13: 15; Start 03/08/17 at 09:00; Stop 03/09/17 at 18:21; Status DC Sertraline HCl (Zoloft) 50 mg DAILY PO Last administered on 03/17/17at 08:03; Start 03/08/17 at 09:00 Acetaminophen (Tylenol) 325 mg PRN Q6HRS PRN PO PAIN / TEMP; Start 03/08/17 at 06:00; Stop 03/10/17 at 14:41; Status DC Amlodipine Besylate (Norvasc) 5 mg DAILY PO Last administered on 03/16/17at 07: 27; Start 03/08/17 at 09:00 Cyanocobalamin (Vitamin B-12) 1,000 mcg QMONTH IM ; Start 03/08/17 at 09:00; Stop 03/08/17 at 11:44; Status DC Levothyroxine Sodium (Synthroid) 150 mcg DAILY06 PO Last administered on at 05:39; Start 03/08/17 at 07:30 Metoprolol Succinate (Toprol Xl) 50 mg DAILY PO Last administered on 03/16/17at 07:28; Start 03/08/17 at 09:00 Alendronate Sodium (Fosamax) 70 mg Q7D PO Last administered on 03/16/17at 05:54 ; Start 03/09/17 at 06:00 Ascorbic Acid (Vitamin C) 1,000 mg DAILY PO Last administered on 03/17/17at 08: 03; Start 03/08/17 at 09:00 Calcium/Vitamin D (Oscal D 500mg/ 200uts) 1 tab DAILY PO Last administered on at 08:02; Start 03/08/17 at 09:00 Vitamin D (Vitamin D3) 2,000 unit DAILY PO Last administered on 03/17/17at 08:02 ; Start 03/08/17 at 09:00 Loperamide HCl (Imodium) 4 mg PRN DAILY PRN PO LOOSE STOOL; Start 03/08/17 at 07:30 Memantine (Namenda) 10 mg BID PO Last administered on 03/17/17at 19:32; Start at 09:00 Non-Formulary Medication 1 ml PRN TID PRN TD ANXIETY / AGITATION; Start at 06:00; Stop 03/08/17 at 16:34; Status DC Donepezil HCl (Aricept) 23 mg QHS PO Last administered on 03/17/17at 19:31; Start 03/08/17 at 21:00 Cyanocobalamin (Vitamin B-12) 1,000 mcg QMONTH IM Last administered on at 08:06; Start 03/17/17 at 09:00 Quetiapine Fumarate (SEROquel) 37.5 mg TID PO Last administered on 03/13/17at 13 :14; Start 03/09/17 at 21:00; Stop 03/13/17 at 13:55; Status DC Hydroxyzine HCl (Atarax) 25 mg PRN TID PRN PO ANXIETY / AGITATION Last administered on 03/14/17at 16:10; Start 03/11/17 at 07:45 Lorazepam (Ativan) 0.25 mg PRN Q2HR PRN TP ANXIETY / AGITATION; Start 03/11/17 at 07:45 Valproic Acid (Depakene) 125 mg BIDWMEALS PEG Last administered on 03/15/17at 07 :57; Start 03/12/17 at 08:00; Stop 03/15/17 at 11:10; Status DC Quetiapine Fumarate (SEROquel) 50 mg TID PO Last administered on 03/14/17at 14: 55; Start 03/13/17 at 14:00; Stop 03/14/17 at 17:41; Status DC Mirtazapine (Remeron) 7.5 mg QHS PO Last administered on 03/17/17at 19:31; Start 03/13/17 at 21:00 Quetiapine Fumarate (SEROquel) 62.5 mg TID PO Last administered on 03/17/17at 19 :32; Start 03/14/17 at 21:00 Valproic Acid (Depakene) 125 mg TID@0900,1700,2100 PO Last administered on 03/17at 19:31; Start 03/15/17 at 17:00 Active Scripts Active Reported Loperamide (Loperamide Hcl) 2 Mg Tablet 4 Mg PO PRN DAILY PRN Acetaminophen 325 Mg Tablet 325 Mg PO PRN Q6HRS PRN [Abh Cream] 1 Ml TD PRN TID PRN Vitamin D3 (Cholecalciferol (Vitamin D3)) 2,000 Unit Capsule 2,000 Unit PO DAILY Vitamin C (Ascorbic Acid) 1,000 Mg Tablet 1,000 Mg PO DAILY Zoloft (Sertraline Hcl) 50 Mg Tablet 50 Mg PO DAILY Seroquel (Quetiapine Fumarate) 25 Mg Tablet 25 Mg PO TID Namenda Xr (Memantine Hcl) 28 Mg Cap.spr.24 28 Mg PO DAILY Toprol Xl (Metoprolol Succinate) 50 Mg Tab.er.24h 50 Mg PO DAILY Levothyroxine Sodium 150 Mcg Tablet 150 Mcg PO DAILYAC Zyprexa Zydis (Olanzapine) 5 Mg Tab.rapdis 2.5 Mg PO PRN Q2HR PRN MDD 7.5 [Donepezil] 23 Mg PO QHS Cyanocobalamin Injection (Cyanocobalamin (Vitamin B-12)) 1,000 Mcg/1 Ml Vial 1, 000 Mcg IJ QMONTH Citracal + D Er Tablet (Calcium Carb & Cit/Vitamin D3) 1 Each Tablet.er 1 Each PO DAILY Norvasc (Amlodipine Besylate) 5 Mg Tablet 5 Mg PO DAILY Alendronate Sodium 70 Mg Tablet 70 Mg PO QFR I have reviewed the current psychotropics carefully including drug interactions. Risk benefit ratio favors no change other than as noted in my dictated progress note. Diagnosis: Problems: (1) Anxiety disorder (2) Impulse control disorder (3) Dementia, vascular, with depression (4) Dementia, vascular, with delusions (5) Dementia in Alzheimer's disease with depression (6) Dementia in Alzheimer's disease with delusions (7) Suicidal ideation (8) Dementia with behavioral disturbance FALGUNI RUBIO MD Mar 17, 2017 20:33
[2017-03-18 05:41] VITALS: BP 189/75
[2017-03-18] MEDS: QUEtiapine 50 MG TABLET. PO SCH ×3 (07:34→19:26)
[2017-03-18] MEDS: LEVOTHYROXINE 150 MCG TABLET PO SCH (07:34)
[2017-03-18] MEDS: MEMANTINE 10 MG TABLET. PO SCH ×2 (07:35→19:26)
[2017-03-18] MEDS: METOPROLOL SUCC 24HR ER 50 MG TAB.ER.24H. PO SCH (07:35)
[2017-03-18] MEDS: CHOLECALCIFEROL (VITAMIN D3) 1,000 UNIT TABLET PO SCH (07:35)
[2017-03-18] MEDS: CALCIUM CARB/VIT D3 500/200 TABLET PO SCH (07:35)
[2017-03-18] MEDS: amLODIPine BESYLATE 5 MG TABLET PO SCH (07:35)
[2017-03-18] MEDS: ASCORBIC ACID 500 MG TABLET PO SCH (07:36)
[2017-03-18] MEDS: SERTRALINE 50 MG TABLET. PO SCH (07:36)
[2017-03-18] MEDS: VALPROATE ACID 250 MG/5 ML ORAL SOLUTION PO SCH ×3 (07:36→19:35)
[2017-03-18 10:05] LABS: BASO # 0.1 x10^3/uL (0.0-0.2); BASO % 1 % (0-3); EOS # 0.1 x10^3/uL (0.0-0.7); EOS % 1 % (0-3); HEMATOCRIT 36.9 % (36.0-47.0); HEMOGLOBIN 12.4 g/dL (12.0-15.5); LYMPH # 1.8 x10^3/uL (1.0-4.8); LYMPH % 28 % (24-48); MEAN CORPUSCULAR HEMOGLOBIN 35 pg (25-35); MEAN CORPUSCULAR HGB CONC 34 g/dL (31-37); MEAN CORPUSCULAR VOLUME 103 fL (79-100); MONO # 0.4 x10^3/uL (0.0-1.1); MONO % 7 % (0-9); NEUT % 63 % (31-73); PLATELET COUNT 209 x10^3/uL (140-400); RED BLOOD COUNT 3.57 x10^6/uL (3.50-5.40); RED CELL DISTRIBUTION WIDTH 13.5 % (11.5-14.5); WHITE BLOOD COUNT 6.3 x10^3/uL (4.0-11.0)
[2017-03-18 10:20] LABS: ALBUMIN 3.2 g/dL (3.4-5.0); ALBUMIN/GLOBULIN RATIO 0.9 (1.0-1.7); ALK PHOS 71 U/L (46-116); ALT (SGPT) 40 U/L (14-59); ANION GAP 7 (6-14); AST (SGOT) 31 U/L (15-37); BLOOD UREA NITROGEN 15 mg/dL (7-20); BUN/CREATININE RATIO 21 (6-20); CALCIUM 8.9 mg/dL (8.5-10.1); CARBON DIOXIDE 29 mmol/L (21-32); CHLORIDE 108 mmol/L (98-107); CREATININE 0.7 mg/dL (0.6-1.0); GFR 79.9; GLUCOSE 103 mg/dL (70-99); POTASSIUM 4.1 mmol/L (3.5-5.1); SODIUM 144 mmol/L (136-145); TOTAL BILIRUBIN 0.3 mg/dL (0.2-1.0); TOTAL PROTEIN 6.9 g/dL (6.4-8.2)
[2017-03-18 10:24] LABS: VAL ACID 51 mcg/mL (50-100)
[2017-03-18] MEDS: LORazepam TOPICAL 0.5 MG/ML GEL TP PRN (11:00)
[2017-03-18 16:19] VITALS: BP 109/76
--- NOTE | 2017-03-18 18:44 | PN ---
DATE: 03/16/2017 This late entry 03/16/2017 covers elements not covered in my initial note 03/16/2017. SUBJECTIVE: I met with the patient evening of 03/16/2017. Per nursing report, the patient had a good day, agitated after 7:00 p.m., who repeatedly states she wants to go home, does get redirected, takes some meds in [place]. REVIEW OF SYSTEMS: Ambulation impaired, in wheelchair. No CV, , pulmonary, eye, ENT system symptoms on review. Reliability poor. MENTAL STATUS EXAM: Oriented to herself. Insight, judgment, recent and remote memory, attention, concentration, fund of knowledge poor, consistent with her diagnosis mentioned in my initial note. IMPRESSION: Major neurocognitive disorder, Alzheimer, vascular with depression, delusion, behavioral disturbance. Rest unchanged. PLAN: Continue psychotropics mentioned in my initial note. MAN Minna RUBIO MD DR: JAMEE/rachael JOB#: [id number] / [id number]
[2017-03-18] MEDS: DONEPEZIL 23 MG TABLET PO SCH (19:26)
[2017-03-18] MEDS: traZODone 50 MG TABLET. PO PRN (19:28)
[2017-03-18] MEDS: MIRTAZAPINE 15 MG TABLET PO SCH (19:33)
--- NOTE | 2017-03-18 20:09 | PDOC ---
Exam Note: Brenden Note: Please also refer to the separate dictated note~for this date of service dictated separately.~Patient seen individually. Discussed the patient with Nursing staff reviewed the chart.~Reviewed interim history and current functioning. Reviewed vital signs,~Labs/ Radiology~and current medications noted below. Continue current treatment with the changes noted in the dictated addendum note Assessment: Vital Signs: Vital Signs Date Time Temp Pulse Resp B/P (MAP) Pulse Ox O2 Delivery O2 Flow Rate FiO2 03/18/17 16:19 97.9 75 20 109/76 (87) 94 03/16/17 16:12 Room Air I&O Intake and Output 03/18/17 07:00 Intake Total 800 ml Balance 800 ml Intake Oral 800 ml Labs: Laboratory Tests Test 03/18/17 09:39 White Blood Count 6.3 x10^3/uL (4.0-11.0) Red Blood Count 3.57 x10^6/uL (3.50-5.40) Hemoglobin 12.4 g/dL (12.0-15.5) Hematocrit 36.9 % (36.0-47.0) Mean Corpuscular Volume 103 fL (79-100) H Mean Corpuscular Hemoglobin 35 pg (25-35) Mean Corpuscular Hemoglobin Concent 34 g/dL (31-37) Red Cell Distribution Width 13.5 % (11.5-14.5) Platelet Count 209 x10^3/uL (140-400) Neutrophils (%) (Auto) 63 % (31-73) Lymphocytes (%) (Auto) 28 % (24-48) Monocytes (%) (Auto) 7 % (0-9) Eosinophils (%) (Auto) 1 % (0-3) Basophils (%) (Auto) 1 % (0-3) Neutrophils # (Auto) 4.0 x10^3uL (1.8-7.7) Lymphocytes # (Auto) 1.8 x10^3/uL (1.0-4.8) Monocytes # (Auto) 0.4 x10^3/uL (0.0-1.1) Eosinophils # (Auto) 0.1 x10^3/uL (0.0-0.7) Basophils # (Auto) 0.1 x10^3/uL (0.0-0.2) Sodium Level 144 mmol/L (136-145) Potassium Level 4.1 mmol/L (3.5-5.1) Chloride Level 108 mmol/L (98-107) H Carbon Dioxide Level 29 mmol/L (21-32) Anion Gap 7 (6-14) Blood Urea Nitrogen 15 mg/dL (7-20) Creatinine 0.7 mg/dL (0.6-1.0) Estimated GFR (Cockcroft-Gault) 79.9 BUN/Creatinine Ratio 21 (6-20) H Glucose Level 103 mg/dL (70-99) H Calcium Level 8.9 mg/dL (8.5-10.1) Total Bilirubin 0.3 mg/dL (0.2-1.0) Aspartate Amino Transferase (AST) 31 U/L (15-37) Alanine Aminotransferase (ALT) 40 U/L (14-59) Alkaline Phosphatase 71 U/L (46-116) Total Protein 6.9 g/dL (6.4-8.2) Albumin 3.2 g/dL (3.4-5.0) L Albumin/Globulin Ratio 0.9 (1.0-1.7) L Valproic Acid Level 51 mcg/mL (50-100) Valproic Acid Last Dose Date 03/17/2017 Valproic Acid Last Dose Time 2100 Current Medications: Meds: Current Medications Acetaminophen (Tylenol) 650 mg PRN Q6HRS PRN PO PAIN / TEMP; Start 03/07/17 at 20:15; Stop 03/07/17 at 22:01; Status DC Acetaminophen (Tylenol) 650 mg PRN Q6HRS PRN PO PAIN / TEMP; Start 03/07/17 at 22:00 Multi-Ingredient Ointment (Analgesic [place]) 1 pillo PRN QID PRN TP MUSCLE PAIN; Start 03/07/17 at 22:00 Al Hydroxide/Mg Hydroxide (Mylanta Plus Xs) 15 ml PRN AFTMEALHC PRN PO DYSPEPSIA; Start 03/07/17 at 22:00 Magnesium Hydroxide (Milk Of Magnesia) 2,400 mg PRN QHS PRN PO CONSTIPATION; Start 03/07/17 at 22:00 Olanzapine (ZyPREXA ZYDIS) 2.5 mg PRN Q2HR PRN PO PSYCHOSIS Last administered on 03/14/17at 16:10; Start 03/07/17 at 22:15 Quetiapine Fumarate (SEROquel) 25 mg TID PO Last administered on 03/09/17at 13: 15; Start 03/08/17 at 09:00; Stop 03/09/17 at 18:21; Status DC Sertraline HCl (Zoloft) 50 mg DAILY PO Last administered on 03/18/17at 07:36; Start 03/08/17 at 09:00 Acetaminophen (Tylenol) 325 mg PRN Q6HRS PRN PO PAIN / TEMP; Start 03/08/17 at 06:00; Stop 03/10/17 at 14:41; Status DC Amlodipine Besylate (Norvasc) 5 mg DAILY PO Last administered on 03/18/17at 07: 35; Start 03/08/17 at 09:00 Cyanocobalamin (Vitamin B-12) 1,000 mcg QMONTH IM ; Start 03/08/17 at 09:00; Stop 03/08/17 at 11:44; Status DC Levothyroxine Sodium (Synthroid) 150 mcg DAILY06 PO Last administered on at 07:34; Start 03/08/17 at 07:30 Metoprolol Succinate (Toprol Xl) 50 mg DAILY PO Last administered on 03/18/17at 07:35; Start 03/08/17 at 09:00 Alendronate Sodium (Fosamax) 70 mg Q7D PO Last administered on 03/16/17at 05:54 ; Start 03/09/17 at 06:00 Ascorbic Acid (Vitamin C) 1,000 mg DAILY PO Last administered on 03/18/17at 07: 36; Start 03/08/17 at 09:00 Calcium/Vitamin D (Oscal D 500mg/ 200uts) 1 tab DAILY PO Last administered on at 07:35; Start 03/08/17 at 09:00 Vitamin D (Vitamin D3) 2,000 unit DAILY PO Last administered on 03/18/17at 07:35 ; Start 03/08/17 at 09:00 Loperamide HCl (Imodium) 4 mg PRN DAILY PRN PO LOOSE STOOL; Start 03/08/17 at 07:30 Memantine (Namenda) 10 mg BID PO Last administered on 03/18/17at 19:26; Start at 09:00 Non-Formulary Medication 1 ml PRN TID PRN TD ANXIETY / AGITATION; Start at 06:00; Stop 03/08/17 at 16:34; Status DC Donepezil HCl (Aricept) 23 mg QHS PO Last administered on 03/18/17at 19:26; Start 03/08/17 at 21:00 Cyanocobalamin (Vitamin B-12) 1,000 mcg QMONTH IM Last administered on at 08:06; Start 03/17/17 at 09:00 Quetiapine Fumarate (SEROquel) 37.5 mg TID PO Last administered on 03/13/17at 13 :14; Start 03/09/17 at 21:00; Stop 03/13/17 at 13:55; Status DC Hydroxyzine HCl (Atarax) 25 mg PRN TID PRN PO ANXIETY / AGITATION Last administered on 03/14/17at 16:10; Start 03/11/17 at 07:45 Lorazepam (Ativan) 0.25 mg PRN Q2HR PRN TP ANXIETY / AGITATION Last administered on 03/18/17at 11:00; Start 03/11/17 at 07:45 Valproic Acid (Depakene) 125 mg BIDWMEALS PEG Last administered on 03/15/17at 07 :57; Start 03/12/17 at 08:00; Stop 03/15/17 at 11:10; Status DC Quetiapine Fumarate (SEROquel) 50 mg TID PO Last administered on 03/14/17at 14: 55; Start 03/13/17 at 14:00; Stop 03/14/17 at 17:41; Status DC Mirtazapine (Remeron) 7.5 mg QHS PO Last administered on 03/17/17at 19:31; Start 03/13/17 at 21:00; Stop 03/18/17 at 18:53; Status DC Quetiapine Fumarate (SEROquel) 62.5 mg TID PO Last administered on 03/18/17at 19 :26; Start 03/14/17 at 21:00 Valproic Acid (Depakene) 125 mg TID@0900,1700,2100 PO Last administered on 03/18at 19:35; Start 03/15/17 at 17:00 Mirtazapine (Remeron) 15 mg QHS PO Last administered on 03/18/17at 19:33; Start 03/18/17 at 21:00 Trazodone HCl (Desyrel) 25 mg PRN QHS PRN PO INSOMNIA, MAY REPEAT X1 Last administered on 03/18/17at 19:28; Start 03/18/17 at 19:00 Active Scripts Active Reported Loperamide (Loperamide Hcl) 2 Mg Tablet 4 Mg PO PRN DAILY PRN Acetaminophen 325 Mg Tablet 325 Mg PO PRN Q6HRS PRN [Abh Cream] 1 Ml TD PRN TID PRN Vitamin D3 (Cholecalciferol (Vitamin D3)) 2,000 Unit Capsule 2,000 Unit PO DAILY Vitamin C (Ascorbic Acid) 1,000 Mg Tablet 1,000 Mg PO DAILY Zoloft (Sertraline Hcl) 50 Mg Tablet 50 Mg PO DAILY Seroquel (Quetiapine Fumarate) 25 Mg Tablet 25 Mg PO TID Namenda Xr (Memantine Hcl) 28 Mg Cap.spr.24 28 Mg PO DAILY Toprol Xl (Metoprolol Succinate) 50 Mg Tab.er.24h 50 Mg PO DAILY Levothyroxine Sodium 150 Mcg Tablet 150 Mcg PO DAILYAC Zyprexa Zydis (Olanzapine) 5 Mg Tab.rapdis 2.5 Mg PO PRN Q2HR PRN MDD 7.5 [Donepezil] 23 Mg PO QHS Cyanocobalamin Injection (Cyanocobalamin (Vitamin B-12)) 1,000 Mcg/1 Ml Vial 1, 000 Mcg IJ QMONTH Citracal + D Er Tablet (Calcium Carb & Cit/Vitamin D3) 1 Each Tablet.er 1 Each PO DAILY Norvasc (Amlodipine Besylate) 5 Mg Tablet 5 Mg PO DAILY Alendronate Sodium 70 Mg Tablet 70 Mg PO QFR I have reviewed the current psychotropics carefully including drug interactions. Risk benefit ratio favors no change other than as noted in my dictated progress note. Diagnosis: Problems: (1) Anxiety disorder (2) Impulse control disorder (3) Dementia, vascular, with depression (4) Dementia, vascular, with delusions (5) Dementia in Alzheimer's disease with depression (6) Dementia in Alzheimer's disease with delusions (7) Suicidal ideation (8) Dementia with behavioral disturbance FALGUNI RUBIO MD Mar 18, 2017 20:09
[2017-03-19 06:19] VITALS: BP 153/73
[2017-03-19] MEDS: LEVOTHYROXINE 150 MCG TABLET PO SCH (07:48)
[2017-03-19] MEDS: MEMANTINE 10 MG TABLET. PO SCH ×2 (07:49→20:07)
[2017-03-19] MEDS: VALPROATE ACID 250 MG/5 ML ORAL SOLUTION PO SCH ×3 (07:49→20:07)
[2017-03-19] MEDS: CALCIUM CARB/VIT D3 500/200 TABLET PO SCH ×2 (07:50→09:00)
[2017-03-19] MEDS: amLODIPine BESYLATE 5 MG TABLET PO SCH (07:50)
[2017-03-19] MEDS: QUEtiapine 50 MG TABLET. PO SCH ×3 (07:50→20:07)
[2017-03-19] MEDS: SERTRALINE 50 MG TABLET. PO SCH (07:51)
[2017-03-19] MEDS: ASCORBIC ACID 500 MG TABLET PO SCH ×2 (07:51→09:00)
[2017-03-19] MEDS: CHOLECALCIFEROL (VITAMIN D3) 1,000 UNIT TABLET PO SCH ×2 (07:51→09:00)
[2017-03-19] MEDS: METOPROLOL SUCC 24HR ER 50 MG TAB.ER.24H. PO SCH (07:51)
[2017-03-19 16:03] VITALS: BP 95/57
[2017-03-19] MEDS: DONEPEZIL 23 MG TABLET PO SCH (20:06)
[2017-03-19] MEDS: MIRTAZAPINE 15 MG TABLET PO SCH (20:07)
--- NOTE | 2017-03-19 20:12 | PDOC ---
Exam Note: Brenden Note: Please also refer to the separate dictated note~for this date of service dictated separately.~Patient seen individually. Discussed the patient with Nursing staff reviewed the chart.~Reviewed interim history and current functioning. Reviewed vital signs,~Labs/ Radiology~and current medications noted below. Continue current treatment with the changes noted in the dictated addendum note Assessment: Vital Signs: Vital Signs Date Time Temp Pulse Resp B/P (MAP) Pulse Ox O2 Delivery O2 Flow Rate FiO2 03/19/17 16:03 97.9 64 18 95/57 (70) 94 03/19/17 06:19 Room Air I&O Intake and Output 03/19/17 07:00 Intake Total 1800 ml Balance 1800 ml Intake Oral 1800 ml # Voids 1 Current Medications: Meds: Current Medications Acetaminophen (Tylenol) 650 mg PRN Q6HRS PRN PO PAIN / TEMP; Start 03/07/17 at 20:15; Stop 03/07/17 at 22:01; Status DC Acetaminophen (Tylenol) 650 mg PRN Q6HRS PRN PO PAIN / TEMP; Start 03/07/17 at 22:00 Multi-Ingredient Ointment (Analgesic [place]) 1 pillo PRN QID PRN TP MUSCLE PAIN; Start 03/07/17 at 22:00 Al Hydroxide/Mg Hydroxide (Mylanta Plus Xs) 15 ml PRN AFTMEALHC PRN PO DYSPEPSIA; Start 03/07/17 at 22:00 Magnesium Hydroxide (Milk Of Magnesia) 2,400 mg PRN QHS PRN PO CONSTIPATION; Start 03/07/17 at 22:00 Olanzapine (ZyPREXA ZYDIS) 2.5 mg PRN Q2HR PRN PO PSYCHOSIS Last administered on 03/14/17at 16:10; Start 03/07/17 at 22:15 Quetiapine Fumarate (SEROquel) 25 mg TID PO Last administered on 03/09/17at 13: 15; Start 03/08/17 at 09:00; Stop 03/09/17 at 18:21; Status DC Sertraline HCl (Zoloft) 50 mg DAILY PO Last administered on 03/19/17at 07:51; Start 03/08/17 at 09:00 Acetaminophen (Tylenol) 325 mg PRN Q6HRS PRN PO PAIN / TEMP; Start 03/08/17 at 06:00; Stop 03/10/17 at 14:41; Status DC Amlodipine Besylate (Norvasc) 5 mg DAILY PO Last administered on 03/19/17at 07: 50; Start 03/08/17 at 09:00 Cyanocobalamin (Vitamin B-12) 1,000 mcg QMONTH IM ; Start 03/08/17 at 09:00; Stop 03/08/17 at 11:44; Status DC Levothyroxine Sodium (Synthroid) 150 mcg DAILY06 PO Last administered on at 07:48; Start 03/08/17 at 07:30 Metoprolol Succinate (Toprol Xl) 50 mg DAILY PO Last administered on 03/19/17at 07:51; Start 03/08/17 at 09:00 Alendronate Sodium (Fosamax) 70 mg Q7D PO Last administered on 03/16/17at 05:54 ; Start 03/09/17 at 06:00 Ascorbic Acid (Vitamin C) 1,000 mg DAILY PO Last administered on 03/18/17at 07: 36; Start 03/08/17 at 09:00 Calcium/Vitamin D (Oscal D 500mg/ 200uts) 1 tab DAILY PO Last administered on at 07:35; Start 03/08/17 at 09:00 Vitamin D (Vitamin D3) 2,000 unit DAILY PO Last administered on 03/18/17at 07:35 ; Start 03/08/17 at 09:00 Loperamide HCl (Imodium) 4 mg PRN DAILY PRN PO LOOSE STOOL; Start 03/08/17 at 07:30 Memantine (Namenda) 10 mg BID PO Last administered on 03/19/17at 20:07; Start at 09:00 Non-Formulary Medication 1 ml PRN TID PRN TD ANXIETY / AGITATION; Start at 06:00; Stop 03/08/17 at 16:34; Status DC Donepezil HCl (Aricept) 23 mg QHS PO Last administered on 03/19/17at 20:06; Start 03/08/17 at 21:00 Cyanocobalamin (Vitamin B-12) 1,000 mcg QMONTH IM Last administered on at 08:06; Start 03/17/17 at 09:00 Quetiapine Fumarate (SEROquel) 37.5 mg TID PO Last administered on 03/13/17at 13 :14; Start 03/09/17 at 21:00; Stop 03/13/17 at 13:55; Status DC Hydroxyzine HCl (Atarax) 25 mg PRN TID PRN PO ANXIETY / AGITATION Last administered on 03/14/17at 16:10; Start 03/11/17 at 07:45 Lorazepam (Ativan) 0.25 mg PRN Q2HR PRN TP ANXIETY / AGITATION Last administered on 03/18/17at 11:00; Start 03/11/17 at 07:45 Valproic Acid (Depakene) 125 mg BIDWMEALS PEG Last administered on 03/15/17at 07 :57; Start 03/12/17 at 08:00; Stop 03/15/17 at 11:10; Status DC Quetiapine Fumarate (SEROquel) 50 mg TID PO Last administered on 03/14/17at 14: 55; Start 03/13/17 at 14:00; Stop 03/14/17 at 17:41; Status DC Mirtazapine (Remeron) 7.5 mg QHS PO Last administered on 03/17/17at 19:31; Start 03/13/17 at 21:00; Stop 03/18/17 at 18:53; Status DC Quetiapine Fumarate (SEROquel) 62.5 mg TID PO Last administered on 03/19/17at 20 :07; Start 03/14/17 at 21:00 Valproic Acid (Depakene) 125 mg TID@0900,1700,2100 PO Last administered on 03/19at 20:07; Start 03/15/17 at 17:00 Mirtazapine (Remeron) 15 mg QHS PO Last administered on 03/19/17at 20:07; Start 03/18/17 at 21:00 Trazodone HCl (Desyrel) 25 mg PRN QHS PRN PO INSOMNIA, MAY REPEAT X1 Last administered on 03/18/17at 19:28; Start 03/18/17 at 19:00 Active Scripts Active Reported Loperamide (Loperamide Hcl) 2 Mg Tablet 4 Mg PO PRN DAILY PRN Acetaminophen 325 Mg Tablet 325 Mg PO PRN Q6HRS PRN [Abh Cream] 1 Ml TD PRN TID PRN Vitamin D3 (Cholecalciferol (Vitamin D3)) 2,000 Unit Capsule 2,000 Unit PO DAILY Vitamin C (Ascorbic Acid) 1,000 Mg Tablet 1,000 Mg PO DAILY Zoloft (Sertraline Hcl) 50 Mg Tablet 50 Mg PO DAILY Seroquel (Quetiapine Fumarate) 25 Mg Tablet 25 Mg PO TID Namenda Xr (Memantine Hcl) 28 Mg Cap.spr.24 28 Mg PO DAILY Toprol Xl (Metoprolol Succinate) 50 Mg Tab.er.24h 50 Mg PO DAILY Levothyroxine Sodium 150 Mcg Tablet 150 Mcg PO DAILYAC Zyprexa Zydis (Olanzapine) 5 Mg Tab.rapdis 2.5 Mg PO PRN Q2HR PRN MDD 7.5 [Donepezil] 23 Mg PO QHS Cyanocobalamin Injection (Cyanocobalamin (Vitamin B-12)) 1,000 Mcg/1 Ml Vial 1, 000 Mcg IJ QMONTH Citracal + D Er Tablet (Calcium Carb & Cit/Vitamin D3) 1 Each Tablet.er 1 Each PO DAILY Norvasc (Amlodipine Besylate) 5 Mg Tablet 5 Mg PO DAILY Alendronate Sodium 70 Mg Tablet 70 Mg PO QFR I have reviewed the current psychotropics carefully including drug interactions. Risk benefit ratio favors no change other than as noted in my dictated progress note. Diagnosis: Problems: (1) Anxiety disorder (2) Impulse control disorder (3) Dementia, vascular, with depression (4) Dementia, vascular, with delusions (5) Dementia in Alzheimer's disease with depression (6) Dementia in Alzheimer's disease with delusions (7) Suicidal ideation (8) Dementia with behavioral disturbance FALGUNI RUBIO MD Mar 19, 2017 20:12
--- NOTE | 2017-03-20 00:22 | PN ---
DATE: 03/17/2017 PSYCHIATRIC PROGRESS NOTE HISTORY OF PRESENT ILLNESS: This is a late entry of 03/17/2017, covers elements not covered in my initial note of 03/17/2017. I met with the patient on the evening of 03/17/2017. Overall, the patient remains confused, had a better day, not sleeping very well. We will see how she does another day before changing something for insomnia. REVIEW OF SYSTEMS: No CV, , pulmonary, eye, ENT system symptoms on review. Reliability poor. MENTAL STATUS EXAM: Oriented to herself. Insight, judgment, recent and remote memory, attention, concentration, fund of knowledge poor, consistent with her diagnosis mentioned in my initial note. IMPRESSION: Major neurocognitive disorder, Alzheimer, vascular with depression, delusion, behavioral disturbance. PLAN: Continue current psychotropics, increase Seroquel if mood lability resurfaces. MAN Minna RUBIO MD DR: JAMEE/rachael JOB#: [id number] / [id number]
--- NOTE | 2017-03-20 00:36 | PN ---
DATE: 03/18/2017 PSYCHIATRIC PROGRESS NOTE HISTORY OF PRESENT ILLNESS: This is a late entry of 03/18/2017 covers elements not covered in my initial note of 03/18/2017. The patient was seen individually evening of 03/18/2017. Slept 5-3/4 hours previous evening, had a good day, takes meds and drinks. Confused. REVIEW OF SYSTEMS: No CV, , pulmonary, eye system symptoms on review. Reliability poor. Gait unsteady, in wheelchair. MENTAL STATUS EXAM: Oriented to herself. Insight, judgment, recent and remote memory, attention, concentration, fund of knowledge poor, consistent with her diagnosis mentioned in my initial note. IMPRESSION: Major neurocognitive disorder, Alzheimer, vascular with depression, delusion, behavioral disturbance. PLAN: Continue psychotropics mentioned in my initial note. Increase Remeron to 15 mg at bedtime, trazodone will be started 25 mg at bedtime p.r.n., may repeat x 1 for insomnia. Valproic acid level is therapeutic at 51. MAN Minna RUBIO MD DR: JAMEE/rachael JOB#: [id number] / [id number]
[2017-03-20] MEDS: LEVOTHYROXINE 150 MCG TABLET PO SCH (05:14)
[2017-03-20 06:18] VITALS: BP 141/58
[2017-03-20] MEDS: amLODIPine BESYLATE 5 MG TABLET PO SCH (09:13)
[2017-03-20] MEDS: METOPROLOL SUCC 24HR ER 50 MG TAB.ER.24H. PO SCH (09:14)
[2017-03-20] MEDS: CHOLECALCIFEROL (VITAMIN D3) 1,000 UNIT TABLET PO SCH (09:14)
[2017-03-20] MEDS: QUEtiapine 50 MG TABLET. PO SCH ×3 (09:14→19:19)
[2017-03-20] MEDS: ASCORBIC ACID 500 MG TABLET PO SCH (09:14)
[2017-03-20] MEDS: SERTRALINE 50 MG TABLET. PO SCH (09:15)
[2017-03-20] MEDS: VALPROATE ACID 250 MG/5 ML ORAL SOLUTION PO SCH ×3 (09:15→19:21)
[2017-03-20] MEDS: CALCIUM CARB/VIT D3 500/200 TABLET PO SCH (09:15)
[2017-03-20] MEDS: MEMANTINE 10 MG TABLET. PO SCH ×2 (09:15→19:19)
[2017-03-20 16:31] VITALS: BP 110/61
[2017-03-20] MEDS: MIRTAZAPINE 15 MG TABLET PO SCH (19:19)
[2017-03-20] MEDS: DONEPEZIL 23 MG TABLET PO SCH (19:19)
--- NOTE | 2017-03-20 20:12 | PDOC ---
Exam Note: Brenden Note: Please also refer to the separate dictated note~for this date of service dictated separately.~Patient seen individually. Discussed the patient with Nursing staff reviewed the chart.~Reviewed interim history and current functioning. Reviewed vital signs,~Labs/ Radiology~and current medications noted below. Continue current treatment with the changes noted in the dictated addendum note Assessment: Vital Signs: Vital Signs Date Time Temp Pulse Resp B/P (MAP) Pulse Ox O2 Delivery O2 Flow Rate FiO2 03/20/17 16:31 98.0 68 16 110/61 (77) 95 Room Air I&O Intake and Output 03/20/17 07:00 Intake Total 960 ml Balance 960 ml Intake Oral 960 ml # Voids 1 Current Medications: Meds: Current Medications Acetaminophen (Tylenol) 650 mg PRN Q6HRS PRN PO PAIN / TEMP; Start 03/07/17 at 20:15; Stop 03/07/17 at 22:01; Status DC Acetaminophen (Tylenol) 650 mg PRN Q6HRS PRN PO PAIN / TEMP; Start 03/07/17 at 22:00 Multi-Ingredient Ointment (Analgesic [place]) 1 pillo PRN QID PRN TP MUSCLE PAIN; Start 03/07/17 at 22:00 Al Hydroxide/Mg Hydroxide (Mylanta Plus Xs) 15 ml PRN AFTMEALHC PRN PO DYSPEPSIA; Start 03/07/17 at 22:00 Magnesium Hydroxide (Milk Of Magnesia) 2,400 mg PRN QHS PRN PO CONSTIPATION; Start 03/07/17 at 22:00 Olanzapine (ZyPREXA ZYDIS) 2.5 mg PRN Q2HR PRN PO PSYCHOSIS Last administered on 03/14/17at 16:10; Start 03/07/17 at 22:15 Quetiapine Fumarate (SEROquel) 25 mg TID PO Last administered on 03/09/17at 13: 15; Start 03/08/17 at 09:00; Stop 03/09/17 at 18:21; Status DC Sertraline HCl (Zoloft) 50 mg DAILY PO Last administered on 03/20/17at 09:15; Start 03/08/17 at 09:00 Acetaminophen (Tylenol) 325 mg PRN Q6HRS PRN PO PAIN / TEMP; Start 03/08/17 at 06:00; Stop 03/10/17 at 14:41; Status DC Amlodipine Besylate (Norvasc) 5 mg DAILY PO Last administered on 03/20/17at 09: 13; Start 03/08/17 at 09:00 Cyanocobalamin (Vitamin B-12) 1,000 mcg QMONTH IM ; Start 03/08/17 at 09:00; Stop 03/08/17 at 11:44; Status DC Levothyroxine Sodium (Synthroid) 150 mcg DAILY06 PO Last administered on at 05:14; Start 03/08/17 at 07:30 Metoprolol Succinate (Toprol Xl) 50 mg DAILY PO Last administered on 03/20/17 09:14; Start 03/08/17 at 09:00 Alendronate Sodium (Fosamax) 70 mg Q7D PO Last administered on 03/16/17at 05:54 ; Start 03/09/17 at 06:00 Ascorbic Acid (Vitamin C) 1,000 mg DAILY PO Last administered on 03/20/17at 09: 14; Start 03/08/17 at 09:00 Calcium/Vitamin D (Oscal D 500mg/ 200uts) 1 tab DAILY PO Last administered on at 09:15; Start 03/08/17 at 09:00 Vitamin D (Vitamin D3) 2,000 unit DAILY PO Last administered on 03/20/17at 09:14 ; Start 03/08/17 at 09:00 Loperamide HCl (Imodium) 4 mg PRN DAILY PRN PO LOOSE STOOL; Start 03/08/17 at 07:30 Memantine (Namenda) 10 mg BID PO Last administered on 03/20/17at 19:19; Start at 09:00 Non-Formulary Medication 1 ml PRN TID PRN TD ANXIETY / AGITATION; Start at 06:00; Stop 03/08/17 at 16:34; Status DC Donepezil HCl (Aricept) 23 mg QHS PO Last administered on 03/20/17at 19:19; Start 03/08/17 at 21:00 Cyanocobalamin (Vitamin B-12) 1,000 mcg QMONTH IM Last administered on at 08:06; Start 03/17/17 at 09:00 Quetiapine Fumarate (SEROquel) 37.5 mg TID PO Last administered on 03/13/17at 13 :14; Start 03/09/17 at 21:00; Stop 03/13/17 at 13:55; Status DC Hydroxyzine HCl (Atarax) 25 mg PRN TID PRN PO ANXIETY / AGITATION Last administered on 03/14/17at 16:10; Start 03/11/17 at 07:45 Lorazepam (Ativan) 0.25 mg PRN Q2HR PRN TP ANXIETY / AGITATION Last administered on 03/18/17at 11:00; Start 03/11/17 at 07:45 Valproic Acid (Depakene) 125 mg BIDWMEALS PEG Last administered on 03/15/17at 07 :57; Start 03/12/17 at 08:00; Stop 03/15/17 at 11:10; Status DC Quetiapine Fumarate (SEROquel) 50 mg TID PO Last administered on 03/14/17at 14: 55; Start 03/13/17 at 14:00; Stop 03/14/17 at 17:41; Status DC Mirtazapine (Remeron) 7.5 mg QHS PO Last administered on 03/17/17at 19:31; Start 03/13/17 at 21:00; Stop 03/18/17 at 18:53; Status DC Quetiapine Fumarate (SEROquel) 62.5 mg TID PO Last administered on 03/20/17at 19 :19; Start 03/14/17 at 21:00 Valproic Acid (Depakene) 125 mg TID@0900,1700,2100 PO Last administered on 03/20at 19:21; Start 03/15/17 at 17:00 Mirtazapine (Remeron) 15 mg QHS PO Last administered on 03/20/17at 19:19; Start 03/18/17 at 21:00 Trazodone HCl (Desyrel) 25 mg PRN QHS PRN PO INSOMNIA, MAY REPEAT X1 Last administered on 03/18/17at 19:28; Start 03/18/17 at 19:00 Active Scripts Active Reported Loperamide (Loperamide Hcl) 2 Mg Tablet 4 Mg PO PRN DAILY PRN Acetaminophen 325 Mg Tablet 325 Mg PO PRN Q6HRS PRN [Abh Cream] 1 Ml TD PRN TID PRN Vitamin D3 (Cholecalciferol (Vitamin D3)) 2,000 Unit Capsule 2,000 Unit PO DAILY Vitamin C (Ascorbic Acid) 1,000 Mg Tablet 1,000 Mg PO DAILY Zoloft (Sertraline Hcl) 50 Mg Tablet 50 Mg PO DAILY Seroquel (Quetiapine Fumarate) 25 Mg Tablet 25 Mg PO TID Namenda Xr (Memantine Hcl) 28 Mg Cap.spr.24 28 Mg PO DAILY Toprol Xl (Metoprolol Succinate) 50 Mg Tab.er.24h 50 Mg PO DAILY Levothyroxine Sodium 150 Mcg Tablet 150 Mcg PO DAILYAC Zyprexa Zydis (Olanzapine) 5 Mg Tab.rapdis 2.5 Mg PO PRN Q2HR PRN MDD 7.5 [Donepezil] 23 Mg PO QHS Cyanocobalamin Injection (Cyanocobalamin (Vitamin B-12)) 1,000 Mcg/1 Ml Vial 1, 000 Mcg IJ QMONTH Citracal + D Er Tablet (Calcium Carb & Cit/Vitamin D3) 1 Each Tablet.er 1 Each PO DAILY Norvasc (Amlodipine Besylate) 5 Mg Tablet 5 Mg PO DAILY Alendronate Sodium 70 Mg Tablet 70 Mg PO QFR I have reviewed the current psychotropics carefully including drug interactions. Risk benefit ratio favors no change other than as noted in my dictated progress note. Diagnosis: Problems: (1) Anxiety disorder (2) Impulse control disorder (3) Dementia, vascular, with depression (4) Dementia, vascular, with delusions (5) Dementia in Alzheimer's disease with depression (6) Dementia in Alzheimer's disease with delusions (7) Suicidal ideation (8) Dementia with behavioral disturbance FALGUNI RUBIO MD Mar 20, 2017 20:12
--- NOTE | 2017-03-21 00:42 | PN ---
DATE: 03/19/2017 This is a late entry 03/19/2017 covers elements not covered in my initial note 03/19/2017. I met with the patient in the evening of 03/19/2017. The patient slept 5-1/4 hours previous evening, had a good day, anxious on a couple of occasions gets restless, but redirects. REVIEW OF SYSTEMS: No CV, , pulmonary, eye, ENT system symptoms on review. Reliability poor. MENTAL STATUS EXAM: Oriented to herself. Insight, judgment, recent and remote memory, attention, concentration, fund of knowledge poor, consistent with her diagnosis mentioned in my initial note. IMPRESSION: Major neurocognitive disorder, Alzheimer, vascular with depression, delusion, behavioral disturbance. Valproic acid level therapeutic at 51. PLAN: Continue psychotropics mentioned in my initial note, may need to increase Seroquel if anxiety, mood lability resurfaces. MAN Minna RUBIO MD DR: JAMEE/rachael JOB#: [id number] / [id number]
[2017-03-21] MEDS: LEVOTHYROXINE 150 MCG TABLET PO SCH (05:51)
[2017-03-21 06:28] VITALS: BP 160/81
[2017-03-21] MEDS: MEMANTINE 10 MG TABLET. PO SCH ×2 (07:57→19:20)
[2017-03-21] MEDS: amLODIPine BESYLATE 5 MG TABLET PO SCH (07:57)
[2017-03-21] MEDS: SERTRALINE 50 MG TABLET. PO SCH (07:57)
[2017-03-21] MEDS: ASCORBIC ACID 500 MG TABLET PO SCH (07:57)
[2017-03-21] MEDS: QUEtiapine 50 MG TABLET. PO SCH ×3 (07:57→19:22)
[2017-03-21] MEDS: CALCIUM CARB/VIT D3 500/200 TABLET PO SCH (07:58)
[2017-03-21] MEDS: METOPROLOL SUCC 24HR ER 50 MG TAB.ER.24H. PO SCH (07:58)
[2017-03-21] MEDS: CHOLECALCIFEROL (VITAMIN D3) 1,000 UNIT TABLET PO SCH (07:58)
[2017-03-21] MEDS: VALPROATE ACID 250 MG/5 ML ORAL SOLUTION PO SCH ×3 (07:58→19:21)
[2017-03-21 15:54] VITALS: BP 100/53
[2017-03-21] MEDS: DONEPEZIL 23 MG TABLET PO SCH (19:20)
[2017-03-21] MEDS: MIRTAZAPINE 15 MG TABLET PO SCH (19:21)
--- NOTE | 2017-03-21 20:12 | PDOC ---
Exam Note: Brenden Note: Please also refer to the separate dictated note~for this date of service dictated separately.~Patient seen individually. Discussed the patient with Nursing staff reviewed the chart.~Reviewed interim history and current functioning. Reviewed vital signs,~Labs/ Radiology~and current medications noted below. Continue current treatment with the changes noted in the dictated addendum note Assessment: Vital Signs: Vital Signs Date Time Temp Pulse Resp B/P (MAP) Pulse Ox O2 Delivery O2 Flow Rate FiO2 03/21/17 15:54 98.2 66 18 100/53 (69) 95 03/21/17 06:28 Room Air I&O Intake and Output 03/21/17 07:00 Intake Total 1440 ml Balance 1440 ml Intake Oral 1440 ml # Bowel Movements 1 Current Medications: Meds: Current Medications Acetaminophen (Tylenol) 650 mg PRN Q6HRS PRN PO PAIN / TEMP; Start 03/07/17 at 20:15; Stop 03/07/17 at 22:01; Status DC Acetaminophen (Tylenol) 650 mg PRN Q6HRS PRN PO PAIN / TEMP; Start 03/07/17 at 22:00 Multi-Ingredient Ointment (Analgesic [place]) 1 pillo PRN QID PRN TP MUSCLE PAIN; Start 03/07/17 at 22:00 Al Hydroxide/Mg Hydroxide (Mylanta Plus Xs) 15 ml PRN AFTMEALHC PRN PO DYSPEPSIA; Start 03/07/17 at 22:00 Magnesium Hydroxide (Milk Of Magnesia) 2,400 mg PRN QHS PRN PO CONSTIPATION; Start 03/07/17 at 22:00 Olanzapine (ZyPREXA ZYDIS) 2.5 mg PRN Q2HR PRN PO PSYCHOSIS Last administered on 03/14/17at 16:10; Start 03/07/17 at 22:15 Quetiapine Fumarate (SEROquel) 25 mg TID PO Last administered on 03/09/17at 13: 15; Start 03/08/17 at 09:00; Stop 03/09/17 at 18:21; Status DC Sertraline HCl (Zoloft) 50 mg DAILY PO Last administered on 03/21/17at 07:57; Start 03/08/17 at 09:00 Acetaminophen (Tylenol) 325 mg PRN Q6HRS PRN PO PAIN / TEMP; Start 03/08/17 at 06:00; Stop 03/10/17 at 14:41; Status DC Amlodipine Besylate (Norvasc) 5 mg DAILY PO Last administered on 03/21/17at 07: 57; Start 03/08/17 at 09:00 Cyanocobalamin (Vitamin B-12) 1,000 mcg QMONTH IM ; Start 03/08/17 at 09:00; Stop 03/08/17 at 11:44; Status DC Levothyroxine Sodium (Synthroid) 150 mcg DAILY06 PO Last administered on at 05:51; Start 03/08/17 at 07:30 Metoprolol Succinate (Toprol Xl) 50 mg DAILY PO Last administered on 03/21/17 07:58; Start 03/08/17 at 09:00 Alendronate Sodium (Fosamax) 70 mg Q7D PO Last administered on 03/16/17at 05:54 ; Start 03/09/17 at 06:00 Ascorbic Acid (Vitamin C) 1,000 mg DAILY PO Last administered on 03/21/17at 07: 57; Start 03/08/17 at 09:00 Calcium/Vitamin D (Oscal D 500mg/ 200uts) 1 tab DAILY PO Last administered on 07:58; Start 03/08/17 at 09:00 Vitamin D (Vitamin D3) 2,000 unit DAILY PO Last administered on 03/21/17at 07:58 ; Start 03/08/17 at 09:00 Loperamide HCl (Imodium) 4 mg PRN DAILY PRN PO LOOSE STOOL; Start 03/08/17 at 07:30 Memantine (Namenda) 10 mg BID PO Last administered on 03/21/17at 19:20; Start at 09:00 Non-Formulary Medication 1 ml PRN TID PRN TD ANXIETY / AGITATION; Start at 06:00; Stop 03/08/17 at 16:34; Status DC Donepezil HCl (Aricept) 23 mg QHS PO Last administered on 03/21/17at 19:20; Start 03/08/17 at 21:00 Cyanocobalamin (Vitamin B-12) 1,000 mcg QMONTH IM Last administered on at 08:06; Start 03/17/17 at 09:00 Quetiapine Fumarate (SEROquel) 37.5 mg TID PO Last administered on 03/13/17at 13 :14; Start 03/09/17 at 21:00; Stop 03/13/17 at 13:55; Status DC Hydroxyzine HCl (Atarax) 25 mg PRN TID PRN PO ANXIETY / AGITATION Last administered on 03/14/17at 16:10; Start 03/11/17 at 07:45 Lorazepam (Ativan) 0.25 mg PRN Q2HR PRN TP ANXIETY / AGITATION Last administered on 03/18/17at 11:00; Start 03/11/17 at 07:45 Valproic Acid (Depakene) 125 mg BIDWMEALS PEG Last administered on 03/15/17at 07 :57; Start 03/12/17 at 08:00; Stop 03/15/17 at 11:10; Status DC Quetiapine Fumarate (SEROquel) 50 mg TID PO Last administered on 03/14/17at 14: 55; Start 03/13/17 at 14:00; Stop 03/14/17 at 17:41; Status DC Mirtazapine (Remeron) 7.5 mg QHS PO Last administered on 03/17/17at 19:31; Start 03/13/17 at 21:00; Stop 03/18/17 at 18:53; Status DC Quetiapine Fumarate (SEROquel) 62.5 mg TID PO Last administered on 03/21/17at 19 :22; Start 03/14/17 at 21:00 Valproic Acid (Depakene) 125 mg TID@0900,1700,2100 PO Last administered on 03/21at 19:21; Start 03/15/17 at 17:00 Mirtazapine (Remeron) 15 mg QHS PO Last administered on 03/21/17at 19:21; Start 03/18/17 at 21:00 Trazodone HCl (Desyrel) 25 mg PRN QHS PRN PO INSOMNIA, MAY REPEAT X1 Last administered on 03/18/17at 19:28; Start 03/18/17 at 19:00 Active Scripts Active Reported Loperamide (Loperamide Hcl) 2 Mg Tablet 4 Mg PO PRN DAILY PRN Acetaminophen 325 Mg Tablet 325 Mg PO PRN Q6HRS PRN [Abh Cream] 1 Ml TD PRN TID PRN Vitamin D3 (Cholecalciferol (Vitamin D3)) 2,000 Unit Capsule 2,000 Unit PO DAILY Vitamin C (Ascorbic Acid) 1,000 Mg Tablet 1,000 Mg PO DAILY Zoloft (Sertraline Hcl) 50 Mg Tablet 50 Mg PO DAILY Seroquel (Quetiapine Fumarate) 25 Mg Tablet 25 Mg PO TID Namenda Xr (Memantine Hcl) 28 Mg Cap.spr.24 28 Mg PO DAILY Toprol Xl (Metoprolol Succinate) 50 Mg Tab.er.24h 50 Mg PO DAILY Levothyroxine Sodium 150 Mcg Tablet 150 Mcg PO DAILYAC Zyprexa Zydis (Olanzapine) 5 Mg Tab.rapdis 2.5 Mg PO PRN Q2HR PRN MDD 7.5 [Donepezil] 23 Mg PO QHS Cyanocobalamin Injection (Cyanocobalamin (Vitamin B-12)) 1,000 Mcg/1 Ml Vial 1, 000 Mcg IJ QMONTH Citracal + D Er Tablet (Calcium Carb & Cit/Vitamin D3) 1 Each Tablet.er 1 Each PO DAILY Norvasc (Amlodipine Besylate) 5 Mg Tablet 5 Mg PO DAILY Alendronate Sodium 70 Mg Tablet 70 Mg PO QFR I have reviewed the current psychotropics carefully including drug interactions. Risk benefit ratio favors no change other than as noted in my dictated progress note. Diagnosis: Problems: (1) Anxiety disorder (2) Impulse control disorder (3) Dementia, vascular, with depression (4) Dementia, vascular, with delusions (5) Dementia in Alzheimer's disease with depression (6) Dementia in Alzheimer's disease with delusions (7) Suicidal ideation (8) Dementia with behavioral disturbance FALGUNI RUBIO MD Mar 21, 2017 20:12
[2017-03-21] MEDS: LORazepam TOPICAL 0.5 MG/ML GEL TP PRN (20:31)
--- NOTE | 2017-03-22 01:38 | PN ---
DATE: 03/20/2017 PSYCHIATRIC PROGRESS NOTE This is a late entry for 03/20/2017, covers elements not covered in my initial note of 03/20/2017. SUBJECTIVE: I met with the patient the evening of 03/20/2017. Overall, the patient is doing better, remains confused, gets a little more anxious in the evening, refuses her medications if given whole, but takes them crushed. REVIEW OF SYSTEMS: No CV, , pulmonary, eye, ENT system symptoms on review. Reliability poor. MENTAL STATUS EXAM: Oriented to herself. Insight, judgment, recent and remote memory, attention, concentration, fund of knowledge poor, consistent with her diagnosis mentioned in my initial note. IMPRESSION: Major neurocognitive disorder, Alzheimer, vascular with depression, delusion, behavioral disturbance. Rest unchanged. PLAN: Continue psychotropics mentioned in my initial note. Adjust further as clinically indicated. MAN Minna RUBIO MD DR: JAMEE/rachael JOB#: [id number] / [id number]
[2017-03-22] MEDS: LEVOTHYROXINE 150 MCG TABLET PO SCH (05:56)
[2017-03-22 05:58] VITALS: BP 123/52
[2017-03-22] MEDS: VALPROATE ACID 250 MG/5 ML ORAL SOLUTION PO SCH ×3 (08:55→20:18)
[2017-03-22] MEDS: CALCIUM CARB/VIT D3 500/200 TABLET PO SCH (08:55)
[2017-03-22] MEDS: MEMANTINE 10 MG TABLET. PO SCH ×2 (08:55→20:18)
[2017-03-22] MEDS: CHOLECALCIFEROL (VITAMIN D3) 1,000 UNIT TABLET PO SCH (08:55)
[2017-03-22] MEDS: ASCORBIC ACID 500 MG TABLET PO SCH (08:55)
[2017-03-22] MEDS: QUEtiapine 50 MG TABLET. PO SCH ×3 (08:55→20:17)
[2017-03-22] MEDS: SERTRALINE 50 MG TABLET. PO SCH (08:55)
[2017-03-22] MEDS: METOPROLOL SUCC 24HR ER 50 MG TAB.ER.24H. PO SCH (08:56)
[2017-03-22] MEDS: amLODIPine BESYLATE 5 MG TABLET PO SCH (08:56)
[2017-03-22 16:05] VITALS: BP 102/59
--- NOTE | 2017-03-22 20:00 | PDOC ---
Exam Note: Brenden Note: Please also refer to the separate dictated note~for this date of service dictated separately.~Patient seen individually. Discussed the patient with Nursing staff reviewed the chart.~Reviewed interim history and current functioning. Reviewed vital signs,~Labs/ Radiology~and current medications noted below. Continue current treatment with the changes noted in the dictated addendum note Assessment: Vital Signs: Vital Signs Date Time Temp Pulse Resp B/P (MAP) Pulse Ox O2 Delivery O2 Flow Rate FiO2 03/22/17 16:05 97.1 71 18 102/59 (73) 96 03/21/17 06:28 Room Air I&O Intake and Output 03/22/17 07:00 Intake Total 1080 ml Balance 1080 ml Intake Oral 1080 ml Current Medications: Meds: Current Medications Acetaminophen (Tylenol) 650 mg PRN Q6HRS PRN PO PAIN / TEMP; Start 03/07/17 at 20:15; Stop 03/07/17 at 22:01; Status DC Acetaminophen (Tylenol) 650 mg PRN Q6HRS PRN PO PAIN / TEMP; Start 03/07/17 at 22:00 Multi-Ingredient Ointment (Analgesic [place]) 1 pillo PRN QID PRN TP MUSCLE PAIN; Start 03/07/17 at 22:00 Al Hydroxide/Mg Hydroxide (Mylanta Plus Xs) 15 ml PRN AFTMEALHC PRN PO DYSPEPSIA; Start 03/07/17 at 22:00 Magnesium Hydroxide (Milk Of Magnesia) 2,400 mg PRN QHS PRN PO CONSTIPATION; Start 03/07/17 at 22:00 Olanzapine (ZyPREXA ZYDIS) 2.5 mg PRN Q2HR PRN PO PSYCHOSIS Last administered on 03/14/17at 16:10; Start 03/07/17 at 22:15 Quetiapine Fumarate (SEROquel) 25 mg TID PO Last administered on 03/09/17at 13: 15; Start 03/08/17 at 09:00; Stop 03/09/17 at 18:21; Status DC Sertraline HCl (Zoloft) 50 mg DAILY PO Last administered on 03/22/17at 08:55; Start 03/08/17 at 09:00 Acetaminophen (Tylenol) 325 mg PRN Q6HRS PRN PO PAIN / TEMP; Start 03/08/17 at 06:00; Stop 03/10/17 at 14:41; Status DC Amlodipine Besylate (Norvasc) 5 mg DAILY PO Last administered on 03/21/17at 07: 57; Start 03/08/17 at 09:00 Cyanocobalamin (Vitamin B-12) 1,000 mcg QMONTH IM ; Start 03/08/17 at 09:00; Stop 03/08/17 at 11:44; Status DC Levothyroxine Sodium (Synthroid) 150 mcg DAILY06 PO Last administered on at 05:56; Start 03/08/17 at 07:30 Metoprolol Succinate (Toprol Xl) 50 mg DAILY PO Last administered on 03/21/17 07:58; Start 03/08/17 at 09:00 Alendronate Sodium (Fosamax) 70 mg Q7D PO Last administered on 03/16/17at 05:54 ; Start 03/09/17 at 06:00 Ascorbic Acid (Vitamin C) 1,000 mg DAILY PO Last administered on 03/22/17at 08: 55; Start 03/08/17 at 09:00 Calcium/Vitamin D (Oscal D 500mg/ 200uts) 1 tab DAILY PO Last administered on at 08:55; Start 03/08/17 at 09:00 Vitamin D (Vitamin D3) 2,000 unit DAILY PO Last administered on 03/22/17at 08:55 ; Start 03/08/17 at 09:00 Loperamide HCl (Imodium) 4 mg PRN DAILY PRN PO LOOSE STOOL; Start 03/08/17 at 07:30 Memantine (Namenda) 10 mg BID PO Last administered on 03/22/17at 08:55; Start at 09:00 Non-Formulary Medication 1 ml PRN TID PRN TD ANXIETY / AGITATION; Start at 06:00; Stop 03/08/17 at 16:34; Status DC Donepezil HCl (Aricept) 23 mg QHS PO Last administered on 03/21/17at 19:20; Start 03/08/17 at 21:00 Cyanocobalamin (Vitamin B-12) 1,000 mcg QMONTH IM Last administered on at 08:06; Start 03/17/17 at 09:00 Quetiapine Fumarate (SEROquel) 37.5 mg TID PO Last administered on 03/13/17at 13 :14; Start 03/09/17 at 21:00; Stop 03/13/17 at 13:55; Status DC Hydroxyzine HCl (Atarax) 25 mg PRN TID PRN PO ANXIETY / AGITATION Last administered on 03/14/17at 16:10; Start 03/11/17 at 07:45 Lorazepam (Ativan) 0.25 mg PRN Q2HR PRN TP ANXIETY / AGITATION Last administered on 03/21/17at 20:31; Start 03/11/17 at 07:45 Valproic Acid (Depakene) 125 mg BIDWMEALS PEG Last administered on 03/15/17at 07 :57; Start 03/12/17 at 08:00; Stop 03/15/17 at 11:10; Status DC Quetiapine Fumarate (SEROquel) 50 mg TID PO Last administered on 03/14/17at 14: 55; Start 03/13/17 at 14:00; Stop 03/14/17 at 17:41; Status DC Mirtazapine (Remeron) 7.5 mg QHS PO Last administered on 03/17/17at 19:31; Start 03/13/17 at 21:00; Stop 03/18/17 at 18:53; Status DC Quetiapine Fumarate (SEROquel) 62.5 mg TID PO Last administered on 03/22/17at 14 :32; Start 03/14/17 at 21:00 Valproic Acid (Depakene) 125 mg TID@0900,1700,2100 PO Last administered on 03/22at 16:45; Start 03/15/17 at 17:00 Mirtazapine (Remeron) 15 mg QHS PO Last administered on 03/21/17at 19:21; Start 03/18/17 at 21:00 Trazodone HCl (Desyrel) 25 mg PRN QHS PRN PO INSOMNIA, MAY REPEAT X1 Last administered on 03/18/17at 19:28; Start 03/18/17 at 19:00 Active Scripts Active Reported Loperamide (Loperamide Hcl) 2 Mg Tablet 4 Mg PO PRN DAILY PRN Acetaminophen 325 Mg Tablet 325 Mg PO PRN Q6HRS PRN [Abh Cream] 1 Ml TD PRN TID PRN Vitamin D3 (Cholecalciferol (Vitamin D3)) 2,000 Unit Capsule 2,000 Unit PO DAILY Vitamin C (Ascorbic Acid) 1,000 Mg Tablet 1,000 Mg PO DAILY Zoloft (Sertraline Hcl) 50 Mg Tablet 50 Mg PO DAILY Seroquel (Quetiapine Fumarate) 25 Mg Tablet 25 Mg PO TID Namenda Xr (Memantine Hcl) 28 Mg Cap.spr.24 28 Mg PO DAILY Toprol Xl (Metoprolol Succinate) 50 Mg Tab.er.24h 50 Mg PO DAILY Levothyroxine Sodium 150 Mcg Tablet 150 Mcg PO DAILYAC Zyprexa Zydis (Olanzapine) 5 Mg Tab.rapdis 2.5 Mg PO PRN Q2HR PRN MDD 7.5 [Donepezil] 23 Mg PO QHS Cyanocobalamin Injection (Cyanocobalamin (Vitamin B-12)) 1,000 Mcg/1 Ml Vial 1, 000 Mcg IJ QMONTH Citracal + D Er Tablet (Calcium Carb & Cit/Vitamin D3) 1 Each Tablet.er 1 Each PO DAILY Norvasc (Amlodipine Besylate) 5 Mg Tablet 5 Mg PO DAILY Alendronate Sodium 70 Mg Tablet 70 Mg PO QFR I have reviewed the current psychotropics carefully including drug interactions. Risk benefit ratio favors no change other than as noted in my dictated progress note. Diagnosis: Problems: (1) Anxiety disorder (2) Impulse control disorder (3) Dementia, vascular, with depression (4) Dementia, vascular, with delusions (5) Dementia in Alzheimer's disease with depression (6) Dementia in Alzheimer's disease with delusions (7) Suicidal ideation (8) Dementia with behavioral disturbance FALGUNI RUBIO MD Mar 22, 2017 20:00
[2017-03-22] MEDS: MIRTAZAPINE 15 MG TABLET PO SCH (20:18)
[2017-03-22] MEDS: DONEPEZIL 23 MG TABLET PO SCH (20:18)
[2017-03-23] MEDS: traZODone 50 MG TABLET. PO PRN ×3 (00:27→23:22)
[2017-03-23 08:10] LABS: BASO # 0.1 x10^3/uL (0.0-0.2); BASO % 1 % (0-3); EOS # 0.1 x10^3/uL (0.0-0.7); EOS % 2 % (0-3); HEMATOCRIT 34.2 % (36.0-47.0); HEMOGLOBIN 11.4 g/dL (12.0-15.5); LYMPH # 1.8 x10^3/uL (1.0-4.8); LYMPH % 26 % (24-48); MEAN CORPUSCULAR HEMOGLOBIN 35 pg (25-35); MEAN CORPUSCULAR HGB CONC 34 g/dL (31-37); MEAN CORPUSCULAR VOLUME 103 fL (79-100); MONO # 0.9 x10^3/uL (0.0-1.1); MONO % 13 % (0-9); NEUT % 58 % (31-73); PLATELET COUNT 204 x10^3/uL (140-400); RED BLOOD COUNT 3.31 x10^6/uL (3.50-5.40); RED CELL DISTRIBUTION WIDTH 13.8 % (11.5-14.5); WHITE BLOOD COUNT 6.9 x10^3/uL (4.0-11.0)
[2017-03-23 08:16] LABS: ALBUMIN/GLOBULIN RATIO 0.8 (1.0-1.7); ALK PHOS 72 U/L (46-116); ALT (SGPT) 36 U/L (14-59); ANION GAP 6 (6-14); AST (SGOT) 23 U/L (15-37); BLOOD UREA NITROGEN 18 mg/dL (7-20); BUN/CREATININE RATIO 23 (6-20); CALCIUM 8.5 mg/dL (8.5-10.1); CARBON DIOXIDE 29 mmol/L (21-32); CHLORIDE 107 mmol/L (98-107); CREATININE 0.8 mg/dL (0.6-1.0); GFR 68.5; GLUCOSE 87 mg/dL (70-99); MAGNESIUM 2.2 mg/dL (1.8-2.4); POTASSIUM 4.6 mmol/L (3.5-5.1); SODIUM 142 mmol/L (136-145); TOTAL BILIRUBIN 0.2 mg/dL (0.2-1.0); TOTAL PROTEIN 6.7 g/dL (6.4-8.2)
[2017-03-23 08:19] LABS: VAL ACID 31 mcg/mL (50-100)
[2017-03-23 08:40] VITALS: BP 145/80
[2017-03-23] MEDS: CHOLECALCIFEROL (VITAMIN D3) 1,000 UNIT TABLET PO SCH (10:18)
[2017-03-23] MEDS: QUEtiapine 50 MG TABLET. PO SCH ×3 (10:19→19:42)
[2017-03-23] MEDS: LEVOTHYROXINE 150 MCG TABLET PO SCH (10:19)
[2017-03-23] MEDS: ASCORBIC ACID 500 MG TABLET PO SCH (10:21)
[2017-03-23] MEDS: MEMANTINE 10 MG TABLET. PO SCH ×2 (10:21→19:42)
[2017-03-23] MEDS: amLODIPine BESYLATE 5 MG TABLET PO SCH (10:21)
[2017-03-23] MEDS: CALCIUM CARB/VIT D3 500/200 TABLET PO SCH (10:21)
[2017-03-23] MEDS: SERTRALINE 50 MG TABLET. PO SCH (10:22)
[2017-03-23] MEDS: METOPROLOL SUCC 24HR ER 50 MG TAB.ER.24H. PO SCH (10:22)
[2017-03-23] MEDS: VALPROATE ACID 250 MG/5 ML ORAL SOLUTION PO SCH ×3 (10:22→19:44)
[2017-03-23] MEDS: ALENDRONATE SODIUM 35 MG TABLET PO SCH (10:28)
[2017-03-23 16:29] VITALS: BP 101/60
[2017-03-23] MEDS: DONEPEZIL 23 MG TABLET PO SCH (19:42)
[2017-03-23] MEDS: MIRTAZAPINE 15 MG TABLET PO SCH (19:43)
[2017-03-24] MEDS: LEVOTHYROXINE 150 MCG TABLET PO SCH (06:00)
--- NOTE | 2017-03-24 08:10 | PN ---
DATE: 03/21/2017 This is a late entry, covers the elements not covered in my initial note, 03/21/2017. SUBJECTIVE: I met with the patient evening of 03/21/2017. Overall per nursing report, the patient has been more redirectable, less labile. REVIEW OF SYSTEMS: No CV, , pulmonary, eye, ENT system symptoms on review. Reliability poor. MENTAL STATUS EXAM: Oriented to herself. Insight, judgment, recent and remote memory, attention, concentration, fund of knowledge poor, consistent with her diagnosis as mentioned in my initial note. IMPRESSION: Major neurocognitive disorder, Alzheimer, vascular with depression, delusion, behavioral disturbance. PLAN: Continue psychotropics as mentioned in my initial note. MAN Minna RUBIO MD DR: JAMEE/rachael JOB#: [id number] / [id number]
--- NOTE | 2017-03-24 08:46 | PN ---
DATE: 03/22/2017 PSYCHIATRIC PROGRESS NOTE This is a late entry 03/22/2017 covers elements not covered in my initial note 03/22/2017. SUBJECTIVE: I met with the patient evening of 03/22/2017 and staffed at treatment team meeting with the entire team morning of 03/22/2017. Reviewed history, diagnosis. Appetite about 90%, sleeping 5-6 hours, cooperative, confused, wandering, exit seeking at times, attending groups moderately. REVIEW OF SYSTEMS: No CV, , pulmonary, eye, ENT system symptoms on review. Reliability poor. MENTAL STATUS EXAM: Oriented to herself. Insight, judgment, recent and remote memory, attention, concentration, fund of knowledge poor, consistent with her diagnosis mentioned in my initial note. IMPRESSION: Major neurocognitive disorder, Alzheimer, vascular with depression, delusion, behavioral disturbance. PLAN: Continue psychotropics mentioned in my initial note. Adjust as clinically indicated. FALGUNI RUBIO MD DR: JAMEE/rachael JOB#: [id number] / [id number]
[2017-03-24] MEDS: VALPROATE ACID 250 MG/5 ML ORAL SOLUTION PO SCH ×3 (08:57→19:36)
[2017-03-24] MEDS: MEMANTINE 10 MG TABLET. PO SCH ×2 (08:57→19:35)
[2017-03-24] MEDS: CHOLECALCIFEROL (VITAMIN D3) 1,000 UNIT TABLET PO SCH (09:00)
[2017-03-24] MEDS: ASCORBIC ACID 500 MG TABLET PO SCH (09:00)
[2017-03-24] MEDS: amLODIPine BESYLATE 5 MG TABLET PO SCH (09:00)
[2017-03-24] MEDS: CALCIUM CARB/VIT D3 500/200 TABLET PO SCH (09:00)
[2017-03-24] MEDS: QUEtiapine 50 MG TABLET. PO SCH ×3 (09:00→19:35)
[2017-03-24] MEDS: METOPROLOL SUCC 24HR ER 50 MG TAB.ER.24H. PO SCH (09:00)
[2017-03-24] MEDS: SERTRALINE 50 MG TABLET. PO SCH (09:00)
--- NOTE | 2017-03-24 09:46 | PDOC ---
Exam Note: Brenden Note: Please also refer to the separate dictated note~for this date of service dictated separately.~Patient seen individually. Discussed the patient with Nursing staff reviewed the chart.~Reviewed interim history and current functioning. Reviewed vital signs,~Labs/ Radiology~and current medications noted below. Continue current treatment with the changes noted in the dictated addendum note. This is a late entry for date of service March 23, 2017 Assessment: Vital Signs: VS - Last 72 Hours, by Label Date Time Temp Pulse Resp B/P (MAP) Pulse Ox O2 Delivery O2 Flow Rate FiO2 03/23/17 16:29 97.9 70 20 101/60 (74) 96 Room Air 03/23/17 10:22 71 145/80 03/23/17 10:21 71 145/80 03/23/17 08:40 145/80 (101) 03/22/17 16:05 97.1 71 18 102/59 (73) 96 03/22/17 08:56 61 123/52 03/22/17 08:56 61 123/52 03/22/17 05:58 98.8 61 18 123/52 (75) 96 03/21/17 15:54 98.2 66 18 100/53 (69) 95 Vital Signs Date Time Temp Pulse Resp B/P (MAP) Pulse Ox O2 Delivery O2 Flow Rate FiO2 03/23/17 16:29 97.9 70 20 101/60 (74) 96 Room Air I&O Intake and Output 03/24/17 07:00 Intake Total 1800 ml Balance 1800 ml Intake Oral 1800 ml Current Medications: Meds: Current Medications Acetaminophen (Tylenol) 650 mg PRN Q6HRS PRN PO PAIN / TEMP; Start 03/07/17 at 20:15; Stop 03/07/17 at 22:01; Status DC Acetaminophen (Tylenol) 650 mg PRN Q6HRS PRN PO PAIN / TEMP; Start 03/07/17 at 22:00 Multi-Ingredient Ointment (Analgesic [place]) 1 pillo PRN QID PRN TP MUSCLE PAIN; Start 03/07/17 at 22:00 Al Hydroxide/Mg Hydroxide (Mylanta Plus Xs) 15 ml PRN AFTMEALHC PRN PO DYSPEPSIA; Start 03/07/17 at 22:00 Magnesium Hydroxide (Milk Of Magnesia) 2,400 mg PRN QHS PRN PO CONSTIPATION; Start 03/07/17 at 22:00 Olanzapine (ZyPREXA ZYDIS) 2.5 mg PRN Q2HR PRN PO PSYCHOSIS Last administered on 03/14/17at 16:10; Start 03/07/17 at 22:15 Quetiapine Fumarate (SEROquel) 25 mg TID PO Last administered on 03/09/17at 13: 15; Start 03/08/17 at 09:00; Stop 03/09/17 at 18:21; Status DC Sertraline HCl (Zoloft) 50 mg DAILY PO Last administered on 03/24/17at 09:00; Start 03/08/17 at 09:00 Acetaminophen (Tylenol) 325 mg PRN Q6HRS PRN PO PAIN / TEMP; Start 03/08/17 at 06:00; Stop 03/10/17 at 14:41; Status DC Amlodipine Besylate (Norvasc) 5 mg DAILY PO Last administered on 03/23/17at 10: 21; Start 03/08/17 at 09:00 Cyanocobalamin (Vitamin B-12) 1,000 mcg QMONTH IM ; Start 03/08/17 at 09:00; Stop 03/08/17 at 11:44; Status DC Levothyroxine Sodium (Synthroid) 150 mcg DAILY06 PO Last administered on at 06:00; Start 03/08/17 at 07:30 Metoprolol Succinate (Toprol Xl) 50 mg DAILY PO Last administered on 03/23/17at 10:22; Start 03/08/17 at 09:00 Alendronate Sodium (Fosamax) 70 mg Q7D PO Last administered on 03/23/17at 10:28 ; Start 03/09/17 at 06:00 Ascorbic Acid (Vitamin C) 1,000 mg DAILY PO Last administered on 03/23/17at 10: 21; Start 03/08/17 at 09:00 Calcium/Vitamin D (Oscal D 500mg/ 200uts) 1 tab DAILY PO Last administered on at 10:21; Start 03/08/17 at 09:00 Vitamin D (Vitamin D3) 2,000 unit DAILY PO Last administered on 03/23/17at 10:18 ; Start 03/08/17 at 09:00 Loperamide HCl (Imodium) 4 mg PRN DAILY PRN PO LOOSE STOOL; Start 03/08/17 at 07:30 Memantine (Namenda) 10 mg BID PO Last administered on 03/24/17at 08:57; Start at 09:00 Non-Formulary Medication 1 ml PRN TID PRN TD ANXIETY / AGITATION; Start at 06:00; Stop 03/08/17 at 16:34; Status DC Donepezil HCl (Aricept) 23 mg QHS PO Last administered on 03/23/17at 19:42; Start 03/08/17 at 21:00 Cyanocobalamin (Vitamin B-12) 1,000 mcg QMONTH IM Last administered on at 08:06; Start 03/17/17 at 09:00 Quetiapine Fumarate (SEROquel) 37.5 mg TID PO Last administered on 03/13/17at 13 :14; Start 03/09/17 at 21:00; Stop 03/13/17 at 13:55; Status DC Hydroxyzine HCl (Atarax) 25 mg PRN TID PRN PO ANXIETY / AGITATION Last administered on 03/14/17at 16:10; Start 03/11/17 at 07:45 Lorazepam (Ativan) 0.25 mg PRN Q2HR PRN TP ANXIETY / AGITATION Last administered on 03/21/17at 20:31; Start 03/11/17 at 07:45 Valproic Acid (Depakene) 125 mg BIDWMEALS PEG Last administered on 03/15/17at 07 :57; Start 03/12/17 at 08:00; Stop 03/15/17 at 11:10; Status DC Quetiapine Fumarate (SEROquel) 50 mg TID PO Last administered on 03/14/17at 14: 55; Start 03/13/17 at 14:00; Stop 03/14/17 at 17:41; Status DC Mirtazapine (Remeron) 7.5 mg QHS PO Last administered on 03/17/17at 19:31; Start 03/13/17 at 21:00; Stop 03/18/17 at 18:53; Status DC Quetiapine Fumarate (SEROquel) 62.5 mg TID PO Last administered on 03/24/17at 09 :00; Start 03/14/17 at 21:00 Valproic Acid (Depakene) 125 mg TID@0900,1700,2100 PO Last administered on 03/24at 08:57; Start 03/15/17 at 17:00 Mirtazapine (Remeron) 15 mg QHS PO Last administered on 03/23/17at 19:43; Start 03/18/17 at 21:00 Trazodone HCl (Desyrel) 25 mg PRN QHS PRN PO INSOMNIA, MAY REPEAT X1 Last administered on 03/23/17at 23:22; Start 03/18/17 at 19:00 Active Scripts Active Reported Loperamide (Loperamide Hcl) 2 Mg Tablet 4 Mg PO PRN DAILY PRN Acetaminophen 325 Mg Tablet 325 Mg PO PRN Q6HRS PRN [Abh Cream] 1 Ml TD PRN TID PRN Vitamin D3 (Cholecalciferol (Vitamin D3)) 2,000 Unit Capsule 2,000 Unit PO DAILY Vitamin C (Ascorbic Acid) 1,000 Mg Tablet 1,000 Mg PO DAILY Zoloft (Sertraline Hcl) 50 Mg Tablet 50 Mg PO DAILY Seroquel (Quetiapine Fumarate) 25 Mg Tablet 25 Mg PO TID Namenda Xr (Memantine Hcl) 28 Mg Cap.spr.24 28 Mg PO DAILY Toprol Xl (Metoprolol Succinate) 50 Mg Tab.er.24h 50 Mg PO DAILY Levothyroxine Sodium 150 Mcg Tablet 150 Mcg PO DAILYAC Zyprexa Zydis (Olanzapine) 5 Mg Tab.rapdis 2.5 Mg PO PRN Q2HR PRN MDD 7.5 [Donepezil] 23 Mg PO QHS Cyanocobalamin Injection (Cyanocobalamin (Vitamin B-12)) 1,000 Mcg/1 Ml Vial 1, 000 Mcg IJ QMONTH Citracal + D Er Tablet (Calcium Carb & Cit/Vitamin D3) 1 Each Tablet.er 1 Each PO DAILY Norvasc (Amlodipine Besylate) 5 Mg Tablet 5 Mg PO DAILY Alendronate Sodium 70 Mg Tablet 70 Mg PO QFR I have reviewed the current psychotropics carefully including drug interactions. Risk benefit ratio favors no change other than as noted in my dictated progress note. Diagnosis: Problems: (1) Anxiety disorder (2) Impulse control disorder (3) Dementia, vascular, with depression (4) Dementia, vascular, with delusions (5) Dementia in Alzheimer's disease with depression (6) Dementia in Alzheimer's disease with delusions (7) Suicidal ideation (8) Dementia with behavioral disturbance FALGUNI RUBIO MD Mar 24, 2017 09:46
[2017-03-24 16:15] VITALS: BP 123/70
[2017-03-24] MEDS: MIRTAZAPINE 15 MG TABLET PO SCH (19:35)
[2017-03-24] MEDS: DONEPEZIL 23 MG TABLET PO SCH (19:35)
[2017-03-24] MEDS: traZODone 50 MG TABLET. PO PRN (19:36)
--- NOTE | 2017-03-24 22:19 | PDOC ---
Exam Note: Brenden Note: Please also refer to the separate dictated note~for this date of service dictated separately.~Patient seen individually. Discussed the patient with Nursing staff reviewed the chart.~Reviewed interim history and current functioning. Reviewed vital signs,~Labs/ Radiology~and current medications noted below. Continue current treatment with the changes noted in the dictated addendum note Assessment: Vital Signs: Vital Signs Date Time Temp Pulse Resp B/P (MAP) Pulse Ox O2 Delivery O2 Flow Rate FiO2 03/24/17 16:15 97.2 71 16 123/70 (87) 96 03/23/17 16:29 Room Air I&O Intake and Output 03/24/17 07:00 Intake Total 1800 ml Balance 1800 ml Intake Oral 1800 ml Current Medications: Meds: Current Medications Acetaminophen (Tylenol) 650 mg PRN Q6HRS PRN PO PAIN / TEMP; Start 03/07/17 at 20:15; Stop 03/07/17 at 22:01; Status DC Acetaminophen (Tylenol) 650 mg PRN Q6HRS PRN PO PAIN / TEMP; Start 03/07/17 at 22:00 Multi-Ingredient Ointment (Analgesic [place]) 1 pillo PRN QID PRN TP MUSCLE PAIN; Start 03/07/17 at 22:00 Al Hydroxide/Mg Hydroxide (Mylanta Plus Xs) 15 ml PRN AFTMEALHC PRN PO DYSPEPSIA; Start 03/07/17 at 22:00 Magnesium Hydroxide (Milk Of Magnesia) 2,400 mg PRN QHS PRN PO CONSTIPATION; Start 03/07/17 at 22:00 Olanzapine (ZyPREXA ZYDIS) 2.5 mg PRN Q2HR PRN PO PSYCHOSIS Last administered on 03/14/17at 16:10; Start 03/07/17 at 22:15 Quetiapine Fumarate (SEROquel) 25 mg TID PO Last administered on 03/09/17at 13: 15; Start 03/08/17 at 09:00; Stop 03/09/17 at 18:21; Status DC Sertraline HCl (Zoloft) 50 mg DAILY PO Last administered on 03/24/17at 09:00; Start 03/08/17 at 09:00 Acetaminophen (Tylenol) 325 mg PRN Q6HRS PRN PO PAIN / TEMP; Start 03/08/17 at 06:00; Stop 03/10/17 at 14:41; Status DC Amlodipine Besylate (Norvasc) 5 mg DAILY PO Last administered on 03/23/17at 10: 21; Start 03/08/17 at 09:00 Cyanocobalamin (Vitamin B-12) 1,000 mcg QMONTH IM ; Start 03/08/17 at 09:00; Stop 03/08/17 at 11:44; Status DC Levothyroxine Sodium (Synthroid) 150 mcg DAILY06 PO Last administered on at 06:00; Start 03/08/17 at 07:30 Metoprolol Succinate (Toprol Xl) 50 mg DAILY PO Last administered on 03/23/17 10:22; Start 03/08/17 at 09:00 Alendronate Sodium (Fosamax) 70 mg Q7D PO Last administered on 03/23/17at 10:28 ; Start 03/09/17 at 06:00 Ascorbic Acid (Vitamin C) 1,000 mg DAILY PO Last administered on 03/23/17at 10: 21; Start 03/08/17 at 09:00 Calcium/Vitamin D (Oscal D 500mg/ 200uts) 1 tab DAILY PO Last administered on 10:21; Start 03/08/17 at 09:00 Vitamin D (Vitamin D3) 2,000 unit DAILY PO Last administered on 03/23/17at 10:18 ; Start 03/08/17 at 09:00 Loperamide HCl (Imodium) 4 mg PRN DAILY PRN PO LOOSE STOOL; Start 03/08/17 at 07:30 Memantine (Namenda) 10 mg BID PO Last administered on 03/24/17at 19:35; Start at 09:00 Non-Formulary Medication 1 ml PRN TID PRN TD ANXIETY / AGITATION; Start at 06:00; Stop 03/08/17 at 16:34; Status DC Donepezil HCl (Aricept) 23 mg QHS PO Last administered on 03/24/17at 19:35; Start 03/08/17 at 21:00 Cyanocobalamin (Vitamin B-12) 1,000 mcg QMONTH IM Last administered on at 08:06; Start 03/17/17 at 09:00 Quetiapine Fumarate (SEROquel) 37.5 mg TID PO Last administered on 03/13/17at 13 :14; Start 03/09/17 at 21:00; Stop 03/13/17 at 13:55; Status DC Hydroxyzine HCl (Atarax) 25 mg PRN TID PRN PO ANXIETY / AGITATION Last administered on 03/14/17at 16:10; Start 03/11/17 at 07:45 Lorazepam (Ativan) 0.25 mg PRN Q2HR PRN TP ANXIETY / AGITATION Last administered on 03/21/17at 20:31; Start 03/11/17 at 07:45 Valproic Acid (Depakene) 125 mg BIDWMEALS PEG Last administered on 03/15/17at 07 :57; Start 03/12/17 at 08:00; Stop 03/15/17 at 11:10; Status DC Quetiapine Fumarate (SEROquel) 50 mg TID PO Last administered on 03/14/17at 14: 55; Start 03/13/17 at 14:00; Stop 03/14/17 at 17:41; Status DC Mirtazapine (Remeron) 7.5 mg QHS PO Last administered on 03/17/17at 19:31; Start 03/13/17 at 21:00; Stop 03/18/17 at 18:53; Status DC Quetiapine Fumarate (SEROquel) 62.5 mg TID PO Last administered on 03/24/17at 19 :35; Start 03/14/17 at 21:00 Valproic Acid (Depakene) 125 mg TID@0900,1700,2100 PO Last administered on 03/24at 19:36; Start 03/15/17 at 17:00 Mirtazapine (Remeron) 15 mg QHS PO Last administered on 03/24/17 19:35; Start 03/18/17 at 21:00 Trazodone HCl (Desyrel) 25 mg PRN QHS PRN PO INSOMNIA, MAY REPEAT X1 Last administered on 03/24/17at 19:36; Start 03/18/17 at 19:00 Active Scripts Active Reported Loperamide (Loperamide Hcl) 2 Mg Tablet 4 Mg PO PRN DAILY PRN Acetaminophen 325 Mg Tablet 325 Mg PO PRN Q6HRS PRN [Abh Cream] 1 Ml TD PRN TID PRN Vitamin D3 (Cholecalciferol (Vitamin D3)) 2,000 Unit Capsule 2,000 Unit PO DAILY Vitamin C (Ascorbic Acid) 1,000 Mg Tablet 1,000 Mg PO DAILY Zoloft (Sertraline Hcl) 50 Mg Tablet 50 Mg PO DAILY Seroquel (Quetiapine Fumarate) 25 Mg Tablet 25 Mg PO TID Namenda Xr (Memantine Hcl) 28 Mg Cap.spr.24 28 Mg PO DAILY Toprol Xl (Metoprolol Succinate) 50 Mg Tab.er.24h 50 Mg PO DAILY Levothyroxine Sodium 150 Mcg Tablet 150 Mcg PO DAILYAC Zyprexa Zydis (Olanzapine) 5 Mg Tab.rapdis 2.5 Mg PO PRN Q2HR PRN MDD 7.5 [Donepezil] 23 Mg PO QHS Cyanocobalamin Injection (Cyanocobalamin (Vitamin B-12)) 1,000 Mcg/1 Ml Vial 1, 000 Mcg IJ QMONTH Citracal + D Er Tablet (Calcium Carb & Cit/Vitamin D3) 1 Each Tablet.er 1 Each PO DAILY Norvasc (Amlodipine Besylate) 5 Mg Tablet 5 Mg PO DAILY Alendronate Sodium 70 Mg Tablet 70 Mg PO QFR I have reviewed the current psychotropics carefully including drug interactions. Risk benefit ratio favors no change other than as noted in my dictated progress note. Diagnosis: Problems: (1) Anxiety disorder (2) Impulse control disorder (3) Dementia, vascular, with depression (4) Dementia, vascular, with delusions (5) Dementia in Alzheimer's disease with depression (6) Dementia in Alzheimer's disease with delusions (7) Suicidal ideation (8) Dementia with behavioral disturbance FALGUNI RUBIO MD Mar 24, 2017 22:19
[2017-03-25] MEDS: LEVOTHYROXINE 150 MCG TABLET PO SCH (05:33)
[2017-03-25 06:16] VITALS: BP 128/82
[2017-03-25] MEDS: MEMANTINE 10 MG TABLET. PO SCH ×2 (08:59→19:25)
[2017-03-25] MEDS: VALPROATE ACID 250 MG/5 ML ORAL SOLUTION PO SCH ×3 (08:59→19:25)
[2017-03-25] MEDS: SERTRALINE 50 MG TABLET. PO SCH (08:59)
[2017-03-25] MEDS: CHOLECALCIFEROL (VITAMIN D3) 1,000 UNIT TABLET PO SCH (09:00)
[2017-03-25] MEDS: METOPROLOL SUCC 24HR ER 50 MG TAB.ER.24H. PO SCH (09:00)
[2017-03-25] MEDS: CALCIUM CARB/VIT D3 500/200 TABLET PO SCH (09:00)
[2017-03-25] MEDS: ASCORBIC ACID 500 MG TABLET PO SCH (09:00)
[2017-03-25] MEDS: QUEtiapine 50 MG TABLET. PO SCH ×3 (09:01→19:25)
[2017-03-25 16:16] VITALS: BP 126/79
[2017-03-25] MEDS: DONEPEZIL 23 MG TABLET PO SCH (19:25)
[2017-03-25] MEDS: MIRTAZAPINE 15 MG TABLET PO SCH (19:25)
[2017-03-25] MEDS: traZODone 50 MG TABLET. PO PRN (19:26)
--- NOTE | 2017-03-25 20:08 | PDOC ---
Exam Note: Brenden Note: Please also refer to the separate dictated note~for this date of service dictated separately.~Patient seen individually. Discussed the patient with Nursing staff reviewed the chart.~Reviewed interim history and current functioning. Reviewed vital signs,~Labs/ Radiology~and current medications noted below. Continue current treatment with the changes noted in the dictated addendum note Assessment: Vital Signs: Vital Signs Date Time Temp Pulse Resp B/P (MAP) Pulse Ox O2 Delivery O2 Flow Rate FiO2 03/25/17 16:16 98.3 75 18 126/79 (95) 96 Room Air I&O Intake and Output 03/25/17 07:00 Intake Total 1320 ml Balance 1320 ml Intake Oral 1320 ml Current Medications: Meds: Current Medications Acetaminophen (Tylenol) 650 mg PRN Q6HRS PRN PO PAIN / TEMP; Start 03/07/17 at 20:15; Stop 03/07/17 at 22:01; Status DC Acetaminophen (Tylenol) 650 mg PRN Q6HRS PRN PO PAIN / TEMP; Start 03/07/17 at 22:00 Multi-Ingredient Ointment (Analgesic [place]) 1 pillo PRN QID PRN TP MUSCLE PAIN; Start 03/07/17 at 22:00 Al Hydroxide/Mg Hydroxide (Mylanta Plus Xs) 15 ml PRN AFTMEALHC PRN PO DYSPEPSIA; Start 03/07/17 at 22:00 Magnesium Hydroxide (Milk Of Magnesia) 2,400 mg PRN QHS PRN PO CONSTIPATION; Start 03/07/17 at 22:00 Olanzapine (ZyPREXA ZYDIS) 2.5 mg PRN Q2HR PRN PO PSYCHOSIS Last administered on 03/14/17at 16:10; Start 03/07/17 at 22:15 Quetiapine Fumarate (SEROquel) 25 mg TID PO Last administered on 03/09/17at 13: 15; Start 03/08/17 at 09:00; Stop 03/09/17 at 18:21; Status DC Sertraline HCl (Zoloft) 50 mg DAILY PO Last administered on 03/25/17at 08:59; Start 03/08/17 at 09:00 Acetaminophen (Tylenol) 325 mg PRN Q6HRS PRN PO PAIN / TEMP; Start 03/08/17 at 06:00; Stop 03/10/17 at 14:41; Status DC Amlodipine Besylate (Norvasc) 5 mg DAILY PO Last administered on 03/23/17at 10: 21; Start 03/08/17 at 09:00; Stop 03/25/17 at 10:26; Status DC Cyanocobalamin (Vitamin B-12) 1,000 mcg QMONTH IM ; Start 03/08/17 at 09:00; Stop 03/08/17 at 11:44; Status DC Levothyroxine Sodium (Synthroid) 150 mcg DAILY06 PO Last administered on at 05:33; Start 03/08/17 at 07:30 Metoprolol Succinate (Toprol Xl) 50 mg DAILY PO Last administered on 03/23/17at 10:22; Start 03/08/17 at 09:00 Alendronate Sodium (Fosamax) 70 mg Q7D PO Last administered on 03/23/17at 10:28 ; Start 03/09/17 at 06:00 Ascorbic Acid (Vitamin C) 1,000 mg DAILY PO Last administered on 03/23/17at 10: 21; Start 03/08/17 at 09:00 Calcium/Vitamin D (Oscal D 500mg/ 200uts) 1 tab DAILY PO Last administered on at 10:21; Start 03/08/17 at 09:00 Vitamin D (Vitamin D3) 2,000 unit DAILY PO Last administered on 03/23/17at 10:18 ; Start 03/08/17 at 09:00 Loperamide HCl (Imodium) 4 mg PRN DAILY PRN PO LOOSE STOOL; Start 03/08/17 at 07:30 Memantine (Namenda) 10 mg BID PO Last administered on 03/25/17at 19:25; Start at 09:00 Non-Formulary Medication 1 ml PRN TID PRN TD ANXIETY / AGITATION; Start at 06:00; Stop 03/08/17 at 16:34; Status DC Donepezil HCl (Aricept) 23 mg QHS PO Last administered on 03/25/17at 19:25; Start 03/08/17 at 21:00 Cyanocobalamin (Vitamin B-12) 1,000 mcg QMONTH IM Last administered on at 08:06; Start 03/17/17 at 09:00 Quetiapine Fumarate (SEROquel) 37.5 mg TID PO Last administered on 03/13/17at 13 :14; Start 03/09/17 at 21:00; Stop 03/13/17 at 13:55; Status DC Hydroxyzine HCl (Atarax) 25 mg PRN TID PRN PO ANXIETY / AGITATION Last administered on 03/14/17at 16:10; Start 03/11/17 at 07:45 Lorazepam (Ativan) 0.25 mg PRN Q2HR PRN TP ANXIETY / AGITATION Last administered on 03/21/17at 20:31; Start 03/11/17 at 07:45 Valproic Acid (Depakene) 125 mg BIDWMEALS PEG Last administered on 03/15/17at 07 :57; Start 03/12/17 at 08:00; Stop 03/15/17 at 11:10; Status DC Quetiapine Fumarate (SEROquel) 50 mg TID PO Last administered on 03/14/17at 14: 55; Start 03/13/17 at 14:00; Stop 03/14/17 at 17:41; Status DC Mirtazapine (Remeron) 7.5 mg QHS PO Last administered on 03/17/17at 19:31; Start 03/13/17 at 21:00; Stop 03/18/17 at 18:53; Status DC Quetiapine Fumarate (SEROquel) 62.5 mg TID PO Last administered on 03/25/17at 19 :25; Start 03/14/17 at 21:00 Valproic Acid (Depakene) 125 mg TID@0900,1700,2100 PO Last administered on 03/25at 19:25; Start 03/15/17 at 17:00 Mirtazapine (Remeron) 15 mg QHS PO Last administered on 03/25/17 19:25; Start 03/18/17 at 21:00 Trazodone HCl (Desyrel) 25 mg PRN QHS PRN PO INSOMNIA, MAY REPEAT X1 Last administered on 03/25/17at 19:26; Start 03/18/17 at 19:00 Amlodipine Besylate (Norvasc) 2.5 mg DAILY PO ; Start 03/26/17 at 09:00 Active Scripts Active Reported Loperamide (Loperamide Hcl) 2 Mg Tablet 4 Mg PO PRN DAILY PRN Acetaminophen 325 Mg Tablet 325 Mg PO PRN Q6HRS PRN [Abh Cream] 1 Ml TD PRN TID PRN Vitamin D3 (Cholecalciferol (Vitamin D3)) 2,000 Unit Capsule 2,000 Unit PO DAILY Vitamin C (Ascorbic Acid) 1,000 Mg Tablet 1,000 Mg PO DAILY Zoloft (Sertraline Hcl) 50 Mg Tablet 50 Mg PO DAILY Seroquel (Quetiapine Fumarate) 25 Mg Tablet 25 Mg PO TID Namenda Xr (Memantine Hcl) 28 Mg Cap.spr.24 28 Mg PO DAILY Toprol Xl (Metoprolol Succinate) 50 Mg Tab.er.24h 50 Mg PO DAILY Levothyroxine Sodium 150 Mcg Tablet 150 Mcg PO DAILYAC Zyprexa Zydis (Olanzapine) 5 Mg Tab.rapdis 2.5 Mg PO PRN Q2HR PRN MDD 7.5 [Donepezil] 23 Mg PO QHS Cyanocobalamin Injection (Cyanocobalamin (Vitamin B-12)) 1,000 Mcg/1 Ml Vial 1, 000 Mcg IJ QMONTH Citracal + D Er Tablet (Calcium Carb & Cit/Vitamin D3) 1 Each Tablet.er 1 Each PO DAILY Norvasc (Amlodipine Besylate) 5 Mg Tablet 5 Mg PO DAILY Alendronate Sodium 70 Mg Tablet 70 Mg PO QFR I have reviewed the current psychotropics carefully including drug interactions. Risk benefit ratio favors no change other than as noted in my dictated progress note. Diagnosis: Problems: (1) Anxiety disorder (2) Impulse control disorder (3) Dementia, vascular, with depression (4) Dementia, vascular, with delusions (5) Dementia in Alzheimer's disease with depression (6) Dementia in Alzheimer's disease with delusions (7) Suicidal ideation (8) Dementia with behavioral disturbance FALGUNI RUBIO MD Mar 25, 2017 20:08
--- NOTE | 2017-03-25 20:44 | PN ---
DATE: 03/23/2017 This is a late entry 03/23/2017 covers elements not covered in my initial note 03/23/2017. I met with the patient in the evening of 03/23/2017. The patient slept 6-1/4 hours previous evening, takes her medications whole, took a shower, anxious, was somewhat agitated when she drops some honey on a sweatshirt, but handled this well. REVIEW OF SYSTEMS: No CV, , pulmonary, eye, ENT system symptoms on review. Reliability poor. MENTAL STATUS EXAM: Oriented to herself. Insight, judgment, recent and remote memory, attention, concentration, fund of knowledge poor, consistent with her diagnosis mentioned in my initial note. IMPRESSION: Major neurocognitive disorder, Alzheimer, vascular with depression, delusion. PLAN: Continue current psychotropics. MAN Minna RUBIO MD DR: JAMEE/rachael JOB#: [id number] / [id number]
--- NOTE | 2017-03-25 22:40 | PN ---
DATE: 03/24/2017 This is a late entry, covers the elements not covered in my initial note, 03/24/2017. SUBJECTIVE: I met with the patient in the evening of 03/24/2017. The patient remains confused, wanders the hallways, otherwise compliant, gets a little anxious, irritable at times, redirects. REVIEW OF SYSTEMS: No CV, , pulmonary, eye, ENT system symptoms on review. Reliability poor. MENTAL STATUS EXAM: Oriented to herself. Insight, judgment, recent and remote memory, attention, concentration, fund of knowledge poor, consistent with her diagnosis. IMPRESSION: Major neurocognitive disorder, Alzheimer, vascular with depression, delusion. PLAN: Continue current psychotropics, may need to increase Zoloft in due course. Valproic acid level therapeutic at 51. MAN Minna RUBIO MD DR: JAMEE/rachael JOB#: [id number] / [id number]
[2017-03-26 08:57] VITALS: BP 122/58
[2017-03-26] MEDS: amLODIPine BESYLATE 2.5 MG TABLET PO SCH (09:00)
[2017-03-26] MEDS: METOPROLOL SUCC 24HR ER 50 MG TAB.ER.24H. PO SCH (09:00)
[2017-03-26] MEDS: MEMANTINE 10 MG TABLET. PO SCH ×2 (09:02→20:18)
[2017-03-26] MEDS: QUEtiapine 50 MG TABLET. PO SCH ×3 (09:02→20:17)
[2017-03-26] MEDS: VALPROATE ACID 250 MG/5 ML ORAL SOLUTION PO SCH ×3 (09:02→20:17)
[2017-03-26] MEDS: CALCIUM CARB/VIT D3 500/200 TABLET PO SCH (09:02)
[2017-03-26] MEDS: LEVOTHYROXINE 150 MCG TABLET PO SCH (09:02)
[2017-03-26] MEDS: CHOLECALCIFEROL (VITAMIN D3) 1,000 UNIT TABLET PO SCH (09:03)
[2017-03-26] MEDS: ASCORBIC ACID 500 MG TABLET PO SCH (09:03)
[2017-03-26] MEDS: SERTRALINE 50 MG TABLET. PO SCH (09:03)
[2017-03-26 16:01] VITALS: BP 116/64
--- NOTE | 2017-03-26 20:03 | PDOC ---
Exam Note: Brenden Note: Please also refer to the separate dictated note~for this date of service dictated separately.~Patient seen individually. Discussed the patient with Nursing staff reviewed the chart.~Reviewed interim history and current functioning. Reviewed vital signs,~Labs/ Radiology~and current medications noted below. Continue current treatment with the changes noted in the dictated addendum note Assessment: Vital Signs: Vital Signs Date Time Temp Pulse Resp B/P (MAP) Pulse Ox O2 Delivery O2 Flow Rate FiO2 03/26/17 16:01 97.4 76 16 116/64 (81) 95 03/25/17 16:16 Room Air I&O Intake and Output 03/26/17 07:00 Intake Total 1200 ml Balance 1200 ml Intake Oral 1200 ml # Voids 1 # Bowel Movements 1 Current Medications: Meds: Current Medications Acetaminophen (Tylenol) 650 mg PRN Q6HRS PRN PO PAIN / TEMP; Start 03/07/17 at 20:15; Stop 03/07/17 at 22:01; Status DC Acetaminophen (Tylenol) 650 mg PRN Q6HRS PRN PO PAIN / TEMP; Start 03/07/17 at 22:00 Multi-Ingredient Ointment (Analgesic [place]) 1 pillo PRN QID PRN TP MUSCLE PAIN; Start 03/07/17 at 22:00 Al Hydroxide/Mg Hydroxide (Mylanta Plus Xs) 15 ml PRN AFTMEALHC PRN PO DYSPEPSIA; Start 03/07/17 at 22:00 Magnesium Hydroxide (Milk Of Magnesia) 2,400 mg PRN QHS PRN PO CONSTIPATION; Start 03/07/17 at 22:00 Olanzapine (ZyPREXA ZYDIS) 2.5 mg PRN Q2HR PRN PO PSYCHOSIS Last administered on 03/14/17at 16:10; Start 03/07/17 at 22:15 Quetiapine Fumarate (SEROquel) 25 mg TID PO Last administered on 03/09/17at 13: 15; Start 03/08/17 at 09:00; Stop 03/09/17 at 18:21; Status DC Sertraline HCl (Zoloft) 50 mg DAILY PO Last administered on 03/26/17at 09:03; Start 03/08/17 at 09:00 Acetaminophen (Tylenol) 325 mg PRN Q6HRS PRN PO PAIN / TEMP; Start 03/08/17 at 06:00; Stop 03/10/17 at 14:41; Status DC Amlodipine Besylate (Norvasc) 5 mg DAILY PO Last administered on 03/23/17at 10: 21; Start 03/08/17 at 09:00; Stop 03/25/17 at 10:26; Status DC Cyanocobalamin (Vitamin B-12) 1,000 mcg QMONTH IM ; Start 03/08/17 at 09:00; Stop 03/08/17 at 11:44; Status DC Levothyroxine Sodium (Synthroid) 150 mcg DAILY06 PO Last administered on at 09:02; Start 03/08/17 at 07:30 Metoprolol Succinate (Toprol Xl) 50 mg DAILY PO Last administered on 03/23/17at 10:22; Start 03/08/17 at 09:00 Alendronate Sodium (Fosamax) 70 mg Q7D PO Last administered on 03/23/17at 10:28 ; Start 03/09/17 at 06:00 Ascorbic Acid (Vitamin C) 1,000 mg DAILY PO Last administered on 03/26/17at 09: 03; Start 03/08/17 at 09:00 Calcium/Vitamin D (Oscal D 500mg/ 200uts) 1 tab DAILY PO Last administered on at 09:02; Start 03/08/17 at 09:00 Vitamin D (Vitamin D3) 2,000 unit DAILY PO Last administered on 03/26/17at 09:03 ; Start 03/08/17 at 09:00 Loperamide HCl (Imodium) 4 mg PRN DAILY PRN PO LOOSE STOOL; Start 03/08/17 at 07:30 Memantine (Namenda) 10 mg BID PO Last administered on 03/26/17at 09:02; Start at 09:00 Non-Formulary Medication 1 ml PRN TID PRN TD ANXIETY / AGITATION; Start at 06:00; Stop 03/08/17 at 16:34; Status DC Donepezil HCl (Aricept) 23 mg QHS PO Last administered on 03/25/17at 19:25; Start 03/08/17 at 21:00 Cyanocobalamin (Vitamin B-12) 1,000 mcg QMONTH IM Last administered on at 08:06; Start 03/17/17 at 09:00 Quetiapine Fumarate (SEROquel) 37.5 mg TID PO Last administered on 03/13/17at 13 :14; Start 03/09/17 at 21:00; Stop 03/13/17 at 13:55; Status DC Hydroxyzine HCl (Atarax) 25 mg PRN TID PRN PO ANXIETY / AGITATION Last administered on 03/14/17at 16:10; Start 03/11/17 at 07:45 Lorazepam (Ativan) 0.25 mg PRN Q2HR PRN TP ANXIETY / AGITATION Last administered on 03/21/17at 20:31; Start 03/11/17 at 07:45 Valproic Acid (Depakene) 125 mg BIDWMEALS PEG Last administered on 03/15/17at 07 :57; Start 03/12/17 at 08:00; Stop 03/15/17 at 11:10; Status DC Quetiapine Fumarate (SEROquel) 50 mg TID PO Last administered on 03/14/17at 14: 55; Start 03/13/17 at 14:00; Stop 03/14/17 at 17:41; Status DC Mirtazapine (Remeron) 7.5 mg QHS PO Last administered on 03/17/17at 19:31; Start 03/13/17 at 21:00; Stop 03/18/17 at 18:53; Status DC Quetiapine Fumarate (SEROquel) 62.5 mg TID PO Last administered on 03/26/17at 13 :31; Start 03/14/17 at 21:00 Valproic Acid (Depakene) 125 mg TID@0900,1700,2100 PO Last administered on 03/26 17:16; Start 03/15/17 at 17:00 Mirtazapine (Remeron) 15 mg QHS PO Last administered on 03/25/17 19:25; Start 03/18/17 at 21:00 Trazodone HCl (Desyrel) 25 mg PRN QHS PRN PO INSOMNIA, MAY REPEAT X1 Last administered on 03/25/17 19:26; Start 03/18/17 at 19:00 Amlodipine Besylate (Norvasc) 2.5 mg DAILY PO ; Start 03/26/17 at 09:00 Active Scripts Active Reported Loperamide (Loperamide Hcl) 2 Mg Tablet 4 Mg PO PRN DAILY PRN Acetaminophen 325 Mg Tablet 325 Mg PO PRN Q6HRS PRN [Abh Cream] 1 Ml TD PRN TID PRN Vitamin D3 (Cholecalciferol (Vitamin D3)) 2,000 Unit Capsule 2,000 Unit PO DAILY Vitamin C (Ascorbic Acid) 1,000 Mg Tablet 1,000 Mg PO DAILY Zoloft (Sertraline Hcl) 50 Mg Tablet 50 Mg PO DAILY Seroquel (Quetiapine Fumarate) 25 Mg Tablet 25 Mg PO TID Namenda Xr (Memantine Hcl) 28 Mg Cap.spr.24 28 Mg PO DAILY Toprol Xl (Metoprolol Succinate) 50 Mg Tab.er.24h 50 Mg PO DAILY Levothyroxine Sodium 150 Mcg Tablet 150 Mcg PO DAILYAC Zyprexa Zydis (Olanzapine) 5 Mg Tab.rapdis 2.5 Mg PO PRN Q2HR PRN MDD 7.5 [Donepezil] 23 Mg PO QHS Cyanocobalamin Injection (Cyanocobalamin (Vitamin B-12)) 1,000 Mcg/1 Ml Vial 1, 000 Mcg IJ QMONTH Citracal + D Er Tablet (Calcium Carb & Cit/Vitamin D3) 1 Each Tablet.er 1 Each PO DAILY Norvasc (Amlodipine Besylate) 5 Mg Tablet 5 Mg PO DAILY Alendronate Sodium 70 Mg Tablet 70 Mg PO QFR I have reviewed the current psychotropics carefully including drug interactions. Risk benefit ratio favors no change other than as noted in my dictated progress note. Diagnosis: Problems: (1) Anxiety disorder (2) Impulse control disorder (3) Dementia, vascular, with depression (4) Dementia, vascular, with delusions (5) Dementia in Alzheimer's disease with depression (6) Dementia in Alzheimer's disease with delusions (7) Suicidal ideation (8) Dementia with behavioral disturbance FALGUNI RUBIO MD Mar 26, 2017 20:03
[2017-03-26] MEDS: MIRTAZAPINE 15 MG TABLET PO SCH (20:17)
[2017-03-26] MEDS: DONEPEZIL 23 MG TABLET PO SCH (20:18)
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
[2017-03-27] MEDS ORDERED: MAG355OR42 PO (03:48)
[2017-03-27] MEDS ORDERED: MAGN2400 PO (03:49)
[2017-03-27] MEDS ORDERED: METH113C6 TP (03:50)
[2017-03-27] MEDS ORDERED: MIRT15TA3 PO (03:50)
[2017-03-27] MEDS ORDERED: VALP250S PO (03:52)
[2017-03-27] MEDS ORDERED: HYDR25TA PO (03:53)
[2017-03-27] MEDS ORDERED: TRAZ50TA15 PO (03:54)
[2017-03-27 06:13] VITALS: BP 147/84
[2017-03-27] MEDS: LEVOTHYROXINE 150 MCG TABLET PO SCH (06:27)
[2017-03-27] MEDS: VALPROATE ACID 250 MG/5 ML ORAL SOLUTION PO SCH ×2 (09:20→16:53)
[2017-03-27] MEDS: CALCIUM CARB/VIT D3 500/200 TABLET PO SCH (09:20)
[2017-03-27] MEDS: ASCORBIC ACID 500 MG TABLET PO SCH (09:21)
[2017-03-27] MEDS: amLODIPine BESYLATE 2.5 MG TABLET PO SCH (09:21)
[2017-03-27] MEDS: CHOLECALCIFEROL (VITAMIN D3) 1,000 UNIT TABLET PO SCH (09:21)
[2017-03-27] MEDS: MEMANTINE 10 MG TABLET. PO SCH (09:21)
[2017-03-27] MEDS: SERTRALINE 50 MG TABLET. PO SCH (09:21)
[2017-03-27] MEDS: METOPROLOL SUCC 24HR ER 50 MG TAB.ER.24H. PO SCH (09:23)
[2017-03-27] MEDS: QUEtiapine 50 MG TABLET. PO SCH ×2 (09:23→13:28)
[2017-03-27 15:58] VITALS: BP 119/58
== END 2017-03-27 17:35 | disposition home or self-care (01) | DRG 884 ==
LOC: ER 18:15 → GEROPSY 21:30
PROVIDERS: ADMIT Psychiatry & Neurology Psychiatry; ATTEND Psychiatry & Neurology Psychiatry
DX: F01.51 Vascular dementia, unspecified severity, with behavioral disturbance (principal); G30.9 Alzheimer's disease, unspecified; R45.851 Suicidal ideations; F02.81 Dementia in other diseases classified elsewhere, unspecified severity, with behavioral disturbance; F22 Delusional disorders; E03.9 Hypothyroidism, unspecified; M19.90 Unspecified osteoarthritis, unspecified site; I10 Essential (primary) hypertension; G47.00 Insomnia, unspecified; F63.9 Impulse disorder, unspecified; F41.9 Anxiety disorder, unspecified; F32.9 Major depressive disorder, single episode, unspecified; Z78.1 Physical restraint status; Z79.899 Other long term (current) drug therapy; Z91.19 Patient's noncompliance with other medical treatment and regimen; Z88.2 Allergy status to sulfonamides
CPT/HCPCS: 36415; 80053; 80061; 80164; 81001; 82607; 83036; 83540; 83550; 83735; 84436; 84443; 84480; 85025; 86593; 93005; J3420; 99285-25

== ENCOUNTER 2017-04-30 18:25 | Emergency (ER) | payer MEDICARE, OTHER ==
[~2017-04-30] VITALS: Ht 167.6 cm; Wt 68.0 kg
[~2017-04-30 18:25] MED LIST: ABH CREAM TD; ACET325T21 PO; ALEN70TA5 PO; AMLO5TAB4 PO; ASCO10002 PO; CALC-112 PO; CHOL20009 PO; CYAN10002 IM; DONEPEZIL PO; HYDR25TA PO; LEVO150T5 PO; LOPE2TAB27 PO; MAG355OR42 PO; MAGN2400 PO; MEMA28CA PO; METH113C6 TP; METO50TA4 PO; MIRT15TA3 PO; OLAN5TAB5 PO; QUET25TA5 PO; SERT50TA PO; TRAZ50TA15 PO; VALP250S PO
[2017-04-30 18:38] VITALS: BP 145/64
[2017-04-30 19:34] LABS: BASO % 1 % (0-3); EOS % 0 % (0-3); HEMOGLOBIN 12.2 g/dL (12.0-15.5); LYMPH # 2.3 x10^3/uL (1.0-4.8); LYMPH % 28 % (24-48); MEAN CORPUSCULAR HEMOGLOBIN 34 pg (25-35); MEAN CORPUSCULAR HGB CONC 34 g/dL (31-37); MEAN CORPUSCULAR VOLUME 102 fL (79-100); MONO # 0.6 x10^3/uL (0.0-1.1); MONO % 8 % (0-9); NEUT # 5.1 x10^3uL (1.8-7.7); NEUT % 64 % (31-73); PLATELET COUNT 221 x10^3/uL (140-400); RED BLOOD COUNT 3.53 x10^6/uL (3.50-5.40); RED CELL DISTRIBUTION WIDTH 13.3 % (11.5-14.5); WHITE BLOOD COUNT 8.1 x10^3/uL (4.0-11.0)
[2017-04-30 19:40] LABS: ALBUMIN 3.6 g/dL (3.4-5.0); ALBUMIN/GLOBULIN RATIO 0.9 (1.0-1.7); CALCIUM 8.8 mg/dL (8.5-10.1); CREATININE 0.8 mg/dL (0.6-1.0); GFR 68.5; POTASSIUM 3.8 mmol/L (3.5-5.1); TOTAL BILIRUBIN 0.3 mg/dL (0.2-1.0); TOTAL PROTEIN 7.5 g/dL (6.4-8.2)
[2017-04-30 20:07] LABS: BACTERIA,URINE FEW /HPF (0-FEW); BILIRUBIN,URINE NEG (NEG); CLARITY,URINE HAZY; COLOR,URINE YELLOW; GLUCOSE,URINE NEG (NEG); NITRITE,URINE NEG (NEG); SQUAMOUS EPITHELIAL CELL,UR FEW /LPF; UROBILINOGEN,URINE 0.2 mg/dL (0.2 mg/dL)
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
[2017-04-30] MEDS ORDERED: LORazepam 2 MG/ML VIAL ONE (21:39)
[2017-04-30] MEDS ORDERED: LORazepam 2 MG/ML VIAL IM ONE ×2 (21:45)
--- NOTE | 2017-05-01 00:51 | EKG ---
[address] [address] Test Date: 2017-04-30 Test Time: 19:01:16 Pat Name: GAYLA PRINGLE Department: Room: Gender: F [employer] Supervisor: : [id number] Requested By: SINDY LIZARRAGA Order Number: [id number] Reading MD: Measurements Intervals [place] Rate: 61 P: 0 AL: 166 QRS: 160 QRSD: 146 T: 64 QT: 486 QTc: 491 Interpretive Statements SINUS RHYTHM COMPLEX(ES) WITH ABERRANT INTRAVENTRICULAR CONDUCTION ABNORMAL RIGHT AXIS DEVIATION RIGHT BUNDLE BRANCH BLOCK RVH WITH REPOLARIZATION ABNORMALITY ABNORMAL ECG RI6.01 No previous ECG available for comparison
== END 2017-04-30 22:22 | disposition home or self-care (01) ==
LOC: ER 18:25
DX: F63.9 Impulse disorder, unspecified (principal); G30.9 Alzheimer's disease, unspecified; F02.80 Dementia in other diseases classified elsewhere, unspecified severity, without behavioral disturbance, psychotic disturbance, mood disturbance, and anxiety; I10 Essential (primary) hypertension; F32.9 Major depressive disorder, single episode, unspecified; E03.9 Hypothyroidism, unspecified; Z88.2 Allergy status to sulfonamides
CPT/HCPCS: 36415; 80053; 81001; 82607; 83540; 83550; 83735; 85025; 93005; 96372; 99285; J2060; 87086